=== PATIENT | female | born 1970 | race Two or more races ===

== ENCOUNTER 2020-03-27 09:09 | Day surgery (SDC) | payer OTHER, SELFPAY ==
--- NOTE | 2020-03-24 12:59 | HO.ANESPROP2 ---
Documented by User: Bibiana Angeles 03/26/20 14:35 HPI - Anesthesia Eval Consult details Narrative: 49yo F for uterine ablation PMFSH Past Medical History Medical History Anemia Arthritis, hip Asthma Hiatal hernia Migraine Family History Family History Father Diabetes mellitus Mother Cervical cancer Diabetes mellitus Maternal Aunt Cervical cancer Lung cancer Son No problems noted. Son No problems noted. Son No problems noted. Daughter No problems noted. Surgical History Surgical History History of appendectomy History of bilateral tubal ligation History of removal of ovarian cyst Social History Social History Are you a primary pharmacy care coordinator to a significant other at home: No Do you presently have visiting nurse or other home services: No Smoking Status: Current every day smoker Packs Per Day: 0.5 Cigarettes Per Day: 10.0 Years Smoked: 30 Smoked in Last 30 Days: Yes Patient Interested in Nicotine Replacement: No Patient Given Instructions on How to Stop Smoking: No Use of substances other than those prescribed or required for medical reasons: No Have you been hit, kicked, punched, or otherwise hurt by someone within the past year? If so, by whom?: No Advance Directives: No Advance Directives Information Provided: Yes (n/a) Advance Directives on File: No Recently lost weight without trying: No Meds Allergies Allergy/AdvReac Type Severity Reaction Status Date / Time penicillin V Allergy Unknown Unverified 12/18/19 00:00 Penicillins [PENICILLINS] Allergy Unknown RASH Unverified 03/12/20 19:11 Home Medications Medication Instructions Recorded Confirmed Type cholecalciferol (vitamin D3) 50 50 mcg PO DAILY 03/24/20 History mcg (2,000 unit) tablet esomeprazole magnesium 1 cap PO DAILY 03/24/20 03/24/20 History ferrous sulfate 325 mg (65 mg 325 mg PO DAILY 03/24/20 History iron) tablet fluticasone propionate INTRANASAL 03/24/20 History levonorgestrel 20 mcg/24 hours (5 VAGINAL 03/24/20 History yrs) 52 mg intrauterine device sucralfate 1 gram tablet PO 03/24/20 History sucralfate [Carafate] 10 ml PO BID 03/24/20 03/24/20 History Exam Exam Date and Time: March 24, 2020 1259 Pertinent Lab Results Pertinent Lab Results: 11/2019 WBC 8.8 HGB 11.1 (L) HCT 34.9 (L) PLT 305 Na 140 K 3.7 Cl 104 CO2 26 BUN 8 Creat 0.69 ECHO 02/2019: LV sys func nml, EF 55-60%, LA mod dilated, no valve pathology Assessment and Plan Assessment Anesthesia Assessment: Chart Reviewed (03/24/20 HT) Documented by User: Katy Mckinney 03/27/20 10:35 PMFSH Past Medical History Medical History Anemia Arthritis, hip Asthma Hiatal hernia Migraine Family History Family History Father Diabetes mellitus Mother Cervical cancer Diabetes mellitus Maternal Aunt Cervical cancer Lung cancer Son No problems noted. Son No problems noted. Son No problems noted. Daughter No problems noted. Surgical History Surgical History History of appendectomy History of bilateral tubal ligation History of removal of ovarian cyst Social History Social History Are you a primary pharmacy care coordinator to a significant other at home: No Do you presently have visiting nurse or other home services: No Smoking Status: Current every day smoker Packs Per Day: 0.5 Cigarettes Per Day: 10.0 Years Smoked: 30 Smoked in Last 30 Days: Yes Patient Interested in Nicotine Replacement: No Patient Given Instructions on How to Stop Smoking: No Use of substances other than those prescribed or required for medical reasons: No Have you been hit, kicked, punched, or otherwise hurt by someone within the past year? If so, by whom?: No Advance Directives: No Advance Directives Information Provided: Yes (n/a) Advance Directives on File: No Recently lost weight without trying: No Meds Allergies Allergy/AdvReac Type Severity Reaction Status Date / Time penicillin V Allergy Unknown Unverified 12/18/19 00:00 Penicillins [PENICILLINS] Allergy Unknown RASH Unverified 03/12/20 19:11 Home Medications Medication Instructions Recorded Confirmed Type cholecalciferol (vitamin D3) 50 50 mcg PO DAILY 03/24/20 History mcg (2,000 unit) tablet esomeprazole magnesium 1 cap PO DAILY 03/24/20 03/24/20 History ferrous sulfate 325 mg (65 mg 325 mg PO DAILY 03/24/20 History iron) tablet fluticasone propionate INTRANASAL 03/24/20 History levonorgestrel 20 mcg/24 hours (5 VAGINAL 03/24/20 History yrs) 52 mg intrauterine device sucralfate 1 gram tablet PO 03/24/20 History sucralfate [Carafate] 10 ml PO BID 03/24/20 03/24/20 History Exam Airway Mallampati Class: II TM Dist: >3cm Neck ROM: Full Loose/Missing/Broken Teeth: No Heart: RRR Lungs: CTA Assessment and Plan Assessment Anesthesia Assessment: Anesthesia Plan Discussed, Consent Obtained and Chart Reviewed Final Anesthetic Review NPO: Yes ASA Class: II Final Preanesthetic Review: Meds & Allergies Reviewed, Consent Obtained/Reviewed, Med/Surg/Anes Hx Reviewed and Anes Risks/Benef Reviewed Patient Risk: Intermediate Procedure Risk: Low Anesthetic Plan Anesthetic Plan: GA Disposition: Standard PACU
[2020-03-27] VITALS (7 sets, daily range): BP systolic 112–143; BP diastolic 68–84; PULSE 64–83; RESP 16–18; TEMP 36.3–36.6; O2SAT 97–100; BMI 30.7
[2020-03-27 10:07] LABS: UPreg QC Valid YES; Urine Pregnancy NEGATIVE (NEGATIVE)
[2020-03-27] MEDS: Lactated Ringers 1,000 ML 100 ML IVCONT (10:08)
[2020-03-27] MEDS: Albuterol Sulfate (0.083%) 2.5 MG/3 ML VIAL.NEB INHALE (10:09)
--- NOTE | 2020-03-27 11:39 | PM.OP ---
Brief Operative Note Date of procedure: 03/27/20 Pre-op diagnosis: Menometrorrhagia Post-op diagnosis: same Procedure: NovaSure endometrial ablation Anesthesia: MAC Surgeon: Mauricio Menjivar Estimated blood loss (mL): 0 Pathology: none sent Condition: stable Disposition: PACU
--- NOTE | 2020-03-27 12:04 | P.BOP_ITS ---
Brief Operative Note Date of procedure: 03/27/20 Pre-op diagnosis: Menometrorrhagia Post-op diagnosis: same Procedure: NovaSure endometrial ablation Under MAC, in a dorsal lithotomy position, the patient was prepped and draped in the usual sterile manner. Bimanual exam prior to prepping revealed a mobile, anteverted uterus. A speculum was placed in the vagina and the anterior lip of the cervix was grasped with a single toothed tenaculum and brought forward. Taki ng care not to enter deep into the uterus, a sound was passed inside to measure the length of the uterus and cervix. This length was found to be 8 cm. Next, Hegar dilator was inserted into the cervical os to measure the cervical length which was 3 cm. This yielded an endometrial cavity length of 5 cm. A series of Hegar dilators were then inserted sequentially into the cervical os up to a size of 5 mm. The Novasure device was then opened and tested; the fan deployed easily. The instrument was set to the correct cavity length and introduced into the uterine cavity. The fan was slowly deployed with gentle movements to ensure a snug fit within the cavity. The cavity width read 4.5 cm. The measurements were imported and a cavity check was done. The trumpet was then slid down to the cervix and the device was activated. The total burn time was 90 seconds. The fan was retracted and device removed. The fan was examined and revealed charred tissue. The tenaculum was removed and the cervix examined for hemostasis which was achieved using pressure. Finally the speculum was removed. The patient tolerated the procedure well and was brought to the recovery room in a stable condition. At the end of the procedure all sponges and instruments were counted and correct. The blood loss was minimal and there were no complications. Anesthesia: MAC Surgeon: Mauricio Menjivar Estimated blood loss (mL): 0 Pathology: none sent Condition: stable Disposition: PACU
[2020-03-27] MEDS: Acetaminophen 325 MG TABLET 650 MG PO (12:35)
--- NOTE | 2020-03-27 13:25 | HO.POSTANES ---
Post Anesthesia Evaluation Post Anesthesia Evaluation Vital Signs: Vital Signs Temp Pulse Resp BP Pulse Ox 03/27/20 12:40 97.3 F 73 16 133/72 100 03/27/20 12:23 67 16 125/73 99 03/27/20 12:02 64 18 116/69 100 03/27/20 11:57 67 18 125/68 100 03/27/20 11:52 74 16 120/73 100 03/27/20 11:47 97.3 F 75 16 112/72 100 03/27/20 09:23 98 F 83 18 143/84 H 97 Anesthesia: General LMA Mental Status: Awake Pain Control: Satisfactory Nausea/Vomiting: None Hydration: Adequate Anesthesia-Related Issues: No Anes. Related Issues
== END 2020-03-27 13:35 | disposition home or self-care (01) ==
PROVIDERS: PCP Nurse Practitioner Family; Visit Provider Obstetrics & Gynecology
PROC: (CPT 58353; principal; 2020-03-27 11:20)
DX: N92.1 Excessive and frequent menstruation with irregular cycle (principal); Z98.51 Tubal ligation status; Z80.49 Family history of malignant neoplasm of other genital organs; D64.9 Anemia, unspecified; J45.909 Unspecified asthma, uncomplicated; Z79.51 Long term (current) use of inhaled steroids; Z79.899 Other long term (current) drug therapy; Z88.0 Allergy status to penicillin
CPT/HCPCS: 58353; 81025; J1100; J1885; J2250; J2405; J3010

== ENCOUNTER 2020-05-28 13:17 | Outpatient (REF) | payer OTHER, SELFPAY | END 2020-05-28 13:18 | disposition home or self-care (01) | LOC: HO.LAB 13:17 | PROVIDERS: Visit Provider Internal Medicine | DX: Z20.828 Contact with and (suspected) exposure to other viral communicable diseases (principal) | CPT/HCPCS: C9803; U0003 ==

== ENCOUNTER → 2020-06-10 14:46 | Outpatient (BNVA) | payer OTHER, SELFPAY | PROVIDERS: PCP Nurse Practitioner Family; Visit Provider Obstetrics & Gynecology | DX: Z76.89 Persons encountering health services in other specified circumstances (principal) ==

== ENCOUNTER 2020-07-23 14:20 | Outpatient (REF) | payer OTHER, SELFPAY | END 2020-07-23 14:21 | disposition home or self-care (01) | LOC: HO.LAB 14:20 | PROVIDERS: Visit Provider Internal Medicine | DX: Z20.822 Contact with and (suspected) exposure to COVID-19 (principal) | CPT/HCPCS: 36415; C9803; U0003 ==

== ENCOUNTER 2020-08-26 10:27 | Emergency (ER) | payer OTHER, SELFPAY ==
[2020-08-26 10:28] VITALS: BP 159/82; PULSE 77; RESP 16; TEMP 36.8; O2SAT 100; BMI 31.1
--- NOTE | 2020-08-26 12:11 | ED_ITS ---
HPI - Back Pain/Injury General Chief Complaint: Back Pain/Injury Stated Complaint: leg pain, low back pain Time Seen by Provider: 08/26/20 11:15 Source: patient Mode of arrival: ambulatory History of Present Illness HPI Narrative: 49-year-old female with a past medical history of anemia, arthritis, asthma, chronic constipation, GERD, appendectomy, migraines, presenting to the ED complaining of acute on chronic low back/buttock pain radia ting down right lower extremity x years. Denies known injury/trauma or falls, numbness/tingling, weakness, urinary incontinence/retention, fever, chills Related Data Home Medications Medication Instructions Recorded Confirmed esomeprazole magnesium 1 cap PO DAILY 03/24/20 06/10/20 fluticasone propionate INTRANASAL 03/24/20 06/10/20 esomeprazole magnesium 20 mg 20 mg PO DAILY 04/29/20 06/10/20 capsule,delayed release Previous Rx's Medication Instructions Recorded acetaminophen [Tylenol] 650 mg PO Q6H PRN #30 cap 03/27/20 ibuprofen 600 mg PO Q8H PRN #20 tab 03/27/20 esomeprazole magnesium 20 mg 20 mg PO BID 30 Days #60 cap 04/20/20 capsule,delayed release sennosides 8.6 mg-docusate sodium 1 tab-cap PO BEDTIME 30 Days #30 04/20/20 50 mg tablet tab acetaminophen [Tylenol Extra 500 mg PO Q6H PRN #20 tab 08/26/20 Strength] cyclobenzaprine 5 mg PO Q8H PRN 5 Days #14 tab 08/26/20 lidocaine [Lidoderm] 1 patch TOPICAL DAILY PRN #30 ea 08/26/20 MDD remove after 12 hours Allergies Allergy/AdvReac Type Severity Reaction Status Date / Time penicillin V Allergy Unknown rash, hives Verified 06/10/20 15:01 Penicillins [PENICILLINS] Allergy Unknown RASH Verified 06/10/20 15:01 Review of Systems Review of Systems: Constitutional: No Fever, No Chills Genitourinary: No Urinary Frequency, No Hematuria, No Urinary Incontinence/retention Musculoskeletal: +back pain/buttock, No Myalgias, No Joint Swelling Skin: No Skin Lesions, No rash Neuro: No Weakness, No Numbness, No Paresthesias Yes all other systems are reviewed and are negative [facility] Past Medical History Attestation statement: The following information was validated with the patient. Medical History (Updated 08/26/20 @ 12:12 by SANGITA Carr) Anemia Arthritis, hip Asthma Chronic constipation LUCI I (cervical intraepithelial neoplasia I) GERD (gastroesophageal reflux disease) Hiatal hernia Mesenteric panniculitis Migraine Uterine fibroid Surgical History History of appendectomy History of bilateral tubal ligation History of colonoscopy History of removal of ovarian cyst Hx of endoscopy Family History Family History Father Diabetes mellitus History of colon cancer Mother Cervical cancer Diabetes mellitus Maternal Aunt Cervical cancer Lung cancer Son No problems noted. Son No problems noted. Son No problems noted. Daughter No problems noted. Social History Social History Alcohol intake: current Alcohol intake frequency: holidays/special occasions only Smoking Status: Current every day smoker Packs Per Day: 0.5 Cigarettes Per Day: 10.0 Years Smoked: 30 Advance Directives: No Advance Directives Information Provided: Yes Sexual orientation: Straight/Heterosexual Gender identity: female Physical Exam Vital Signs: Vital Signs: Last Vital Signs Temp 98.2 F 08/26/20 10:28 Pulse 77 08/26/20 10:28 Resp 16 08/26/20 10:28 BP 159/82 H 08/26/20 10:28 Pulse Ox 100 08/26/20 10:28 Body Mass Index 31.1 Const: General: cooperative, healthy appearing and no acute distress Orientation/consciousness: patient oriented x3 Limitations: no limitations HENMT: Head: Yes normal to inspection Ears: hearing grossly normal bilaterally General nose exam: Normal external nose present Face and sinus: Yes normal facial exam Eyes: General: appearance normal, both eyes and all related structures EOM: EOMs intact bilaterally Neck: Other: No midline cervical spinous tenderness Neck: Yes normal visual inspection Resp: Effort & Inspection: normal respiratory effort Cardio: Rate: regular rate Peripheral pulses: dorsalis pedis present GI: Inspection: Yes normal to inspection Palpation (GI): Soft to palpation and nontender Back/Spine/Pelvis: Other: No midline thoracic/lumbar spinous tenderness. + right-sided lumbar MSK/buttock tenderness to palpation, reproducing patient's subjective complaint Skin: Rashes: no rashes Wounds: no wounds Neuro: Other: No saddle anesthesia General: patient oriented x3, gait normal, tone normal and moves all extremities Gait exam (Neuro): Normal gait present Motor exam (neuro): 5/5 motor strength present throughout, Normal motor muscle tone present throughout and Motor abnormalities not present Extrem: General: Yes normal to inspection MDM - Back Pain/Injury MDM Narrative Medical decision making narrative: On exam VSS, NAD, well appearing, no midline spinous tenderness throughout, no red flag symptoms, no saddle anesthesia, physical exam as above. Likely acute on chronic MSK pain/sciatica. Low concern for cauda equina/cord compression or fracture Discharge Plan Discharge Clinical Impression: Lumbar radiculopathy Patient Disposition: Home, Self-Care Instructions: Sciatica (ED) Additional Instructions: Your pain is likely musculoskeletal Flexeril is a muscle relaxer, take at night as it makes you drowsy, do not drive, drink alcohol, or operate machinery while taking it Continue taking ibuprofen with food which helps with anti inflammation and pain Lidoderm patches are numbing patches, apply to painful area In addition take Tylenol at home Make sure you follow-up with her primary care doctor. You may need physical therapy as well as pain management If symptoms persist or worsen, pain becomes unbearable, you developed urinary retention or incontinence, or weakness return to the ED Prescriptions: New acetaminophen [Tylenol Extra Strength] 500 mg tablet 500 mg PO Q6H PRN (Reason: pain or fever) Qty: 20 RF: 0 lidocaine [Lidoderm] 5 % adhesive patch,medicated 1 patch topical DAILY MDD remove after 12 hours PRN (Reason: pain) Qty: 30 RF: 0 cyclobenzaprine 5 mg tablet 5 mg PO Q8H PRN (Reason: pain (scale score 7-10)) 5 Days Qty: 14 RF: 0 No Action fluticasone propionate 50 mcg/actuation spray,suspension intranasal RF: 0 esomeprazole magnesium 20 mg capsule,delayed release(DR/EC) 1 cap PO DAILY RF: 0 acetaminophen [Tylenol] 325 mg capsule 650 mg PO Q6H PRN (Reason: pain) Qty: 30 RF: 0 ibuprofen 600 mg tablet 600 mg PO Q8H PRN (Reason: pain) Qty: 20 RF: 0 esomeprazole magnesium [Nexium] 20 mg capsule,delayed release(DR/EC) 20 mg PO BID 30 Days Qty: 60 RF: 4 sennosides-docusate sodium [Lax Stool Softener With Senna] 8.6-50 mg tablet 1 tab-cap PO BEDTIME 30 Days Qty: 30 RF: 3 esomeprazole magnesium [Nexium] 20 mg capsule,delayed release(DR/EC) 20 mg PO DAILY RF: 0 Referrals: Nathan Hudson, [employer] [Primary Care Provider] - 2 days Stand Alone Forms: Work/School Release
== END 2020-08-26 12:23 | disposition home or self-care (01) ==
PROVIDERS: Emergency Provider Emergency Medicine; PCP Nurse Practitioner Family
DX: M54.16 Radiculopathy, lumbar region (principal); M54.5 Low back pain; M79.605 Pain in left leg; M79.604 Pain in right leg; F17.200 Nicotine dependence, unspecified, uncomplicated; Z71.6 Tobacco abuse counseling; Z79.899 Other long term (current) drug therapy
CPT/HCPCS: 99283

== ENCOUNTER 2020-09-24 10:59 | Outpatient (REF) | payer OTHER, SELFPAY ==
--- NOTE | ~2020-09-24 | XR_ITS ---
EXAMINATION: XR LUMBOSACRAL SPINE CLINICAL INFORMATION: Radiculopathy, lumbar region COMPARISON: 06/21/2016 TECHNIQUE: Three views of the lumbosacral spine. FINDINGS: No fracture or subluxation. Vertebral body height and alignment is maintained. Disc spaces are maintained. The sacroiliac joints are symmetric. The sacrum appears intact. The bowel gas pattern is unremarkable. XR/XR lumbar spine 2-3V IMPRESSION: No significant abnormality of the lumbar spine.
== END 2020-09-24 11:00 | disposition home or self-care (01) ==
LOC: HO.HMGCX 10:59
PROVIDERS: PCP Nurse Practitioner Family; Visit Provider Nurse Practitioner Family
DX: M54.16 Radiculopathy, lumbar region (principal)
CPT/HCPCS: 72100

== ENCOUNTER 2020-10-28 16:09 | Outpatient (REF) | payer OTHER, SELFPAY ==
--- NOTE | ~2020-10-28 | MR_ITS ---
MR LUMBAR SPINE WITHOUT CONTRAST CLINICAL INFORMATION: Lumbar region radiculopathy. COMPARISON: Lumbar spine radiographs 09/24/2020. TECHNIQUE: MRI of the lumbar spine was obtained using routine sequences without contrast. FINDINGS: There are 5 nonrib-bearing lumbar-type vertebral bodies. Lumbar alignment is maintained. Vertebral body heights are preserved. Disc volumes are maintained and the disc foraminal hydrated. There is no bone marrow edema. There are no acute fractures. Multi fibroid uterus is partially imaged. Partially imaged septated cyst within the left pelvis for which a pelvic ultrasound is recommended for further assessment. L1-L2: Disc contour is normal. Mild bilateral facet arthropathy. No central canal stenosis and no foraminal stenosis. L2-L3: Disc contour is normal. Mild to moderate bilateral facet arthropathy. No central canal stenosis and no foraminal stenosis. L3-L4: Small annular disc bulge and mild to moderate bilateral facet arthropathy. No central canal stenosis. Mild foraminal encroachment bilaterally. L4-L5: Small annular disc bulge and moderate bilateral facet arthropathy. No central canal stenosis. Mild foraminal encroachment bilaterally. L5-S1: Shallow left paracentral disc protrusion results in mass effect on the traversing left S1 nerve root within the left subarticular zone. Background annular disc bulge and mild to moderate bilateral facet arthropathy. Mild bilateral foraminal encroachment. MR/MR lumbar spine wo con IMPRESSION: - At L5-S1, a shallow left paracentral disc protrusion results in mass effect on the traversing left S1 nerve root within the left subarticular zone. Additional mild spondylitic changes throughout the lumbar spine as described. - Partially imaged septated cyst within the left pelvis for which a pelvic ultrasound is recommended for further assessment.
== END 2020-10-28 16:10 | disposition home or self-care (01) ==
LOC: HO.MRI 16:09
PROVIDERS: Visit Provider Nurse Practitioner Family
DX: M54.16 Radiculopathy, lumbar region (principal)
CPT/HCPCS: 72148

== ENCOUNTER 2020-11-03 13:54 | Outpatient (REF) | payer OTHER, SELFPAY ==
--- NOTE | ~2020-11-03 | US_ITS ---
EXAMINATION: US PELVIC AND TRANSVAGINAL CLINICAL INFORMATION: Follow up left pelvic cyst seen on MRI. COMPARISON: Previous lumbar spine MRI 10/28/2020 and pelvic ultrasound 03/23/2020. TECHNIQUE: Transabdominal and transvaginal pelvic ultrasound was performed. Transvaginal exam was performed for better visualization of the uterus and ovaries. FINDINGS: The uterus is slightly enlarged and measures 10.3 x 6.5 x 6.7 cm in dimension. There are multiple uterine lesions suggestive of fibroids measuring 3 x 2.4 x 2.7 cm in the left posterior uterine body, 2.7 x 1.9 x 2.5 cm in the right posterior uterine body, 3.8 x 3.5 x 4.8 cm in the central upper uterine body near the endometrium and 0.6 x 0.7 x 1 cm exophytic to the right uterine fundus. The endometrium is difficult to visualize due to the fibroids. Endometrial thickness is estimated at 0.9 cm. The endometrium appears slightly heterogeneous with several small cystic areas. The cervix is normal appearing. The right ovary is normal and measures 1.8 x 1.2 x 1.3 cm. The left ovary measures 2.8 x 1.7 x 3 cm. There is a 1.9 x 1.2 x 2.4 cm simple left ovarian cyst. This is new from previous pelvic ultrasound February 2020. There are prominent pelvic vessels suggestive of pelvic congestion. There is no ascites. US/US pelvic and transvaginal IMPRESSION: Enlarged fibroid uterus. Endometrial thickness measures 0.9 cm and is heterogeneous with small cystic areas. This is abnormally thickened in a postmenopausal patient. 1.9 x 1.2 x 2.4 cm simple left ovarian cyst new from previous exam February 2020. Prominent pelvic vessels suggestive of pelvic congestion.
== END 2020-11-03 13:55 | disposition home or self-care (01) ==
LOC: HO.HMGCX 13:54
PROVIDERS: PCP Nurse Practitioner Family; Visit Provider Nurse Practitioner Family
DX: M79.9 Soft tissue disorder, unspecified (principal)
CPT/HCPCS: 76830; 76856

== ENCOUNTER 2020-11-16 11:38 | Outpatient (REF) | payer OTHER, SELFPAY ==
--- NOTE | ~2020-11-16 | US_ITS ---
EXAMINATION: PELVIC ULTRASOUND CLINICAL INFORMATION: Ovarian cyst COMPARISON: Previous exam most recent 11/03/2020 TECHNIQUE: Transabdominal and transvaginal pelvic ultrasound was performed. Transvaginal exam was performed for better visualization of the uterus and ovaries. FINDINGS: The uterus is anteverted and measures 8.7 x 6.2 x 6.5 cm in dimension. There are 4 uterine fibroids that appear unchanged recent exam, largest measuring 4 x 3 x 3.6 cm in the fundus. Endometrial thickness is normal measuring 0.6 cm. The right ovary is seen transabdominally only and is normal-appearing. The right ovary measures 2.3 x 1.2 x 1.3 cm. The left ovary measures 2.4 x 1.6 x 1.2 cm. There is a 1.3 x 0.7 x 1 cm simple left ovarian cyst. There is no fluid in pelvis. US/US transvaginal IMPRESSION: Fibroid uterus. 1.3 x 0.7 x 1 cm simple left ovarian cyst. This is decreased from recent exam when this measured 1.9 x 1.2 x 2.4 cm.
--- NOTE | ~2020-11-16 | US_ITS ---
EXAMINATION: PELVIC ULTRASOUND CLINICAL INFORMATION: Ovarian cyst COMPARISON: Previous exam most recent 11/03/2020 TECHNIQUE: Transabdominal and transvaginal pelvic ultrasound was performed. Transvaginal exam was performed for better visualization of the uterus and ovaries. FINDINGS: The uterus is anteverted and measures 8.7 x 6.2 x 6.5 cm in dimension. There are 4 uterine fibroids that appear unchanged recent exam, largest measuring 4 x 3 x 3.6 cm in the fundus. Endometrial thickness is normal measuring 0.6 cm. The right ovary is seen transabdominally only and is normal-appearing. The right ovary measures 2.3 x 1.2 x 1.3 cm. The left ovary measures 2.4 x 1.6 x 1.2 cm. There is a 1.3 x 0.7 x 1 cm simple left ovarian cyst. There is no fluid in pelvis. US/US pelvic complete IMPRESSION: Fibroid uterus. 1.3 x 0.7 x 1 cm simple left ovarian cyst. This is decreased from recent exam when this measured 1.9 x 1.2 x 2.4 cm.
== END 2020-11-16 11:39 | disposition home or self-care (01) ==
LOC: HO.US 11:38
PROVIDERS: Visit Provider Obstetrics & Gynecology
DX: N83.202 Unspecified ovarian cyst, left side (principal)
CPT/HCPCS: 76830; 76856

== ENCOUNTER → 2020-11-24 13:19 | Outpatient (BNVA) | payer OTHER, SELFPAY | PROVIDERS: PCP Nurse Practitioner Family; Visit Provider Obstetrics & Gynecology ==

== ENCOUNTER 2020-11-30 12:56 | Emergency (ER) | payer OTHER, SELFPAY ==
--- NOTE | ~2020-11-30 | XR_ITS ---
EXAMINATION: XR CHEST CLINICAL INFORMATION: Cough. Shortness of breath. COMPARISON: Previous chest x-ray March 2019 TECHNIQUE: Frontal view of the chest was obtained. FINDINGS: The cardiac and mediastinal contours are normal. The lungs are clear. There is no pleural effusion or pneumothorax. There are are degenerative changes of the spine and curvature to the right. XR/XR chest 1V IMPRESSION: No evidence for acute disease in the chest.
[2020-11-30 13:04] VITALS: BP 154/98; PULSE 97; RESP 19; TEMP 37.1; O2SAT 99; BMI 30.2
--- NOTE | 2020-11-30 13:10 | ECG_ITS ---
Test Reason : SHORTNESS OF BREATH Blood Pressure : / mmHG Vent. Rate : 086 BPM Atrial Rate : 086 BPM P-R Int : 148 ms QRS Dur : 092 ms QT Int : 372 ms P-R-T Axes : 045 005 087 degrees QTc Int : 445 ms Normal sinus rhythm Voltage criteria for left ventricular hypertrophy Nonspecific T wave abnormality Abnormal ECG When compared with ECG of 27-MAR-2019 16:13, Nonspecific T wave abnormality now evident in Anterolateral leads Referred By: Idalia Palomino Electronically Signed By:LAVERN MEDRANO MD
--- NOTE | 2020-11-30 13:11 | ED.URI ---
HPI - URI/Sore Throat General Chief Complaint: Upper Respiratory Symptoms <Candace Charles NP - Last Filed: 11/30/20 19:44> Stated Complaint: DIFF BREATHING <Candace Charles NP - Last Filed: 11/30/20 19:44> Time Seen by Provider: 11/30/20 13:07 <Candace Charles NP - Last Filed: 11/30/20 19:44> Source: patient <Candace Charles NP - Last Filed: 11/30/20 19:44> Mode of arrival: ambulatory <Candace Charles NP - Last Filed: 11/30/20 19:44> Limitations: no limitations <Candace Charles NP - Last Filed: 11/30/20 19:44> History of Present Illness HPI Narrative: 50-year-old female with a past medical history of asthma here with complaints of dry cough with wheezing and shortness of breath since yesterday. Also complaining of some left-sided chest pain which is worsened with breathing and movement. No fevers or chills. No leg swelling or pain. COVID positive in September. Last prednisone use 1 month ago. No h/o admissions for asthma or intubation <Candace Charles NP - Last Filed: 11/30/20 19:44> Related Data Home Medications: Home Medications Medication Instructions Recorded Confirmed fluticasone propionate INTRANASAL 03/24/20 10/08/20 Previous Rx's Medication Instructions Recorded acetaminophen [Tylenol] 650 mg PO Q6H PRN #30 cap 03/27/20 esomeprazole magnesium 20 mg 20 mg PO BID 30 Days #60 cap 04/20/20 capsule,delayed release acetaminophen [Tylenol Extra 500 mg PO Q6H PRN #20 tab 08/26/20 Strength] lidocaine [Lidoderm] 1 patch TOPICAL DAILY PRN #30 ea 08/26/20 MDD remove after 12 hours diclofenac sodium 75 mg 75 mg PO BID PRN 30 Days #60 tab 09/24/20 tablet,delayed release tizanidine 2 mg tablet 2 mg PO BID PRN 15 Days #30 tab 09/24/20 albuterol sulfate 2 inh INHALATION Q4-6H PRN #1 ea 11/30/20 prednisone 40 mg PO DAILY #8 tab 11/30/20 <Candace Charles NP - Last Filed: 11/30/20 19:44> Allergies/Adverse Reactions: Allergies Allergy/AdvReac Type Severity Reaction Status Date / Time penicillin V Allergy Unknown rash, hives Verified 11/24/20 13:20 Penicillins [PENICILLINS] Allergy Unknown RASH Verified 11/24/20 13:20 <Candace Charles NP - Last Filed: 11/30/20 19:44> Review of Systems Review of Systems: Yes all other systems are reviewed and are negative <Candace Charles NP - Last Filed: 11/30/20 19:44> Constitutional: Constitutional: Reports no additional constitutional complaints, Denies body ache(s), Denies chills, Denies fever(s), Denies headache(s) and Denies weakness <Candace Charles NP - Last Filed: 11/30/20 19:44> Eyes: Eyes: Reports no additional eye complaints and Denies change in vision <Candace Charles NP - Last Filed: 11/30/20 19:44> ENT: Reports system reviewed and no additional complaints, except as documented, Denies dizziness, Denies headache(s), Denies nasal congestion, Denies nasal discharge and Denies neck pain <Candace Charles NP - Last Filed: 11/30/20 19:44> Cardiovascular: Cardiovascular: Reports no additional cardiovascular complaints, Reports chest pain, Denies leg edema and Reports dyspnea <Candace Charles NP - Last Filed: 11/30/20 19:44> Respiratory: Respiratory: Reports no additional respiratory complaints, Reports cough and Reports dyspnea <Candace Charles NP - Last Filed: 11/30/20 19:44> Gastrointestinal: Gastrointestinal: Reports no additional gastrointestinal complaints, Denies abdominal pain, Denies diarrhea, Denies nausea and Denies vomiting <Candace Charles NP - Last Filed: 11/30/20 19:44> Genitourinary: Genitourinary: Reports no additional female genitourinary complaints and Denies urinary incontinence <Candace Charles NP - Last Filed: 11/30/20 19:44> Musculoskeletal: Musculoskeletal: Reports no additional musculoskeletal complaints, Denies back pain, Denies arthralgias, Denies joint swelling, Denies neck pain, Denies numbness and Denies tingling <Candace Charles NP - Last Filed: 11/30/20 19:44> Integumentary/Breasts: Skin/Breast: Reports system reviewed and no additional complaints, except as docu and Denies rash <Candace Charles NP - Last Filed: 11/30/20 19:44> Neurologic: Reports system reviewed and no additional complaints, except as documented, Denies Abnormal speech present, Denies dizziness, Denies headache(s), Denies numbness, Denies tingling and Denies weakness <Candace Charles NP - Last Filed: 11/30/20 19:44> [facility] Past Medical History Attestation statement: The following information was validated with the patient. <Candace Charles NP - Last Filed: 11/30/20 19:44> Source: old records reviewed and nursing notes reviewed <Candace Charles NP - Last Filed: 11/30/20 19:44> Medical History: Medical History Anemia Arthritis, hip Asthma Chronic constipation LUCI I (cervical intraepithelial neoplasia I) GERD (gastroesophageal reflux disease) Hiatal hernia Mesenteric panniculitis Migraine Uterine fibroid <Candace Charles NP - Last Filed: 11/30/20 19:44> Surgical History: Surgical History History of appendectomy History of bilateral tubal ligation History of colonoscopy History of removal of ovarian cyst Hx of endoscopy <Candace Charles NP - Last Filed: 11/30/20 19:44> Family History Family History: Family History Father Diabetes mellitus History of colon cancer Mother Cervical cancer Diabetes mellitus Maternal Aunt Cervical cancer Lung cancer Son No problems noted. Son No problems noted. Son No problems noted. Daughter No problems noted. <Candace Charles NP - Last Filed: 11/30/20 19:44> Social History Social History: Social History Are you a primary point of care specialist to a significant other at home: No Do you presently have visiting nurse or other home services: No Alcohol intake: never Patient Tobacco Use Status: Never used Tobacco Cigarette Packs Per Day: 0.5 Cigarettes Per Day: 10.0 Years Smoked: 30 Use of substances other than those prescribed or required for medical reasons: No Advance Directives: No Advance Directives Information Provided: No Patient : No Sexual orientation: Straight/Heterosexual Gender identity: female <Candace Charles NP - Last Filed: 11/30/20 19:44> Physical Exam Vital Signs: Vital Signs: Last Vital Signs Temp 98.0 F 11/30/20 14:47 Pulse 87 11/30/20 14:47 Resp 16 11/30/20 14:47 BP 141/88 H 11/30/20 14:47 Pulse Ox 97 11/30/20 14:47 Body Mass Index 30.2 <Candace Charles NP - Last Filed: 11/30/20 19:44> Vital Signs: Last Vital Signs Temp 98.0 F 11/30/20 14:47 Pulse 87 11/30/20 14:47 Resp 16 11/30/20 14:47 BP 141/88 H 11/30/20 14:47 Pulse Ox 97 11/30/20 14:47 Body Mass Index 30.2 <Morris Bentley MD - Last Filed: 12/02/20 13:44> Const: General: cooperative, healthy appearing, comfortable and no acute distress <Candace Charles NP - Last Filed: 11/30/20 19:44> Orientation/consciousness: patient oriented x3 <Candace Charles NP - Last Filed: 11/30/20 19:44> Limitations: no limitations <Candace Charles NP - Last Filed: 11/30/20 19:44> HENMT: Head: Yes normal to inspection <Candace Charles NP - Last Filed: 11/30/20 19:44> Ears: hearing grossly normal bilaterally <Candace Charles NP - Last Filed: 11/30/20 19:44> General nose exam: Normal external nose present <Candace Charles NP - Last Filed: 11/30/20 19:44> Face and sinus: Yes normal facial exam <Candace Charles NP - Last Filed: 11/30/20 19:44> Mouth: Normal oral and palatal mucosa present <Candace Charles NP - Last Filed: 11/30/20 19:44> Throat: Yes posterior oropharynx normal <Candace Charles NP - Last Filed: 11/30/20 19:44> Eyes: General: appearance normal, both eyes and all related structures <Candace Charles NP - Last Filed: 11/30/20 19:44> Pupils: Equal, round and reactive pupils present <Candace Charles NP - Last Filed: 11/30/20 19:44> Neck: Neck: Yes normal visual inspection <Candace Charles NP - Last Filed: 11/30/20 19:44> Chest: Other: Central chest tender to palpate <Candace Charles NP - Last Filed: 11/30/20 19:44> Chest palpation & inspection: normal inspection of the chest <Candace Charles NP - Last Filed: 11/30/20 19:44> Resp: Other: Prolonged expirations, expiratory wheezing throughout <Candace Charles NP - Last Filed: 11/30/20 19:44> Effort & Inspection: normal respiratory effort <Candace Charles NP - Last Filed: 11/30/20 19:44> Auscultation: clear to auscultation bilaterally <Candace Charles NP - Last Filed: 11/30/20 19:44> Cardio: Rate: regular rate <Candace Charles NP - Last Filed: 11/30/20 19:44> Rhythm: regular rhythm <Candace Charles NP - Last Filed: 11/30/20 19:44> Peripheral pulses: Peripheral pulses 2+ throughout <Candace Charles NP - Last Filed: 11/30/20 19:44> GI: Inspection: Yes normal to inspection <Candace Charles NP - Last Filed: 11/30/20 19:44> Palpation (GI): Soft to palpation and nontender <Candace Charles NP - Last Filed: 11/30/20 19:44> Auscultation: normal bowel sounds <Candace Charles NP - Last Filed: 11/30/20 19:44> Back/Spine/Pelvis: Thoracic/Lumbar Spine: thoracic and lumbar spine normal to inspection <Candace Charles NP - Last Filed: 11/30/20 19:44> Skin: General skin exam: no rashes or lesions noted <Candace Charles NP - Last Filed: 11/30/20 19:44> Neuro: General: patient oriented x3, no focal motor deficits and normal sensation to monofilament <Candace Charles NP - Last Filed: 11/30/20 19:44> Cranial nerves: Yes Equal, round and reactive pupils present <Candace Charles NP - Last Filed: 11/30/20 19:44> Cognition (Neuro): normal cognition <Candace Charles NP - Last Filed: 11/30/20 19:44> Speech: No Abnormal speech present <Candace Charles NP - Last Filed: 11/30/20 19:44> Gait exam (Neuro): Normal gait present <Candace Charles NP - Last Filed: 11/30/20 19:44> Motor exam (neuro): 5/5 motor strength present throughout <Candace Charles NP - Last Filed: 11/30/20 19:44> Extrem: General: Yes normal to inspection, Yes no pedal edema and Yes no calf tenderness <Candace Charles NP - Last Filed: 11/30/20 19:44> Course Course Course Narrative: 50 yo with a past medical history of asthma here with dry cough, wheezing, shortness of breath since yesterday with some reproducible/MS left sided chest pain since yesterday. On arrival patient alert and oriented she does have some reproducible chest discomfort with some mild expiratory wheezing on exam. Will need labs, chest x-ray, EKG. 1540-chest x-ray shows no underlying abnormality. EKG shows no ischemic changes. Labs are unremarkable. Patient is feeling improved after receiving Solu-Medrol, magnesium and a DuoNeb. Likely asthma exacerbation. Will send home with course of prednisone. Reviewed worrisome signs and symptoms of when to return to the emergency department. Comfortable discharge home. <Candace Charles NP - Last Filed: 11/30/20 19:44> I have reviewed the chart <Morris Bentley MD - Last Filed: 12/02/20 13:44> MDM - URI/Sore Throat MDM Narrative Medical decision making narrative: ACS, asthma exacerbation, pe, pna Less likely ACS with EKG showed chin shows no ischemic changes, atypical chest pain and negative troponin Less likely PE with negative D-dimer, no hypoxia or tachypnea or clinical findings for DVT <Candace Charles NP - Last Filed: 11/30/20 19:44> Medical Records Attestation: I reviewed the patient's medical records. <Candace Charles NP - Last Filed: 11/30/20 19:44> Lab Data Attestation: I reviewed the patient's lab results. <Candace Charles NP - Last Filed: 11/30/20 19:44> Result diagrams: : 11/30/20 13:59 11/30/20 14:59 <Candace Charles NP - Last Filed: 11/30/20 19:44> Labs: Lab Results 11/30/20 11/30/20 11/30/20 Range/Units 13:59 13:59 14:59 WBC 9.3 (4.8-10.8) X10*3/uL RBC 4.21 (4.20-5.50) X10*6/uL Hgb 11.6 L (12.0-16.0) g/dl Hct 36.2 L (37-47) % MCV 86.0 (80-98) fL MCH 27.6 (27.0-33.0) pg MCHC 32.0 (31.0-35.0) g/dl RDW 14.9 (11.0-16.0) % Plt Count 254 (160-400) X10*3/uL MPV 10.5 (9.4-12.3) fL Immature Gran % (Auto) 0.5 H (0.0-0.4) % Neut % (Auto) 68.9 (45-73) % Lymph % (Auto) 18.7 L (20-40) % Pershing % (Auto) 9.1 (2-11) % Eos % (Auto) 2.4 (0-4) % Baso % (Auto) 0.4 (0-2) % Lymph # (Auto) 1.7 (1.2-4.9) X10*3/uL Pershing # (Auto) 0.9 (0.1-1.2) X10*3/uL Eos # (Auto) 0.2 (0.0-0.4) X10*3/uL Baso # (Auto) 0.0 (0.0-0.2) X10*3/uL Abs Immat Gran (auto) 0.05 H (0.00-0.03) X10*3/uL Absolute Neuts (auto) 6.4 (2.0-8.3) X10*3/uL Absolute Nucleated RBC 0.000 (0.0-0.012) X10*3/uL Nucleated RBC % (auto) 0.0 (0.0-0.2) /100WBC PT 13.7 H (10.8-13.0) SEC INR 1.2 H (0.9-1.1) D-Dimer < 200 NG/ML Sodium (135-145) mmol/L Potassium (3.3-5.1) mmol/L Chloride (96-108) mmol/L Carbon Dioxide (22-29) mmol/L Anion Gap (12-20) BUN (9-16) mg/dL Creatinine (0.5-1.4) mg/dL Estim Creat Clear Calc Estimated GFR Random Glucose (60-115) mg/dL Calcium (8.4-10.2) mg/dL Magnesium (1.6-2.6) mg/dL Total Bilirubin (0.0-1.0) mg/dL Direct Bilirubin (0.0-0.5) mg/dL AST (5-31) U/L ALT (0-31) U/L Alkaline Phosphatase (39-117) U/L Troponin I High Sens < 3.5 (<3.5-17.0) ng/L Total Protein (6.5-8.0) g/dL Albumin (3.5-5.0) g/dL 11/30/20 Range/Units 14:59 WBC (4.8-10.8) X10*3/uL RBC (4.20-5.50) X10*6/uL Hgb (12.0-16.0) g/dl Hct (37-47) % MCV (80-98) fL MCH (27.0-33.0) pg MCHC (31.0-35.0) g/dl RDW (11.0-16.0) % Plt Count (160-400) X10*3/uL MPV (9.4-12.3) fL Immature Gran % (Auto) (0.0-0.4) % Neut % (Auto) (45-73) % Lymph % (Auto) (20-40) % Pershing % (Auto) (2-11) % Eos % (Auto) (0-4) % Baso % (Auto) (0-2) % Lymph # (Auto) (1.2-4.9) X10*3/uL Pershing # (Auto) (0.1-1.2) X10*3/uL Eos # (Auto) (0.0-0.4) X10*3/uL Baso # (Auto) (0.0-0.2) X10*3/uL Abs Immat Gran (auto) (0.00-0.03) X10*3/uL Absolute Neuts (auto) (2.0-8.3) X10*3/uL Absolute Nucleated RBC (0.0-0.012) X10*3/uL Nucleated RBC % (auto) (0.0-0.2) /100WBC PT (10.8-13.0) SEC INR (0.9-1.1) D-Dimer NG/ML Sodium 140 (135-145) mmol/L Potassium 3.6 (3.3-5.1) mmol/L Chloride 109 H (96-108) mmol/L Carbon Dioxide 26 (22-29) mmol/L Anion Gap 9 L (12-20) BUN 14 (9-16) mg/dL Creatinine 0.67 (0.5-1.4) mg/dL Estim Creat Clear Calc 109.0 Estimated GFR > 60 Random Glucose 124 H (60-115) mg/dL Calcium 9.0 (8.4-10.2) mg/dL Magnesium 2.8 H (1.6-2.6) mg/dL Total Bilirubin 0.5 (0.0-1.0) mg/dL Direct Bilirubin < 0.2 (0.0-0.5) mg/dL AST 12 (5-31) U/L ALT 10 (0-31) U/L Alkaline Phosphatase 59 (39-117) U/L Troponin I High Sens (<3.5-17.0) ng/L Total Protein 6.3 L (6.5-8.0) g/dL Albumin 3.9 (3.5-5.0) g/dL <Candace Charles NP - Last Filed: 11/30/20 19:44> Lab Results 11/30/20 11/30/20 11/30/20 Range/Units 13:59 13:59 14:59 WBC 9.3 (4.8-10.8) X10*3/uL RBC 4.21 (4.20-5.50) X10*6/uL Hgb 11.6 L (12.0-16.0) g/dl Hct 36.2 L (37-47) % MCV 86.0 (80-98) fL MCH 27.6 (27.0-33.0) pg MCHC 32.0 (31.0-35.0) g/dl RDW 14.9 (11.0-16.0) % Plt Count 254 (160-400) X10*3/uL MPV 10.5 (9.4-12.3) fL Immature Gran % (Auto) 0.5 H (0.0-0.4) % Neut % (Auto) 68.9 (45-73) % Lymph % (Auto) 18.7 L (20-40) % Pershing % (Auto) 9.1 (2-11) % Eos % (Auto) 2.4 (0-4) % Baso % (Auto) 0.4 (0-2) % Lymph # (Auto) 1.7 (1.2-4.9) X10*3/uL Pershing # (Auto) 0.9 (0.1-1.2) X10*3/uL Eos # (Auto) 0.2 (0.0-0.4) X10*3/uL Baso # (Auto) 0.0 (0.0-0.2) X10*3/uL Abs Immat Gran (auto) 0.05 H (0.00-0.03) X10*3/uL Absolute Neuts (auto) 6.4 (2.0-8.3) X10*3/uL Absolute Nucleated RBC 0.000 (0.0-0.012) X10*3/uL Nucleated RBC % (auto) 0.0 (0.0-0.2) /100WBC PT 13.7 H (10.8-13.0) SEC INR 1.2 H (0.9-1.1) D-Dimer < 200 NG/ML Sodium (135-145) mmol/L Potassium (3.3-5.1) mmol/L Chloride (96-108) mmol/L Carbon Dioxide (22-29) mmol/L Anion Gap (12-20) BUN (9-16) mg/dL Creatinine (0.5-1.4) mg/dL Estim Creat Clear Calc Estimated GFR Random Glucose (60-115) mg/dL Calcium (8.4-10.2) mg/dL Magnesium (1.6-2.6) mg/dL Total Bilirubin (0.0-1.0) mg/dL Direct Bilirubin (0.0-0.5) mg/dL AST (5-31) U/L ALT (0-31) U/L Alkaline Phosphatase (39-117) U/L Troponin I High Sens < 3.5 (<3.5-17.0) ng/L Total Protein (6.5-8.0) g/dL Albumin (3.5-5.0) g/dL 11/30/20 Range/Units 14:59 WBC (4.8-10.8) X10*3/uL RBC (4.20-5.50) X10*6/uL Hgb (12.0-16.0) g/dl Hct (37-47) % MCV (80-98) fL MCH (27.0-33.0) pg MCHC (31.0-35.0) g/dl RDW (11.0-16.0) % Plt Count (160-400) X10*3/uL MPV (9.4-12.3) fL Immature Gran % (Auto) (0.0-0.4) % Neut % (Auto) (45-73) % Lymph % (Auto) (20-40) % Pershing % (Auto) (2-11) % Eos % (Auto) (0-4) % Baso % (Auto) (0-2) % Lymph # (Auto) (1.2-4.9) X10*3/uL Pershing # (Auto) (0.1-1.2) X10*3/uL Eos # (Auto) (0.0-0.4) X10*3/uL Baso # (Auto) (0.0-0.2) X10*3/uL Abs Immat Gran (auto) (0.00-0.03) X10*3/uL Absolute Neuts (auto) (2.0-8.3) X10*3/uL Absolute Nucleated RBC (0.0-0.012) X10*3/uL Nucleated RBC % (auto) (0.0-0.2) /100WBC PT (10.8-13.0) SEC INR (0.9-1.1) D-Dimer NG/ML Sodium 140 (135-145) mmol/L Potassium 3.6 (3.3-5.1) mmol/L Chloride 109 H (96-108) mmol/L Carbon Dioxide 26 (22-29) mmol/L Anion Gap 9 L (12-20) BUN 14 (9-16) mg/dL Creatinine 0.67 (0.5-1.4) mg/dL Estim Creat Clear Calc 109.0 Estimated GFR > 60 Random Glucose 124 H (60-115) mg/dL Calcium 9.0 (8.4-10.2) mg/dL Magnesium 2.8 H (1.6-2.6) mg/dL Total Bilirubin 0.5 (0.0-1.0) mg/dL Direct Bilirubin < 0.2 (0.0-0.5) mg/dL AST 12 (5-31) U/L ALT 10 (0-31) U/L Alkaline Phosphatase 59 (39-117) U/L Troponin I High Sens (<3.5-17.0) ng/L Total Protein 6.3 L (6.5-8.0) g/dL Albumin 3.9 (3.5-5.0) g/dL <Morris Bentley MD - Last Filed: 12/02/20 13:44> Imaging Data Chest x-ray: Attestation: I personally reviewed and interpreted this imaging study as follows: <Candace Charles NP - Last Filed: 11/30/20 19:44> Radiologist's impression: [address] [id number] ReportSigned Patient: Whitney GonzalezMR#: [id number]: [id number]:[id number]/Sex: 50 / FADM Date: 11/30/20Loc: HO.EDAttending Dr: Ordering Physician: CANDACE CHARLES NP Date of Service: 11/30/20 Procedure(s): XR chest 1V Accession Number(s): [id number] cc: CANDACE CHARLES NP~ EXAMINATION: XR CHEST CLINICAL INFORMATION: Cough. Shortness of breath. COMPARISON: Previous chest x-ray March 2019 TECHNIQUE: Frontal view of the chest was obtained. FINDINGS: The cardiac and mediastinal contours are normal. The lungs are clear. There is no pleural effusion or pneumothorax. There are are degenerative changes of the spine and curvature to the right. XR/XR chest 1V IMPRESSION: No evidence for acute disease in the chest. <Candace Charles NP - Last Filed: 11/30/20 19:44> ECG Data Attestation: I personally reviewed and interpreted this ECG as follows: <Candace Charles NP - Last Filed: 11/30/20 19:44> ECG interpretation date: 11/30/20 <Candace Charles NP - Last Filed: 11/30/20 19:44> ECG interpretation time: 13:43 <Candace Charles NP - Last Filed: 11/30/20 19:44> Interpretation: Normal sinus rhythm with a rate of 86, normal TN, normal QRS, normal QTC <Candace Charles NP - Last Filed: 11/30/20 19:44> Discharge Plan Discharge Clinical Impression: Asthma exacerbation <Candace Charles NP - Last Filed: 11/30/20 19:44> Patient Disposition: Home, Self-Care <Candace Charles NP - Last Filed: 11/30/20 19:44> Instructions: Asthma (ED) <Candace Charles NP - Last Filed: 11/30/20 19:44> Additional Instructions: Start your prednisone tomorrow Increase fluids, rest Your blood work, EKG and chest x-ray were all unremarkable <Candace Charles NP - Last Filed: 11/30/20 19:44> Prescriptions: New prednisone 20 mg tablet 40 mg PO DAILY Qty: 8 RF: 0 albuterol sulfate 90 mcg/actuation aerosol powdr breath activated 2 inh inhalation Q4-6H PRN (Reason: shortness of breath or wheezing) Qty: 1 RF: 0 No Action fluticasone propionate 50 mcg/actuation spray,suspension intranasal RF: 0 acetaminophen [Tylenol] 325 mg capsule 650 mg PO Q6H PRN (Reason: pain) Qty: 30 RF: 0 acetaminophen [Tylenol Extra Strength] 500 mg tablet 500 mg PO Q6H PRN (Reason: pain or fever) Qty: 20 RF: 0 lidocaine [Lidoderm] 5 % adhesive patch,medicated 1 patch topical DAILY MDD remove after 12 hours PRN (Reason: pain) Qty: 30 RF: 0 tizanidine 2 mg tablet 2 mg PO BID PRN (Reason: muscle spasticity) 15 Days Qty: 30 RF: 0 diclofenac sodium 75 mg tablet,delayed release (DR/EC) 75 mg PO BID PRN (Reason: pain) 30 Days Qty: 60 RF: 0 esomeprazole magnesium [Nexium] 20 mg capsule,delayed release(DR/EC) 20 mg PO BID 30 Days Qty: 60 RF: 4 <Candace Charles NP - Last Filed: 11/30/20 19:44> Referrals: Nathan Hudson, [facility] [Primary Care Provider] - 2 days <Candace Charles NP - Last Filed: 11/30/20 19:44> Stand Alone Forms: Work/School Release <Candace Charles NP - Last Filed: 11/30/20 19:44> Interventions: ED Discharge Assessment Last Done: 11/30/20 16:48 <Candace Charles NP - Last Filed: 11/30/20 19:44> Discharge Date/Time: 11/30/20 16:49 <Candace Charles NP - Last Filed: 11/30/20 19:44>
[2020-11-30] MEDS: Albuterol/Iprat 2.5/0.5MG 3 ML AMPUL.NEB INHALE (14:01)
[2020-11-30 14:02] VITALS: PULSE 88; O2SAT 97
[2020-11-30 14:03] LABS: MANUAL DIFF FLAG NO
[2020-11-30 14:04] LABS: Basophils Percent Auto 0.4 % (0-2); Eosinophils Absolute Auto 0.2 X10*3/uL (0.0-0.4); Eosinophils Percent Auto 2.4 % (0-4); Hematocrit 36.2 % (37-47); Hemoglobin 11.6 g/dl (12.0-16.0); Imm Gran Abs Auto 0.05 X10*3/uL (0.00-0.03); Imm Gran Pct Auto 0.5 % (0.0-0.4); Lymphocytes Absolute Auto 1.7 X10*3/uL (1.2-4.9); Lymphocytes Percent Auto 18.7 % (20-40); Mean Corpuscular Hemoglobin 27.6 pg (27.0-33.0); Mean Platelet Volume 10.5 fL (9.4-12.3); Monocytes Absolute Auto 0.9 X10*3/uL (0.1-1.2); Monocytes Percent Auto 9.1 % (2-11); Neutrophils Absolute Auto 6.4 X10*3/uL (2.0-8.3); Neutrophils Percent Auto 68.9 % (45-73); Platelet Count 254 X10*3/uL (160-400); Red Blood Count 4.21 X10*6/uL (4.20-5.50); Red Cell Distribution Width 14.9 % (11.0-16.0); White Blood Count 9.3 X10*3/uL (4.8-10.8)
[2020-11-30] MEDS: Magnesium Sulfate/H2O 2 GM/50 ML PIGGYBACK IV (14:10)
[2020-11-30] MEDS: methylPREDNISolone Sod Succ 125 MG/2 ML VIAL IVPUSH (14:10)
[2020-11-30 14:38] LABS: Troponin-I High Sensitivity < 3.5 ng/L (<3.5-17.0)
[2020-11-30 14:47] VITALS: BP 141/88; PULSE 87; RESP 16; TEMP 36.7; O2SAT 97
[2020-11-30 15:12] LABS: INTERNATIONAL NORM RATIO 1.2 (0.9-1.1); Prothrombin Time 13.7 SEC (10.8-13.0)
[2020-11-30 15:17] LABS: D Dimer < 200 NG/ML
[2020-11-30 15:40] LABS: Alanine Aminotransferase 10 U/L (0-31); Albumin Level 3.9 g/dL (3.5-5.0); Alkaline Phosphatase 59 U/L (39-117); Anion Gap 9 (12-20); Aspartate Amino Transferase 12 U/L (5-31); Bilirubin Direct < 0.2 mg/dL (0.0-0.5); Bilirubin Total 0.5 mg/dL (0.0-1.0); Blood Urea Nitrogen 14 mg/dL (9-16); Carbon Dioxide 26 mmol/L (22-29); Chloride 109 mmol/L (96-108); Estimated Glomerular Filt Rate > 60; Glucose Random 124 mg/dL (60-115); Magnesium 2.8 mg/dL (1.6-2.6); Potassium 3.6 mmol/L (3.3-5.1); Sodium 140 mmol/L (135-145); Total Protein 6.3 g/dL (6.5-8.0)
== END 2020-11-30 16:49 | disposition home or self-care (01) ==
PROVIDERS: Nurse Practitioner Family; Emergency Provider Emergency Medicine; PCP Nurse Practitioner Family
DX: J45.901 Unspecified asthma with (acute) exacerbation (principal); R06.02 Shortness of breath; R05 Cough; F17.210 Nicotine dependence, cigarettes, uncomplicated; Z79.899 Other long term (current) drug therapy; Z86.16 Personal history of COVID-19; Z71.6 Tobacco abuse counseling
CPT/HCPCS: 36415; 71045; 80048; 80076; 83735; 84484; 85025; 85379; 85610; 93005; 94640; 96365; 96375; 99285; J2930; J3475

== ENCOUNTER 2020-12-06 19:09 | Emergency (ER) | payer OTHER, SELFPAY ==
--- NOTE | ~2020-12-06 | CT_ITS ---
EXAMINATION: CT ANGIOGRAM OF THE CHEST WITH AND WITHOUT CONTRAST (CT PULMONARY ANGIOGRAM FOR PE) CLINICAL INFORMATION: Reason for Exam covid positivesince 10/14 COMPARISON: None TECHNIQUE: Prior to contrast administration, noncontrast localization images were obtained. Subsequently, multidetector volumetric imaging was performed from the thoracic inlet to below the diaphragms following the administration of 65 mL Omnipaque 350 intravenous contrast. No contrast reaction reported Sagittal, coronal, and MIP oblique sagittal reformatted images were obtained on the CT workstation, uploaded to PACS, and reviewed. This CT examination was performed using dose optimization techniques as appropriate, variously including the following: *Automated exposure control *Adjustment of mA and/or kV according to patient size (this includes techniques or standardized protocols for targeted exams where dose is matched to indication/reason for exam; i.e. extremities or head) *Use of iterative reconstruction technique Total exam dose-length product 324 mGy-cm FINDINGS: QUALITY OF STUDY/CONTRAST BOLUS: Satisfactory. PULMONARY ARTERIES: No central or segmental pulmonary emboli. THORACIC AORTA: No aneurysm or dissection. LUNG: Mild streaky left lower lobe opacity favors atelectasis. There is minimal dependent atelectasis in the lower lobes. PLEURA: No pleural effusion or pneumothorax. MEDIASTINUM: The visualized thyroid gland is unremarkable. There are subcentimeter mediastinal lymph nodes within the range of normal variation. Cardiac size is within normal limits; no pericardial effusion. No evidence of septal bowing or right heart strain. CHEST WALL/AXILLA: No axillary or internal mammary lymphadenopathy. OSSEOUS STRUCTURES: Scattered endplate osteophytes are noted in the spine. UPPER ABDOMEN: Unremarkable. No reflux of contrast into the hepatic veins to suggest elevated right heart pressures. CT/CT angio chest PE protocol IMPRESSION: No pulmonary embolus identified. VTE: negative
--- NOTE | ~2020-12-06 | XR_ITS ---
EXAMINATION: XR CHEST CLINICAL INFORMATION: Shortness of breath COMPARISON: 11/30/2020 TECHNIQUE: Frontal view of the chest was obtained. FINDINGS: No significant abnormality is noted involving the heart, lungs, mediastinum, bony thorax or soft tissues. XR/XR chest 1V IMPRESSION: Unremarkable examination.
[2020-12-06 19:35] VITALS: BP 130/77; PULSE 96; RESP 24; TEMP 36.6; O2SAT 98; BMI 31.1
--- NOTE | 2020-12-06 20:39 | ED.ASTHMA ---
HPI - Asthma General Chief Complaint: Asthma Stated Complaint: SOB/asthma Time Seen by Provider: 12/06/20 20:35 Source: patient Mode of arrival: ambulatory Limitations: no limitations History of Present Illness HPI Narrative: Patient with history of asthma smoker been short of breath for last 1 week got worse last night after cleaning her closet using inhaler at home without much response came here wheezing saturating 98% at room air no fever or chills no one at home is COVID patient had COVID in 10/14 patient was seen here on 11/30 was given inhaler and prednisone course which she finished complaint: shortness of breath Related Data Previous Rx's Medication Instructions Recorded esomeprazole magnesium 20 mg 20 mg PO BID 30 Days #60 cap 04/20/20 capsule,delayed release albuterol sulfate 2 inh INHALATION Q4-6H PRN #1 ea 11/30/20 albuterol sulfate [Proventil HFA] 2 puff INHALATION Q4-6H PRN #8.5 g 12/07/20 codeine-guaifenesin 10 ml PO Q4-6H PRN #237 ml 12/07/20 prednisone 40 mg PO DAILY #10 tab 12/07/20 Allergies Allergy/AdvReac Type Severity Reaction Status Date / Time penicillin V Allergy Unknown rash, hives Verified 11/24/20 13:20 Penicillins [PENICILLINS] Allergy Unknown RASH Verified 11/24/20 13:20 [facility] Past Medical History Medical History Anemia Arthritis, hip Asthma Chronic constipation LUCI I (cervical intraepithelial neoplasia I) GERD (gastroesophageal reflux disease) Hiatal hernia Mesenteric panniculitis Migraine Uterine fibroid Surgical History History of appendectomy History of bilateral tubal ligation History of colonoscopy History of removal of ovarian cyst Hx of endoscopy Family History Family History Father Diabetes mellitus History of colon cancer Mother Cervical cancer Diabetes mellitus Maternal Aunt Cervical cancer Lung cancer Son No problems noted. Son No problems noted. Son No problems noted. Daughter No problems noted. Social History Social History Are you a primary transitional care nurse to a significant other at home: No Do you presently have visiting nurse or other home services: No Alcohol intake: never Patient Tobacco Use Status: Never used Tobacco Cigarette Packs Per Day: 0.5 Cigarettes Per Day: 10.0 Years Smoked: 30 Advance Directives: No Patient : No Sexual orientation: Straight/Heterosexual Gender identity: female Physical Exam Vital Signs: Vital Signs: Last Vital Signs Temp 98 F 12/06/20 19:35 Pulse 100 12/07/20 00:00 Resp 21 H 12/07/20 00:00 BP 138/65 12/07/20 00:00 Pulse Ox 96 12/07/20 00:00 Body Mass Index 31.1 Appearance: Alert. Oriented X3. Mild respiratory distress coughing Eyes: PERRLA, No Nystagmus ENT: Pharynx normal. Oral Mucosa moist Neck: Normal inspection. Neck supple. CVS: Normal heart rate and rhythm. Pulses normal. Respiratory: Mild respiratory distress. Equal air entry bilateral, bilateral audible wheezing Abdomen: Soft and nontender. Bowel sounds are present, no mass palpable, no CVA tenderness Skin: Skin warm and dry. Normal skin color. Normal skin turgor. Extremities: No lower extremity edema. No calf tenderness Neuro: Oriented X 3. No motor deficit. No sensory deficit. MDM - Asthma MDM Narrative Medical decision making narrative: Patient is still wheezing received 2 hour long nebulizing treatment repeat COVID test came positive chest x-ray negative for any infiltrate will do CTA chest. Cta chest negative for PE will discharge patient home on another course of prednisone and Zithromax patient is saturating 96% on room air Lab Data Attestation: I reviewed the patient's lab results. Labs: Lab Results 12/06/20 12/06/20 12/06/20 Range/Units 20:59 20:59 22:39 Hold Purple Top SEE NOTE Hold Yellow Top See Note COVID-19 (CHRISTY) Positive A (Negative) COVID-19 Clin Com See Note Discharge Plan Discharge Clinical Impression: COVID-19 Asthma with acute exacerbation Qualifiers: Asthma severity: moderate Asthma persistence: persistent Qualified Code(s): J45.41 - Moderate persistent asthma with (acute) exacerbation Patient Disposition: Home, Self-Care Instructions: Asthma (ED), COVID-19 (Coronavirus Disease 2019) (ED) Additional Instructions: Continue inhaler take prednisone course as advised Antibiotic as advised Report to ER if increased shortness of breath Prescriptions: New prednisone 20 mg tablet 40 mg PO DAILY Qty: 10 RF: 0 codeine-guaifenesin 10-100 mg/5 mL liquid 10 ml PO Q4-6H PRN (Reason: cough) Qty: 237 RF: 0 albuterol sulfate [Proventil HFA] 90 mcg/actuation HFA aerosol inhaler 2 puff inhalation Q4-6H PRN (Reason: shortness of breath or wheezing) Qty: 8.5 RF: 0 No Action albuterol sulfate 90 mcg/actuation aerosol powdr breath activated 2 inh inhalation Q4-6H PRN (Reason: shortness of breath or wheezing) Qty: 1 RF: 0 esomeprazole magnesium [Nexium] 20 mg capsule,delayed release(DR/EC) 20 mg PO BID 30 Days Qty: 60 RF: 4
[2020-12-06] MEDS: Albuterol Sulfate (0.083%) 2.5 MG/3 ML VIAL.NEB 5 MG INHALE ×2 (20:41→22:55)
[2020-12-06 20:42] VITALS: PULSE 89; O2SAT 96
[2020-12-06] MEDS: Albuterol/Iprat 2.5/0.5MG 3 ML AMPUL.NEB INHALE (20:42)
[2020-12-06] MEDS: methylPREDNISolone Sod Succ 125 MG/2 ML VIAL IVPUSH (20:50)
[2020-12-06] MEDS: Magnesium Sulfate/H2O 2 GM/50 ML PIGGYBACK IV (20:50)
[2020-12-06 21:18] VITALS: BP 142/77; PULSE 78; RESP 20; O2SAT 95
[2020-12-06 21:37] VITALS: PULSE 77; O2SAT 97
[2020-12-06] MEDS: Albuterol Sulfate (0.083%) 2.5 MG/3 ML VIAL.NEB 7.5 MG INHALE (21:37)
--- NOTE | 2020-12-06 22:24 | PC.NURSE ---
PT FINISHED UDN. LUNGS MOVING MORE AIR. STILL WHEEZY THROUGHOUT. NOT TIGHT.
[2020-12-06 22:53] LABS: COVID-19 Test Positive (Negative)
[2020-12-06 22:55] VITALS: PULSE 93; O2SAT 99
[2020-12-07] VITALS: BP 138/65; PULSE 100; RESP 21; O2SAT 96
[2020-12-07] MEDS: iohexoL 350 MG/ML 100 ML INFUS..BTL 65 ML IV (00:50)
[2020-12-07 01:30] VITALS: PULSE 101; O2SAT 95
[2020-12-07] MEDS: Albuterol Sulfate (0.083%) 2.5 MG/3 ML VIAL.NEB 5 MG INHALE (01:30)
[2020-12-07] MEDS: Azithromycin 500 MG TABLET PO (02:05)
[2020-12-07] MEDS: guaiFEN/Codeine SF 200/20/10ML 10 ML LIQUID PO (02:05)
== END 2020-12-07 02:07 | disposition home or self-care (01) ==
PROVIDERS: Emergency Provider Internal Medicine; PCP Nurse Practitioner Family
DX: U07.1 COVID-19 (principal); J45.41 Moderate persistent asthma with (acute) exacerbation; Z79.899 Other long term (current) drug therapy
CPT/HCPCS: 36415; 71045; 71275; 87635; 94640; 94644; 94645; 96365; 96375; 99284; 99285; J2930; J3475; Q9967

== ENCOUNTER 2021-02-12 10:40 | Outpatient (REF) | payer OTHER, SELFPAY ==
--- NOTE | 2021-02-12 | PFT_ITS ---
INDICATION: Asthma. SPIROMETRY: The FEV1 to FVC of 79% with an FEV1 of 2.28 L which is 78% predicted, and an FVC of 2.89 L, which is 80% predicted. No significant response to bronchodilators noted. Maximum voluntary ventilation 98% predicted. LUNG VOLUMES: Total lung capacity 86% predicted with an expiratory reserve volume of 32% predicted secondary to an elevated BMI. DIFFUSION CAPACITY: DLCO of 74% predicted. COMPARISONS: None available. INTERPRETATION: There is no obstructive nor restrictive ventilatory defects identified. No significant response to bronchodilators noted. There is some minimal degree of small airways disease, which could be appreciated with asthma and sometimes with the increased body habitus. Lung volumes are within normal limits except for decrease in the expiratory reserve volume secondary to an elevated BMI. The patient does have a mild diffusion impairment. Need to correct for hemoglobin, also corrects to normal when correcting for the alveolar volume. If asthma is in the differential, methacholine challenge may be helpful in assessing for hyper-reactive airways, otherwise clinical correlation is warranted. MD MELINA Pro/HIRA / [id number]
== END 2021-02-12 10:41 | disposition home or self-care (01) ==
LOC: HO.RESP 10:40
PROVIDERS: PCP Nurse Practitioner Family; Visit Provider Nurse Practitioner Family
DX: J45.901 Unspecified asthma with (acute) exacerbation (principal)
CPT/HCPCS: 94060; 94727; 94729

== ENCOUNTER → 2021-02-15 09:54 | Outpatient (BNVA) | payer OTHER, SELFPAY | PROVIDERS: PCP Nurse Practitioner Family; Visit Provider Hospitalist | DX: J45.909 Unspecified asthma, uncomplicated (principal); B94.8 Sequelae of other specified infectious and parasitic diseases; J98.11 Atelectasis; F17.200 Nicotine dependence, unspecified, uncomplicated | CPT/HCPCS: 99212 ==

== ENCOUNTER 2021-02-19 10:07 | Outpatient (REF) | payer OTHER, SELFPAY ==
[2021-02-22 14:17] LABS: TS Negative Control Passed; TS Panel A 0; TS Panel B 0; TS Positive Control Passed; TSpotTB Negative (SeeBelow)
== END 2021-02-19 10:08 | disposition home or self-care (01) ==
LOC: HO.HMGCLDS 10:07
PROVIDERS: PCP Nurse Practitioner Family; Visit Provider Nurse Practitioner Family
DX: Z11.1 Encounter for screening for respiratory tuberculosis (principal)
CPT/HCPCS: 36415; 86481

== ENCOUNTER 2021-03-08 10:07 | Outpatient (REF) | payer OTHER, SELFPAY ==
--- NOTE | 2021-03-08 | PFT_ITS ---
FLOWS: FEV1 93% of predicted at 2.71 L. FVC 92% of predicted at 3.33 L. FEV1 to FVC ratio of 0.81. No bronchodilator response. LUNG VOLUMES: Total lung capacity 92% of predicted at 4.87 L. Residual volume 85% of predicted at 1.62 L. Slow vital capacity 95% of predicted at 3.5 L. Expiratory reserve volume 58% of predicted at 0.63 L. Diffusion capacity is mildly decreased. In comparison to pulmonary function test form January 2021, FEV1 has increased by 0.43 L; FVC has increased by 0.44 L; total lung capacity has increased by 0.30 L; residual volume has been without significant changes; slow vital capacity has increased by 0.33 L; expiratory reserve volume has increased by 0.27 L; diffusion capacity has decreased by 1.001 mm/minute per mmHg. IMPRESSION: No obstructive or restrictive ventilatory defect. No bronchodilator response. Decreased expiratory reserve volume suggests extrathoracic restriction likely secondary to abdominal obesity. Decreased diffusion capacity suggests emphysema. MD MARISSA Menon/MODL / [id number]
== END 2021-03-08 10:08 | disposition home or self-care (01) ==
LOC: HO.RESP 10:07
PROVIDERS: PCP Nurse Practitioner Family; Visit Provider Hospitalist
DX: J45.901 Unspecified asthma with (acute) exacerbation (principal)
CPT/HCPCS: 94060; 94727; 94729

== ENCOUNTER → 2021-05-24 15:24 | Outpatient (BNVA) | payer OTHER, SELFPAY | PROVIDERS: PCP Nurse Practitioner Family; Visit Provider Hospitalist ==

== ENCOUNTER → 2021-07-01 14:47 | Outpatient (BNVA) | payer OTHER, SELFPAY | PROVIDERS: PCP Nurse Practitioner Family; Referring Provider Nurse Practitioner Family; Visit Provider Internal Medicine Gastroenterology | DX: D64.9 Anemia, unspecified (principal); K21.9 Gastro-esophageal reflux disease without esophagitis; K59.09 Other constipation; Z80.0 Family history of malignant neoplasm of digestive organs | CPT/HCPCS: 99212 ==

== ENCOUNTER 2021-07-22 14:53 | Outpatient (REF) | payer OTHER, SELFPAY ==
[2021-07-26 19:46] LABS: HPV mRNA E6/E7 rflx Not Detected (Not Detected)
== END 2021-07-22 14:54 | disposition home or self-care (01) ==
LOC: HO.LAB 14:53
PROVIDERS: PCP Nurse Practitioner Family; Visit Provider Obstetrics & Gynecology
DX: Z01.419 Encounter for gynecological examination (general) (routine) without abnormal findings (principal); Z11.51 Encounter for screening for human papillomavirus (HPV)
CPT/HCPCS: 87624; 88142

== ENCOUNTER 2021-08-10 06:16 | Outpatient (REF) | payer OTHER, SELFPAY ==
[2021-08-10 06:35] LABS: MANUAL DIFF FLAG NO
[2021-08-10 07:31] LABS: Basophils Absolute Auto 0.1 X10*3/uL (0.0-0.2); Basophils Percent Auto 0.7 % (0-2); Eosinophils Absolute Auto 0.2 X10*3/uL (0.0-0.4); Eosinophils Percent Auto 2.5 % (0-4); Hematocrit 39.1 % (37.0-47.0); Hemoglobin 12.5 g/dl (12.0-16.0); Imm Gran Abs Auto 0.04 X10*3/uL (0.00-0.03); Imm Gran Pct Auto 0.5 % (0.0-0.4); Lymphocytes Absolute Auto 2.7 X10*3/uL (1.2-4.9); Lymphocytes Percent Auto 35.4 % (20-40); Mean Corpuscular Volume 87.7 fL (80.0-98.0); Mean Platelet Volume 10.6 fL (9.4-12.3); Monocytes Absolute Auto 0.7 X10*3/uL (0.1-1.2); Monocytes Percent Auto 9.2 % (2-11); Neutrophils Absolute Auto 3.9 x10*3/uL (2.0-8.3); Neutrophils Percent Auto 51.7 % (45-73); Platelet Count 258 X10*3/uL (160-400); Red Blood Count 4.46 X10*6/uL (4.20-5.50); Red Cell Distribution Width 13.8 % (11.0-16.0); White Blood Count 7.6 X10*3/uL (4.8-10.8)
[2021-08-10 07:54] LABS: Alanine Aminotransferase 16 U/L (0-31); Albumin Level 4.2 g/dL (3.5-5.0); Alkaline Phosphatase 57 U/L (39-117); Anion Gap 11 (12-20); Aspartate Amino Transferase 16 U/L (5-31); Bilirubin Total 0.5 mg/dL (0.0-1.0); Blood Urea Nitrogen 13 mg/dL (9-16); Calcium 9.2 mg/dL (8.4-10.2); Carbon Dioxide 27 mmol/L (22-29); Chloride 106 mmol/L (96-108); Cholesterol 154 mg/dL; Estimated Glomerular Filt Rate > 60; Glucose Fasting 94 mg/dL (60-99); HDL Cholesterol 43 mg/dL; LDL Cholesterol Calculated 87 mg/dl; Potassium 4.3 mmol/L (3.3-5.1); Sodium 140 mmol/L (135-145); Triglycerides 121 mg/dL
[2021-08-10 08:13] LABS: Appearance Urine CLEAR; Color Urine YELLOW; Glucose Urine UA NEG (NEG); Leukocyte Esterase Urine NEG (NEG); Nitrite Urine NEG (NEG); Specific Gravity - Urine >= 1.030 (1.005-1.025); Urine Blood NEG (NEG); Urine Ketones NEG (NEG); Urine Protein NEG (NEG-TRACE)
[2021-08-10 08:17] LABS: TSH reflex Free T4 0.66 uIU/mL (0.32-4.0)
[2021-08-10 08:20] LABS: Ferritin 14 ng/mL (10-250)
[2021-08-10 08:29] LABS: Folate 7.3 ng/mL (> or = 4.0); Vitamin B12 331 pg/mL (200-900)
== END 2021-08-10 06:17 | disposition home or self-care (01) ==
LOC: HO.LAB 06:16
PROVIDERS: Internal Medicine Gastroenterology; PCP Nurse Practitioner Family; Visit Provider Nurse Practitioner Family
DX: Z00.00 Encounter for general adult medical examination without abnormal findings (principal); K21.9 Gastro-esophageal reflux disease without esophagitis; D64.9 Anemia, unspecified
CPT/HCPCS: 36415; 80053; 80061; 81003; 82306; 82607; 82728; 82746; 84443; 85025

== ENCOUNTER → 2021-12-02 11:37 | Outpatient (BNVA) | payer OTHER, SELFPAY | PROVIDERS: PCP Nurse Practitioner Family; Referring Provider Nurse Practitioner Family; Visit Provider Internal Medicine Gastroenterology | DX: K21.9 Gastro-esophageal reflux disease without esophagitis (principal); D64.9 Anemia, unspecified; K59.09 Other constipation; Z80.0 Family history of malignant neoplasm of digestive organs | CPT/HCPCS: 99212 ==

== ENCOUNTER 2022-05-06 15:10 | Outpatient (REF) | payer OTHER, SELFPAY ==
--- NOTE | ~2022-05-06 | CT_ITS ---
EXAMINATION: CT CHEST SCREENING CLINICAL INFORMATION: Current smoker. 35 pack year history. COMPARISON: Previous chest CTA November 2020 TECHNIQUE: Multidetector volumetric CT imaging of the chest is performed without contrast using low dose technique. Additional 2D coronal and sagittal reformatted images and axial 3D maximum intensity projection (MIP) images are generated on the CT workstation. This CT examination was performed using dose optimization techniques as appropriate, variously including the following: *Automated exposure control *Adjustment of mA and/or kV according to patient size (this includes techniques or standardized protocols for targeted exams where dose is matched to indication/reason for exam; i.e. extremities or head) *Use of iterative reconstruction technique DLP: 60 mGy-cm FINDINGS: LUNGS: The lungs are clear with no evidence of inflammation or nodules. MEDIASTINUM: The mediastinum is normal. CORONARY ARTERY CALCIFICATION: None visualized on this study. PLEURA: There is no pleural effusion. No pleural mass or thickening. AXILLA: No lymphadenopathy. UPPER ABDOMEN: Unremarkable OSSEOUS STRUCTURES: Unremarkable. CT/CT lung screening IMPRESSION: Unremarkable examination. ASSESSMENT: Lung-RADS category 1: Negative RECOMMENDATION: Annual low-dose chest CT follow-up recommended.
== END 2022-05-06 15:11 | disposition home or self-care (01) ==
LOC: HO.CT 15:10
PROVIDERS: Visit Provider Physician Assistant Medical
DX: Z12.2 Encounter for screening for malignant neoplasm of respiratory organs (principal); F17.210 Nicotine dependence, cigarettes, uncomplicated
CPT/HCPCS: 71271

== ENCOUNTER → 2022-06-10 14:20 | Outpatient (BNVA) | payer OTHER, SELFPAY | PROVIDERS: PCP Nurse Practitioner Family; Visit Provider Physician Assistant Medical | DX: F17.210 Nicotine dependence, cigarettes, uncomplicated (principal) | CPT/HCPCS: G0296 ==

== ENCOUNTER → 2022-07-27 14:49 | Outpatient (BNVA) | payer OTHER, SELFPAY | PROVIDERS: PCP Nurse Practitioner Family; Visit Provider Obstetrics & Gynecology | DX: Z13.89 Encounter for screening for other disorder (principal) ==

== ENCOUNTER 2022-08-23 13:50 | Outpatient (REF) | payer OTHER, SELFPAY ==
--- NOTE | ~2022-08-23 | MM_ITS ---
EXAMINATION: MM SCREENING DIGITAL BREAST TOMOSYNTHESIS, BILATERAL CLINICAL INFORMATION: Screening. Asymptomatic. The lifetime risk of breast cancer based on the Tyrer-Cuzick Model is 5.9%. COMPARISON: Mammography: 02/22/2019 and 08/16/2016. TECHNIQUE: Digital breast tomosynthesis is performed in both the craniocaudal and mediolateral oblique views along with computer-aided detection (CAD). Synthesized 2-D images are generated from the tomosynthesis. FINDINGS: The breasts are heterogeneously dense, which may obscure small masses (ACR BI-RADS breast composition Category c). About the inferior aspect of the right breast, there is a circumscribed 8 x 6 mm density for which spot compression view and ultrasound is recommended. There is also a grouping of calcifications about the upper aspect of the right breast for which spot magnification views in craniocaudal and mediolateral oblique projections are recommended. No significant left breast abnormality is appreciated. MM/MM tomosynthesis screening BI IMPRESSION: Right breast density superior aspect for further evaluation as described. Right breast calcifications for further evaluation. ASSESSMENT: BI-RADS 0: Incomplete - Need Additional Imaging Evaluation RECOMMENDATION: 1. Additional views of the right breast. 2. Targeted ultrasound if warranted after review of the additional views. 3. Radiology department staff will contact the patient for additional imaging. This patient's information was entered into a reminder system with a target due date for their next mammogram.
== END 2022-08-23 13:51 | disposition home or self-care (01) ==
LOC: HO.MAMMO 13:50
PROVIDERS: PCP Nurse Practitioner Family; Visit Provider Obstetrics & Gynecology
DX: Z12.31 Encounter for screening mammogram for malignant neoplasm of breast (principal)
CPT/HCPCS: 77063; 77067

== ENCOUNTER 2022-09-01 13:31 | Outpatient (REF) | payer OTHER, SELFPAY ==
--- NOTE | ~2022-09-01 | MM_ITS ---
EXAMINATION: MM DIAGNOSTIC DIGITAL BREAST TOMOSYNTHESIS, RIGHT US DIAGNOSTIC ULTRASOUND BREAST, RIGHT CLINICAL INFORMATION: Recall from screening for 2 findings, punctate calcifications mid 12:00 right breast and oval nodule 6:00 right breast anterior to mid depth. COMPARISON: Mammography: 08/23/2022, 02/22/2019 TECHNIQUE: Digital breast tomosynthesis is performed. 2D images are generated from the tomosynthesis. The following views are obtained: Magnification right CC, magnification right ML, spot right CC x2, spot right MLO. Ultrasound right breast is targeted to the lower breast using grayscale imaging and color Doppler without and with harmonics. FINDINGS: The breasts are heterogeneously dense, which may obscure small masses (ACR BI-RADS breast composition Category c). Breast tissue composition borders on average fibroglandular. Additional magnification views demonstrate a few very tightly grouped calcifications mid 12:00 position with a satellite focus of round calcifications slightly anteromedial. Calcifications have probable benign appearance and will be reassessed again in 6 months to include magnification views. The additional spot views confirm an oval nodule anterior mid 6:00 position. Margins are circumscribed. In retrospect, finding is stable from prior tomography 2019 consistent with a benign entity. Ultrasound lower right breast demonstrates a circumscribed smooth oval nodule 6:00 position 4 cm from nipple measuring under 1 cm. There is geographic internal intermediate echoes. There is mild increased through-transmission of sound. There is no internal or peripheral color flow. The nodule may represent either a fibroadenoma or a mildly complicated cyst with apocrine metaplasia. Given the stability over several years, the nodule is considered to be benign. Results are discussed with the patient at time of visit. MM/MM tomosynthesis added views R IMPRESSION: -Probable benign calcifications mid 12:00 right breast. -Circumscribed nodule 6:00 position anterior mid right breast, possibly fibroadenoma or apocrine metaplasia. There retrospect, finding is without significant change in size from mammography 2019 consistent with a benign nodule. ASSESSMENT: BI-RADS 3: Probably Benign RECOMMENDATION: Diagnostic right mammography with magnification views in 6 months. This patient's information was entered into a reminder system with a target due date for their next mammogram.
== END 2022-09-01 13:32 | disposition home or self-care (01) ==
LOC: HO.MAMMO 13:31
PROVIDERS: PCP Internal Medicine; Visit Provider Obstetrics & Gynecology
DX: R92.1 Mammographic calcification found on diagnostic imaging of breast (principal); R92.2 Inconclusive mammogram
CPT/HCPCS: 76642; 77061; 77065

== ENCOUNTER → 2022-10-03 14:26 | Outpatient (BNVA) | payer OTHER, SELFPAY | PROVIDERS: PCP Nurse Practitioner Family; Visit Provider Hospitalist | DX: J45.40 Moderate persistent asthma, uncomplicated (principal); J98.11 Atelectasis; F17.210 Nicotine dependence, cigarettes, uncomplicated | CPT/HCPCS: 99212 ==

== ENCOUNTER 2022-11-14 07:06 | Outpatient (REF) | payer OTHER, SELFPAY ==
--- NOTE | ~2022-11-14 | XR_ITS ---
EXAMINATION: XR HIP, RIGHT CLINICAL INFORMATION: Right hip pain COMPARISON: Right hip x-rays of 08/27/2019. Selected images of the abdomen and pelvic CT scan of 06/20/2019. TECHNIQUE: Two views of the right hip. 1 view of the pelvis. FINDINGS: Femoral heads are well-seated in their respective acetabula. Probable mild narrowing of the bilateral hip joint spaces. There is no evidence of subarticular sclerosis or cystic changes. No significant marginal osteophytic changes are noted. The sclerosis is noted along the pubic symphysis suggesting osteitis pubis. Normal osseous mineralization. There is no evidence of acute fracture or dislocation. No suspicious osseous lesion is noted. Note is made of minimal leftward curvature of the visualized lumbar spine with suspected mild changes of facet arthropathy at L5-S1. Small 0.7 cm calcification is noted at the superior margin of the left greater trochanter. XR/XR hip RT w PEL1V IMPRESSION: Likely mild narrowing of the bilateral hip joint spaces with associated mild degenerative changes. A small calcification at the superior margin of the greater trochanter on the left is nonspecific however may suggest changes of calcific bursitis or tendinitis. No acute osseous abnormality in the pelvis and right hip. Mild facet arthropathy at L5-S1 is suspected.
== END 2022-11-14 07:07 | disposition home or self-care (01) ==
LOC: HO.HOSX 07:06
PROVIDERS: Visit Provider Physician Assistant
DX: M25.551 Pain in right hip (principal); G57.01 Lesion of sciatic nerve, right lower limb; Z87.81 Personal history of (healed) traumatic fracture
CPT/HCPCS: 73502; 99202

== ENCOUNTER → 2022-12-07 09:01 | Outpatient (BNVA) | payer OTHER, SELFPAY | PROVIDERS: PCP Nurse Practitioner Family; Visit Provider Registered Nurse Emergency | DX: M53.3 Sacrococcygeal disorders, not elsewhere classified (principal); M47.816 Spondylosis without myelopathy or radiculopathy, lumbar region | CPT/HCPCS: 99202 ==

== ENCOUNTER → 2022-12-22 11:34 | Outpatient (BNVA) | payer OTHER, SELFPAY | PROVIDERS: PCP Nurse Practitioner Family; Visit Provider Internal Medicine Gastroenterology | DX: K21.9 Gastro-esophageal reflux disease without esophagitis (principal); K59.09 Other constipation; R10.10 Upper abdominal pain, unspecified; D12.6 Benign neoplasm of colon, unspecified; D64.9 Anemia, unspecified | CPT/HCPCS: 99212 ==

== ENCOUNTER 2023-01-10 06:06 | Outpatient (REF) | payer OTHER, SELFPAY ==
--- NOTE | ~2023-01-10 | FL_ITS ---
EXAMINATION: XR FLUOROSCOPY WITH IMAGES CLINICAL INFORMATION: Sacrococcygeal disorders, not elsewhere classified. COMPARISON: None available. TECHNIQUE: Fluoroscopy Supervised By: Dr. Clifton Hall. Fluoroscopy Time: 0.1 minute. Cumulative Dose: 1.13 mGy. DAP: 0.0196 Gycm2. Images: 2. FINDINGS: Images demonstrate needle placement and contrast injection of the right sacroiliac joint FL/FL guidance in treatment room IMPRESSION: Fluoroscopic guidance for right sacroiliac joint injection.
== END 2023-01-10 06:07 | disposition home or self-care (01) ==
LOC: CF 06:06
PROVIDERS: Visit Provider Anesthesiology
DX: M53.3 Sacrococcygeal disorders, not elsewhere classified (principal); M47.816 Spondylosis without myelopathy or radiculopathy, lumbar region
CPT/HCPCS: 27096; J2795; J3301

== ENCOUNTER 2023-01-10 09:33 | Outpatient (AMB) | payer OTHER, SELFPAY ==
[2023-01-10 09:49] VITALS: BP 118/76; PULSE 73; RESP 16; O2SAT 99; BMI 29.3
--- NOTE | 2023-01-10 09:49 | MHC.OFFVIS ---
Intake Vital Signs 01/10/23 09:49 01/10/23 11:37 Height 5 ft 5 in 5 ft 5 in Weight 176 lb 176 lb BMI 29.3 29.3 BP 118/76 134/82 Blood Pressure Location Lt brachial Rt brachial Position Sitting Sitting Respiration 16 14 Pulse 73 62 Pulse Source Pulse Oximeter Pulse Oximeter Pulse Oximetry (%) 99 98 Oxygen Delivery Method Room Air Room Air Comment Pre-op Post-op Intake Visit Reasons: RIGHT THERAPEUTIC SIJ INJECTION Allergies Penicillins [PENICILLINS] Allergy (Severe, Verified 01/10/23 09:49) RASH [facility] Medical History (Reviewed 12/07/22 @ 10:17 by Kelly León, HANDBAG PARTS CUTTER, BEHAVIOR SUPPORT SPECIALIST) Anemia Arthritis, hip Asthma Atelectasis Chronic constipation LUCI I (cervical intraepithelial neoplasia I) (~2017) Family history of colon cancer GERD (gastroesophageal reflux disease) Hiatal hernia Mesenteric panniculitis Migraine 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 Son No problems noted. Son No problems noted. Daughter No problems noted. Social History Household Members: Significant Other and Children Housing: House Are you a primary healthcare project manager to a significant other at home: No Do you presently have visiting nurse or other home services: No Alcohol intake: former Patient Tobacco Use Status: Current everyday Tobacco user Tobacco use type: Cigarette Cigarette Packs Per Day: 0.5 Cigarettes Per Day: 4 Years Smoked: 30 e-Cigarette/Vaping Use: Never Used Second Hand Smoke Exposure: No Current occupational status: employed Current occupation: [email or web address] Sexual orientation: Straight/Heterosexual Gender identity: Female Cognitive needs: No Hearing needs: No Vision needs: Yes Female Reproductive History Menstrual Age of Menarche: 12 Physical Exam Vital Signs: Last Vital Signs Pulse 62 01/10/23 11:37 Resp 14 01/10/23 11:37 BP 134/82 01/10/23 11:37 Pulse Ox 98 01/10/23 11:37 Oxygen Delivery Method Room Air 01/10/23 11:37 BMI result Body Mass Index 29.3 Assessment & Plan Assessment & Plan (1) Sacroiliac joint pain: Code(s): M53.3 - Sacrococcygeal disorders, not elsewhere classified Plan: Right therapeutic sacroiliac joint injection Informed consent was explained thoroughly to the patient. All questions about benefits and risks for the procedure were answered. Patient came to the operating room and was positioned prone on the operating table with the pillow under the pelvis. [place] [employer] monitors were applied and patient was deeply sedated. Time out was performed delineating name and of the patient, allergies and the nature of the procedure. The lower back and buttocks of the patient were prepped with ChloraPrep prepped and draped with sterile utility towels. C-arm was brought over the operating field and sq picture of patient's pelvis was demonstrated on the screen. For the right joint tilting C-arm contralateral to the site of the joint the most posterior portion of the joints was superimposed with anterior silhouette of the joint. Skin was injected in the projection of the joint slightly medial to the location of the joint with 25 gauge 1/2 inch needle using local lidocaine 2% .After that 22 gauge 3 and 1/2 inch needle was driven to the right joint in tunnel vision fashion. When needle entered the joint capsule injection of the contrast was performed demonstrating intra-articular and minimally periarticular spread of the contrast. After that 4 cc. of ropivacaine 0.5% mixed with kenalog 40 mg was injected into the joint. Upon completion of the injections the needle was removed Sterile dressing was applied. Upon completion of the injection patient was taken outside of the operating room to the recovery room where recovered uneventfully. (2) Lumbar facet arthropathy: Code(s): M47.816 - Spondylosis without myelopathy or radiculopathy, lumbar region Plan Whitney is a pleasant 52-year-old female who presented to the office today for evaluation and management of her chronic right lower back pain.? Patient has been suffering with this pain for greater than 15 years and has exhausted conservative treatment.? Patient's history and physical exam today most consistent with right sided sacroiliac joint dysfunction.? Patient with significant tenderness to palpation over distal right PSIS that she reports is consistent with her typical pain, provocative testing also positive for sacroiliac joint dysfunction. Will schedule patient for fluoroscopy guided right therapeutic sacroiliac joint injection with local anesthetic.? Advised patient if she receives adequate pain relief and this is something that could be repeated. Also discussed with patient the option for repeat injections, nerve stimulation, RFA or fusion in the future if warranted. Patient will continue HEP and physical therapy as planned. Continue with tylenol and NSAIDs as needed for the pain. All questions and concerns have been answered and patient agrees with the plan. Follow up after injections; sooner if needed. Orders: Orders FL guidance in treatment room 01/10/23 M53.3 - Sacrococcygeal disorders, not elsewhere classified Quality Reporting (2019) Adult ([facility] 138/08/17/68) Smoking risk assessment performed?: Yes Patient Tobacco Use Status: Current everyday Tobacco user Coding Level of Care Code Procedure Only Diagnoses Sacroiliac joint pain M53.3 Lumbar facet arthropathy M47.816
[2023-01-10 11:37] VITALS: BP 134/82; PULSE 62; RESP 14; O2SAT 98; BMI 29.3
== END 2023-01-10 11:12 | disposition home or self-care (01) ==
PROVIDERS: PCP Nurse Practitioner Family; Visit Provider Anesthesiology
DX: M53.3 Sacrococcygeal disorders, not elsewhere classified (principal); M47.816 Spondylosis without myelopathy or radiculopathy, lumbar region
CPT/HCPCS: 27096

== ENCOUNTER 2023-01-11 10:31 | Outpatient (REF) | payer OTHER, SELFPAY ==
[2023-01-11 13:03] LABS: MANUAL DIFF FLAG NO
[2023-01-11 13:33] LABS: Basophils Percent Auto 0.4 % (0-2); Eosinophils Percent Auto 0.4 % (0-4); Hematocrit 41.1 % (37.0-47.0); Hemoglobin 13.6 g/dl (12.0-16.0); Imm Gran Abs Auto 0.02 X10*3/uL (0.00-0.03); Imm Gran Pct Auto 0.2 % (0.0-0.4); Lymphocytes Absolute Auto 2.7 X10*3/uL (1.2-4.9); Lymphocytes Percent Auto 29.8 % (20-40); Mean Corpuscular HGB Conc 33.1 g/dl (31.0-35.0); Mean Corpuscular Hemoglobin 29.2 pg (27.0-33.0); Mean Corpuscular Volume 88.4 fL (80.0-98.0); Mean Platelet Volume 10.6 fL (9.4-12.3); Monocytes Absolute Auto 0.7 X10*3/uL (0.1-1.2); Monocytes Percent Auto 7.3 % (2-11); Neutrophils Absolute Auto 5.6 x10*3/uL (2.0-8.3); Neutrophils Percent Auto 61.9 % (45-73); Platelet Count 301 X10*3/uL (160-400); Red Blood Count 4.65 X10*6/uL (4.20-5.50); Red Cell Distribution Width 12.7 % (11.0-16.0)
[2023-01-11 14:09] LABS: Alanine Aminotransferase 16 U/L (0-31); Albumin Level 4.5 g/dL (3.5-5.0); Alkaline Phosphatase 67 U/L (39-117); Aspartate Amino Transferase 14 U/L (5-31); Bilirubin Total 0.6 mg/dL (0.0-1.0); Blood Urea Nitrogen 12 mg/dL (9-16); Calcium 10.4 mg/dL (8.4-10.2); Chloride 104 mmol/L (96-108); Cholesterol 201 mg/dL; Estimated Glomerular Filt Rate > 60; Glucose Fasting 100 mg/dL (60-99); HDL Cholesterol 57 mg/dL; Iron 105 mcg/dL (30-160); LDL Cholesterol Calculated 124 mg/dl; Lipase 15 U/L (8-78); Percent Iron Saturation 31 % (15-50); Potassium 3.9 mmol/L (3.3-5.1); Sodium 141 mmol/L (135-145); Total Iron Binding Capacity 343 mcg/dL (228-428); Total Protein 7.8 g/dL (6.5-8.0); Triglycerides 103 mg/dL; Unsaturated Iron Binding 238 ug/dL
[2023-01-11 14:11] LABS: TSH reflex Free T4 1.07 uIU/mL (0.32-4.0)
[2023-01-11 18:04] LABS: Carbon Dioxide 24 mmol/L (22-29)
== END 2023-01-11 10:32 | disposition home or self-care (01) ==
LOC: HO.HMGCLDS 10:31
PROVIDERS: Absent Provider Internal Medicine Gastroenterology; PCP Nurse Practitioner Family; Visit Provider Internal Medicine
DX: Z00.00 Encounter for general adult medical examination without abnormal findings (principal); R10.10 Upper abdominal pain, unspecified; D12.6 Benign neoplasm of colon, unspecified; J45.909 Unspecified asthma, uncomplicated
CPT/HCPCS: 36415; 80053; 80061; 83540; 83690; 84443; 85025

== ENCOUNTER 2023-01-31 08:17 | Day surgery (SDC) | payer OTHER, SELFPAY ==
[2023-01-26 14:52] VITALS: BMI 29.3
--- NOTE | 2023-01-30 10:17 | P.CONAN_ITS ---
Documented by User: Bibiana Angeles NP 01/30/23 10:18 HPI - Anesthesia Eval Consult details Narrative: 52yo F for Upper Endoscopy PMFSH Active Problems Active Problems: All Active Problems (Updated 12/22/22 @ 12:12 by Neena Vega MD) Anemia (Acute) Myoma (Acute) Lumbar radiculopathy, acute (Acute) Pelvic cyst (Acute) Nerve root compression (Acute) Soft tissue lesion of pelvic region (Acute) Nicotine dependence, cigarettes, uncomplicated (Acute) Sprain of right knee/leg (Acute) Annual physical exam (Acute) Hip pain, right (Acute) Piriformis syndrome of right side (Acute) Sacroiliac joint pain (Acute) Lumbar facet arthropathy (Acute) Asthma exacerbation (Acute) Allergic rhinitis (Acute) Upper abdominal pain (Acute) Asthma (Acute) Tubular adenoma of colon (Acute) Atelectasis (Acute) 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 Son No problems noted. Son No problems noted. Daughter No problems noted. Surgical History Surgical History History of appendectomy History of bilateral tubal ligation History of colonoscopy History of endometrial ablation History of esophagogastroduodenoscopy (EGD) History of removal of ovarian cyst Social History Social History Household Members: Significant Other and Children Housing: House Are you a primary day care provider to a significant other at home: No Do you presently have visiting nurse or other home services: No Alcohol intake: former Patient Tobacco Use Status: Current everyday Tobacco user Tobacco use type: Cigarette Cigarette Packs Per Day: 0.5 Cigarettes Per Day: 4 Years Smoked: 30 e-Cigarette/Vaping Use: Never Used Second Hand Smoke Exposure: No Advance Directives: No Advance Directives Information Provided: Yes Current occupational status: employed Current occupation: [employer] Sexual orientation: Straight/Heterosexual Gender identity: Female Cognitive needs: No Hearing needs: No Vision needs: Yes Meds Allergies Allergy/AdvReac Type Severity Reaction Status Date / Time Penicillins [PENICILLINS] Allergy Severe RASH Verified 01/10/23 09:49 Exam Exam Date and Time: January 30, 2023 1017 Height,Weight and Vital Signs: Height 5 ft 5 in Weight 79.832 kg Pertinent Lab Results Pertinent Lab Results: Laboratory Tests 01/11/23 01/11/23 10:36 10:36 WBC 9.0 Hgb 13.6 Hct 41.1 Plt Count 301 Sodium 141 Potassium 3.9 Chloride 104 Carbon Dioxide 24 BUN 12 Creatinine 0.67 Assessment and Plan Assessment Anesthesia Assessment: Chart Reviewed Documented by User: Katy Mckinney MD 01/31/23 09:52 [facility] [place] Past Medical History Medical History Anemia Arthritis, hip Asthma Atelectasis Chronic constipation LUCI I (cervical intraepithelial neoplasia I) (~2017) Family history of colon cancer GERD (gastroesophageal reflux disease) Hiatal hernia Mesenteric panniculitis Migraine [id number] syndrome Tubular adenoma of colon Uterine fibroid Family History Family History Father Diabetes mellitus History of colon cancer Mother Cervical cancer Diabetes mellitus Maternal Aunt Cervical cancer Lung cancer Son No problems noted. Son No problems noted. Son No problems noted. Daughter No problems noted. Surgical History Surgical History History of appendectomy History of bilateral tubal ligation History of colonoscopy History of endometrial ablation History of esophagogastroduodenoscopy (EGD) History of removal of ovarian cyst History of Problems with Anesthesia: No Social History Social History Household Members: Significant Other and Children Housing: House Are you a primary day care provider to a significant other at home: No Do you presently have visiting nurse or other home services: No Alcohol intake: former Patient Tobacco Use Status: Current everyday Tobacco user Tobacco use type: Cigarette Cigarette Packs Per Day: 0.5 Cigarettes Per Day: 4 Years Smoked: 30 e-Cigarette/Vaping Use: Never Used Second Hand Smoke Exposure: No Advance Directives: No Advance Directives Information Provided: Yes Current occupational status: employed Current occupation: [employer] Sexual orientation: Straight/Heterosexual Gender identity: Female Cognitive needs: No Hearing needs: No Vision needs: Yes Meds Allergies Allergy/AdvReac Type Severity Reaction Status Date / Time Penicillins [PENICILLINS] Allergy Severe RASH Verified 01/10/23 09:49 Exam Airway Mallampati Class: II TM Dist: >3cm Neck ROM: Full Loose/Missing/Broken Teeth: No Heart: RRR Lungs: CTA Assessment and Plan Assessment Anesthesia Assessment: Anesthesia Plan Discussed Final Anesthetic Review History of Problems with Anesthesia: No NPO: Yes ASA Class: II Final Preanesthetic Review: Meds/Allgs Chart Reviewed, Consent Obtained/Reviewed and Anes Risks/Benef Reviewed Patient Risk: Low Procedure Risk: Intermediate Anesthetic Plan Anesthetic Plan: MAC: Disposition: Standard PACU
[2023-01-31 09:02] VITALS: BP 134/83; PULSE 76; RESP 16; TEMP 36.2; O2SAT 97
--- NOTE | 2023-01-31 09:28 | MHC.SHP ---
Pre-Procedural Eval Section A Date of Service: 01/31/23 Section B Chief Complaint: GERD,Anemia,Upper abdominal pain, bloating, nausea Relevant Family History (Specify if Yes): No Relevant Social History: Tobacco Use Present Medications: see Short Stay Collaborative assessment Medical History: Significant History (Asthma Atelectasis Chronic constipation LUCI I (cervical intraepithelial neoplasia I) (~2017) Family history of colon cancer GERD (gastroesophageal reflux disease) Hiatal hernia Mesenteric panniculitis Migraine [id number] syndrome Tubular adenoma of colon Uterine fibroid) History of Previous Operations: Relevant previous surgery/procedure and date(s) (History of appendectomy History of bilateral tubal ligation History of colonoscopy History of esophagogastroduodenoscopy (EGD) History of removal of ovarian cyst) Allergies: Allergies Allergy/AdvReac Type Severity Reaction Status Date / Time Penicillins [PENICILLINS] Allergy Severe RASH Verified 01/10/23 09:49 Review of Systems Sugical H&P ROS: Negative: Constitution, Cardiovascular, Respiratory and Gastrointestinal Exam Surgical H&P Exam: Normal: Heart, Normal: Lungs, Normal: Extremities and Normal: Abdomen Plan Diagnosis/Plan: Unchanged I have reviewed the history and physical and performed a pertinent physical examination on my patient. No changes have occurred unless specified. Time Spent With Patient Time: Total time managing care of this patient today ____ minutes.
[2023-01-31] MEDS: Lactated Ringers 1,000 ML 100 ML IVCONT (10:12)
--- NOTE | 2023-01-31 10:36 | W.PM.OPN ---
Operative Note Operative Note Date of Service: 01/31/23 Narrative: FLEXIBLE TRANSORAL UPPER GASTROINTESTINAL ENDOSCOPY WITH BIOPSIES Pre-op diagnosis: Abdominal pain, bloating, nausea Post-op diagnosis: Gastritis, gastric antral nodule Endoscopist:? Neena Vega MD Anesthesia:?MAC Consent: Indications for the procedure and potential complications of bleeding, perforation, reaction to medications and missed diagnosis were discussed with the patient and informed consent was obtained. Instrument: Olympus GIF H 190 mid size upper endoscope Monitoring: Vital signs and clinical assessment, continuous EKG monitoring, Pulse oximetry, Carbon Dioxide monitoring and blood pressure monitoring were done throughout the procedure. Procedure: The patient was placed in the left lateral decubitis position and pre-procedure medications were administered and a bite block was placed. The endoscope was inserted into the mouth and advanced under direct vision to the third part of duodenum. A careful inspection was made as the upper endoscope was withdrawn including a retroflexed examination of the proximal stomach; Findings and interventions are described below. Findings: Larynx: Normal Esophagus: GE junction at 38 cms. No esophagitis or Chavez's. Stomach: A 2 cms benign appearing nodule in the antrum/pre-pyloric area with a small erosion - biopsied. Mild gastric erythema. Antral biopsies were obtained to check for Helicobacter pylori. Grade 2 flap valve on retroflexed examination of the cardia. Duodenum: Normal bulb and descending duodenum. Biopsies were obtained from 3rd part of the duodenum to check for celiac sprue Intervention: Biopsies as noted above Impression and Post Procedure Diagnosis: Endoscopy Findings: STOMACH: A 2 cms benign appearing nodule in the antrum/pre-pyloric area with a small erosion - biopsied. Mild gastric erythema. Antral biopsies were obtained to check for Helicobacter pylori. DUODENUM: Normal - biopsied to check for celiac sprue Plan: Await pathology results Patient has an appointment on 03/30/23 in the GI Clinic with Neena Vega M.D. Above findings were reviewed with the patient and Gastritis handout was given in the discharge area BIOPSIES SHOWED: A.? Small bowel, biopsy:? Small intestinal mucosa with mildly increased intraepithelial lymphocytes and preserved villous architecture.? See comment. B.? Stomach, antrum, biopsy:? Antral-type mucosa with mild chronic inactive inflammation; no Helicobacter organisms seen. C.? Stomach, antral nodule: - Antral-type mucosa with moderate chronic, focally active, inflammation. - Rare forms suspicious for H pylori identified. D.? Stomach, body, biopsy: - Antral-type and oxyntic mucosa with moderate chronic active inflammation. - Positive for H pylori. COMMENT:? The lymphocytes in the duodenum are likely secondary to the H pylori infection. 02/10/23 Pt called and biopsy results reviewed. Gastric biopsies positive for H Pylori Pt advised to take tetracycline, metronidazole and bismuth subsalicylate for 10 days. Will check for H Pylori eradication on her FU appt
[2023-01-31 11:00] VITALS: BP 123/83; PULSE 88; RESP 16; TEMP 36.7; O2SAT 99
[2023-01-31 11:15] VITALS: BP 120/82; PULSE 80; RESP 16; O2SAT 99
[2023-01-31 11:30] VITALS: BP 131/86; PULSE 84; RESP 18; TEMP 36.7; O2SAT 100
== END 2023-01-31 12:08 | disposition home or self-care (01) ==
PROVIDERS: PCP Nurse Practitioner Family; Visit Provider Internal Medicine Gastroenterology
PROC: 0DJ08ZZ Inspection of Upper Intestinal Tract, Via Natural or Artificial Opening Endoscopic (ICD-10-PCS; CPT 43235; principal; 2023-01-31 10:20)
DX: K29.70 Gastritis, unspecified, without bleeding (principal); K25.9 Gastric ulcer, unspecified as acute or chronic, without hemorrhage or perforation; B96.81 Helicobacter pylori [H. pylori] as the cause of diseases classified elsewhere; K21.9 Gastro-esophageal reflux disease without esophagitis; D64.9 Anemia, unspecified; K59.09 Other constipation; R10.10 Upper abdominal pain, unspecified; F17.210 Nicotine dependence, cigarettes, uncomplicated; Z86.010 Personal history of colon polyps; Z80.0 Family history of malignant neoplasm of digestive organs; Z79.899 Other long term (current) drug therapy
CPT/HCPCS: 43239; 88305; 88342

== ENCOUNTER → 2023-01-31 08:17 | Outpatient (BNV) | payer OTHER, SELFPAY | PROVIDERS: PCP Nurse Practitioner Family; Visit Provider Internal Medicine Gastroenterology | DX: R10.9 Unspecified abdominal pain (principal); B96.81 Helicobacter pylori [H. pylori] as the cause of diseases classified elsewhere; K29.70 Gastritis, unspecified, without bleeding; K31.7 Polyp of stomach and duodenum | CPT/HCPCS: 43239 ==

== ENCOUNTER 2023-03-13 15:07 | Outpatient (AMB) | payer OTHER, SELFPAY ==
[2023-03-13 15:37] VITALS: BP 130/80; PULSE 86; TEMP 36.6; O2SAT 98; BMI 28.0
--- NOTE | 2023-03-13 15:37 | AM.OFFWIN_ITS ---
Intake Vital Signs 03/13/23 15:37 Height 5 ft 5 in Weight 168 lb 9 oz BMI 28.0 BP 130/80 Blood Pressure Location Rt brachial Position Sitting Pulse 86 Pulse Source Pulse Oximeter Temp 97.8 F Temp Source Temporal Artery Scan Pulse Oximetry (%) 98 Oxygen Delivery Method Room Air Intake Visit Reasons: EP Cold Symptoms/Asthma (masked) Intake Note: pt is here for c/o cold symptoms and asthma Patient Tobacco Use Status: Current everyday Tobacco user Allergies Penicillins [PENICILLINS] Allergy (Severe, Verified 03/13/23 16:11) RASH Medication List - Last Reconciled 03/13/23 by Usman Perdomo MD albuterol sulfate 90 mcg/actuation (ProAir RespiClick) 2 inhalations inhalation Q6H PRN albuterol sulfate 1.25 mg (3 mL) inhalation Q4-6H PRN 30 days azithromycin take 500 mg today (day 1), then 250 mg for 4 days (days 2-5) PO bismuth subsalicylate 2 tabs PO QID 10 days cholecalciferol (vitamin D3) 250 mcg PO 2XW 28 days esomeprazole magnesium (Nexium) 20 mg PO DAILY 90 days famotidine 20 mg PO BID 30 days fluticasone propion-salmeterol 115-21 mcg/actuation (Advair HFA) 2 puffs inhalation Q12H 30 days fluticasone propionate 50 mcg/actuation 1 spray intranasal BID 30 days ibuprofen 800 mg PO Q8H PRN 30 days montelukast (Singulair) 10 mg PO BEDTIME 1 month nebulizers As directed prednisone 60 mg (3 x 20 mg) PO DAILY tiotropium bromide 2.5 mcg/actuation (Spiriva Respimat) 2 puffs inhalation DAILY 30 days Do you need a note to return to daycare/school/sports/work: Yes HPI EP Cold Symptoms/Asthma (masked) HPI Details Patient presents for a sick visit. Reporting symptoms of sinus congestion, sore throat and difficulty swallowing. Low-grade fever. No family member is sick. No recent travel. Patient reports symptoms of malaise and fatigue. [facility] Medical History Anemia Arthritis, hip Asthma Atelectasis Chronic constipation LUCI I (cervical intraepithelial neoplasia I) (~2017) Family history of colon cancer GERD (gastroesophageal reflux disease) Hiatal hernia Mesenteric panniculitis Migraine [id number] syndrome Tubular adenoma of colon Uterine fibroid Surgical History History of appendectomy History of bilateral tubal ligation History of colonoscopy History of endometrial ablation History of esophagogastroduodenoscopy (EGD) History of removal of ovarian cyst Family History Father Diabetes mellitus History of colon cancer Mother Cervical cancer Diabetes mellitus Maternal Aunt Cervical cancer Lung cancer Son No problems noted. Son No problems noted. Son No problems noted. Daughter No problems noted. Social History Household Members: Significant Other and Children Housing: House Are you a primary primary care coordinator to a significant other at home: No Do you presently have visiting nurse or other home services: No Alcohol intake: former Patient Tobacco Use Status: Current everyday Tobacco user Tobacco use type: Cigarette Cigarette Packs Per Day: 0.5 Cigarettes Per Day: 4 Years Smoked: 30 e-Cigarette/Vaping Use: Never Used Second Hand Smoke Exposure: No Current occupational status: employed Current occupation: [employer] Sexual orientation: Straight/Heterosexual Gender identity: Female Cognitive needs: No Hearing needs: No Vision needs: Yes Female Reproductive History Menstrual Age of Menarche: 12 Physical Exam Vital Signs: Last Vital Signs Temp 97.8 F 03/13/23 15:37 Pulse 86 03/13/23 15:37 BP 130/80 03/13/23 15:37 Pulse Ox 98 03/13/23 15:37 Oxygen Delivery Method Room Air 03/13/23 15:37 BMI result Body Mass Index 28.0 Const General: cooperative and healthy appearing Nutritional Appearance: well nourished Orientation/consciousness: patient oriented x3 Limitations: no limitations HEENT Head: Yes normal to inspection Eyes General: appearance normal, both eyes and all related structures Neck Neck: Yes normal visual inspection Chest Chest palpation & inspection: normal palpation of entire chest wall Resp Effort & Inspection: normal respiratory effort Neuro General: patient oriented x3 Assessment & Plan Assessment & Plan (1) Upper respiratory tract infection: Code(s): J06.9 - Acute upper respiratory infection, unspecified Qualifiers: URI type: unspecified URI Qualified Code(s): J06.9 - Acute upper respiratory infection, unspecified Plan: Antibiotics ordered. Increase fluid intake. Tylenol for aches and pains. If symptoms worsen, follow-up here for a recheck. Medications: New prednisone 60 mg (3 x 20 mg) PO DAILY 9 tabs 0RF azithromycin take 500 mg today (day 1), then 250 mg for 4 days (days 2-5) PO 6 tabs 0RF Refilled albuterol sulfate 90 mcg/actuation (ProAir RespiClick) 2 inhalations inhalation Q6H PRN 1 ea 11RF shortness of breath or wheezing albuterol sulfate 1.25 mg (3 mL) inhalation Q4-6H 30 days PRN 15 mL 0RF shortness of breath or wheezing Coding Level of Care Code Est Pt Level 3 (85851) Diagnoses Upper respiratory tract infection, unspecified type J06.9 URI type: unspecified URI
== END 2023-03-13 16:21 | disposition home or self-care (01) ==
PROVIDERS: PCP Nurse Practitioner Family; Visit Provider Internal Medicine
DX: J06.9 Acute upper respiratory infection, unspecified (principal)
CPT/HCPCS: 99213

== ENCOUNTER 2023-05-04 11:18 | Outpatient (REF) | payer OTHER, SELFPAY ==
--- NOTE | ~2023-05-04 | MM_ITS ---
EXAMINATION: MM DIAGNOSTIC DIGITAL BREAST TOMOSYNTHESIS, RIGHT CLINICAL INFORMATION: 6 month Follow-up calcifications right breast approximately 12:00 axis. COMPARISON: Mammography: 09/01/2022, 08/23/2022, 02/22/2019. TECHNIQUE: Digital right breast tomosynthesis is performed in both the craniocaudal and mediolateral oblique views along with computer-aided detection (CAD). Synthesized 2D images are generated from the tomosynthesis. In addition, 2-D spot magnification views of the right breast were performed in the CC x2, and ML x2 projections. FINDINGS: The breasts are heterogeneously dense, which may obscure small masses (ACR BI-RADS breast composition Category c). The calcifications in question in the posterior 12:00 region right breast, have coalesced into a linear grouped with coarsened appearance, consistent with benign etiology. These are benign and no further follow-up recommended. Benign nodule also noted in the 6:00 axis, unchanged. MM/MM tomosynthesis diagnostic RT IMPRESSION: There are no findings suspicious for malignancy in the right breast. Calcifications at 12:00 are benign. No further follow-up recommended. Nodule in the 6:00 axis is also benign and unchanged from 2019. Recommend the patient resume annual routine screening. ASSESSMENT: BI-RADS BI-RADS 2 - Benign Findings RECOMMENDATION: 1 year F/U Results were provided to the patient at time of visit by the technologist. This patient's information was entered into a reminder system with a target due date for their next mammogram.
== END 2023-05-04 11:19 | disposition home or self-care (01) ==
LOC: HO.MAMMO 11:18
PROVIDERS: PCP Internal Medicine; Visit Provider Internal Medicine
DX: R92.1 Mammographic calcification found on diagnostic imaging of breast (principal)
CPT/HCPCS: 77061; 77065

== ENCOUNTER → 2023-05-04 11:30 | Outpatient (BNV) | payer OTHER, SELFPAY | PROVIDERS: PCP Internal Medicine; Visit Provider Radiology Diagnostic Radiology | DX: R92.1 Mammographic calcification found on diagnostic imaging of breast (principal) | CPT/HCPCS: 77061; 77065 ==

== ENCOUNTER 2023-07-06 08:46 | Outpatient (AMB) | payer OTHER, SELFPAY ==
--- NOTE | 2023-07-06 09:30 | A.OFFPC_ITS ---
Vital Signs 07/06/23 09:31 Height 5 ft 5 in Weight 167 lb BMI 27.8 BP 144/96 H Blood Pressure Location Lt brachial Position Sitting Pulse 96 Pulse Source Pulse Oximeter Pulse Oximetry (%) 97 Oxygen Delivery Method Room Air Intake Visit Reasons: Urgent Care follow up/ low blood sugar Intake Note: Pt is here today for a follow up visit. Allergies Penicillins [PENICILLINS] Allergy (Severe, Verified 07/06/23 09:34) RASH Medication List - Last Reconciled 07/06/23 by Ena Nj MD albuterol sulfate 90 mcg/actuation (ProAir RespiClick) 2 inhalations inhalation Q6H PRN albuterol sulfate 1.25 mg (3 mL) inhalation Q4-6H PRN 30 days bismuth subsalicylate 2 tabs PO QID 10 days cholecalciferol (vitamin D3) 250 mcg PO 2XW 28 days esomeprazole magnesium (Nexium) 20 mg PO DAILY 90 days famotidine 20 mg PO BID 30 days fluticasone propion-salmeterol 115-21 mcg/actuation (Advair HFA) 2 puffs inhalation Q12H 30 days fluticasone propionate 50 mcg/actuation 1 spray intranasal BID 30 days ibuprofen 800 mg PO Q8H PRN montelukast (Singulair) 10 mg PO BEDTIME 1 month nebulizers As directed tiotropium bromide 2.5 mcg/actuation (Spiriva Respimat) 2 puffs inhalation DAILY 30 days Tobacco use date assessed: 07/06/23 Dental Screening Dental Screen Date: 07/06/23 Did you have a dental visit in the last 12 months?: Yes Did you have a dental problem in the last 6 months where you did not have access to dental care?: No Was dental information given to patient?: Patient has dentist HPI Urgent Care follow up/ low blood sugar HPI Details Patient presents for the follow-up of urgent care visit for anxiety attack. Chronic asthma/COPD has been controlled on Advair and Spiriva. Patient has been seeing a counselor for chronic anxiety. 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 LUCI I (cervical intraepithelial neoplasia I) (~2017) Mesenteric panniculitis Chronic constipation Family history of colon cancer Uterine fibroid GERD (gastroesophageal reflux disease) Hiatal hernia Anemia Migraine Arthritis, hip Surgical History History of endometrial ablation History of esophagogastroduodenoscopy (EGD) History of colonoscopy History of bilateral tubal ligation History of removal of ovarian cyst History of appendectomy Family History Father Diabetes mellitus History of colon cancer Mother Cervical cancer Diabetes mellitus Maternal Aunt Cervical cancer Lung cancer Son No problems noted. Son No problems noted. Son No problems noted. Daughter No problems noted. Social History Household Members: Significant Other and Children Housing: House Are you a primary healthcare business analyst to a significant other at home: No Do you presently have visiting nurse or other home services: No Alcohol intake: former Patient Tobacco Use Status: Current everyday Tobacco user Tobacco use type: Cigarette Cigarette Packs Per Day: 0.5 Cigarettes Per Day: 4 Years Smoked: 30 e-Cigarette/Vaping Use: Never Used Second Hand Smoke Exposure: No Current occupational status: employed Current occupation: [employer] Sexual orientation: Straight/Heterosexual Gender identity: Female Cognitive needs: No Hearing needs: No Vision needs: Yes Female Reproductive History Menstrual Age of Menarche: 12 Questionnaire PHQ-9 Over the last 2 weeks, how often have you been bothered by any of the following problems? 1. Little interest or pleasure in doing things: several days 2. Feeling down, depressed, or hopeless: several days 3. Trouble falling or staying asleep, or sleeping too much: nearly every day 4. Feeling tired or having little energy: nearly every day 5. Poor appetite or overeating: several days 6. Feeling bad about yourself - or that you are a failure or have let yourself or your family down: nearly every day 7. Trouble concentrating on things, such as reading the newspaper or watching television: nearly every day 8. Moving or speaking so slowly that other people could have noticed. Or the opposite - being so fidgety or restless that you have been moving around a lot more than usual: more than half the days 9. Thoughts that you would be better off or of hurting yourself in some way: not at all Total score: 17 Depression Screening Interpretation: Positive Depression Screening Done: Yes 55345 - PHQ-9 Billing: Yes Source: Developed by Drs. Festus Birch, Cj Green and colleagues, with an educational minh from [employer]. Thrive Questionnaire Date Thrive assessed: 07/06/23 I am a: Patient What is your living situation today?: I have a steady place to live Within the past 12 months, did the food you bought not last and you didn't have the money to get more?: Often true Within the past 12 months, did you worry whether your food would run out before you got money to buy more?: Often true Do you have trouble paying for medicines?: No Do you have trouble getting transportation to medical appointments?: No Do you have trouble paying your heating and electricity bill?: Yes Do you have trouble taking care of your child, family member or friend?: No Do you have trouble with day-to-day activities such as bathing, preparing meals, shopping, managing finances, etc.?: No Are you currently unemployed and looking for a job?: No Are you interested in more education?: No AUDIT C Alcohol Use Questionnaire (AUDIT-C) 1. How often do you have a drink containing alcohol?: Never 3. How often do you have six or more drinks on one occasion?: Never Total Score: 0 SHAMA-7 AMB Questionnaire SHAMA-7 Date SHAMA - 7 assessed: 07/06/23 Feeling nervous, anxious, or on edge: 1 = Several days Not being able to stop or control worryin = Nearly every day Worrying too much about different things: 3 = Nearly every day Trouble relaxin = Not at all Being so restless that it is hard to sit still: 3 = Nearly every day Becoming easily annoyed or irritable: 3 = Nearly every day Feeling afraid as if something awful might happen: 3 = Nearly every day Total SHAMA-7 score (0-4 normal; 5-9 mild; 10-14 moderate; 15-21 severe): 16 Source: Developed by Vania Sher Kurt Kroenke and colleagues, with an educational minh from [employer]. ACT Questionnaire In the past 4 weeks, how much of the time did your asthma keep you from getting as much done at work, school or at home?: Some of the time During the past 4 weeks, how often have you had shortness of breath?: 1-2 times a week During the past 4 weeks, how often did your asthma symptoms wake you up at night or earlier than usual in the morning?: 2-3 nights a week During the past 4 weeks, how often have you had to use your rescue inhaler or nebulizer medication?: 2-3 times a week How would you rate your asthma control during the past 4 weeks?: Well controlled Score: 16 Review of Systems Const All systems reviewed & are unremarkable except as noted in HPI and below Reports no additional complaints Eyes Reports no additional complaints ENT Reports no additional complaints Card Reports no additional complaints Resp Reports no additional complaints GI Reports no additional complaints Physical exam (Primary Care) Vital Signs: Last Vital Signs Pulse 96 07/06/23 09:31 BP 144/96 H 07/06/23 09:31 Pulse Ox 97 07/06/23 09:31 Oxygen Delivery Method Room Air 07/06/23 09:31 BMI result Body Mass Index 27.8 Tobacco/Smoking Status: Tobacco use Status Tobacco use date assessed 07/06/23 07/06/23 09:38 Patient Tobacco Use Status Current everyday Tobacco 07/06/23 09:32 Tobacco use type Cigarette 07/06/23 09:32 e-Cigarette/Vaping Use Never Used 07/06/23 09:32 PHQ-9: PHQ-9 Score PHQ-9: Total score 17 07/06/23 10:01 Depression Screening Interpretation: Positive Thrive Assessment: Date of Thrive Assessment Date Thrive assessed 07/06/23 07/06/23 10:00 Const General: no acute distress HENMT Head: Yes normal to inspection Ears: hearing grossly normal bilaterally Face and sinus: Yes normal facial exam Eyes General: appearance normal, both eyes and all related structures Neck Neck: Yes no lymphadenopathy and Yes supple Resp Effort & Inspection: normal respiratory effort Auscultation: clear to auscultation bilaterally Cardio Rhythm: regular rhythm Heart sounds: S1 normal heart sound present and S2 normal heart sound present GI Inspection: Yes normal to inspection Assessment and Plan Assessment & Plan (1) Anemia: Code(s): D64.9 - Anemia, unspecified Plan: Patient will return for fasting blood work including CBC (2) Asthma: Code(s): J45.909 - Unspecified asthma, uncomplicated Qualifiers: Asthma complication type: uncomplicated Asthma persistence: persistent Asthma severity: moderate Qualified Code(s): J45.40 - Moderate persistent asthma, uncomplicated Plan: Continue current inhalers, tobacco quitting discussed with the patient (3) Hyperglycemia: Code(s): R73.9 - Hyperglycemia, unspecified Plan: ADA diet increase physical activity weight loss discussed with the patient . she will return in 3 months for fasting blood work (4) Anxiety: Code(s): F41.9 - Anxiety disorder, unspecified Plan: Stress management discussed with the patient she will follow-up with counselor. Patient is not interested in taking antidepressant Orders: Orders Complete Blood Count Auto Diff 3 Months D64.9 - Anemia, unspecified, J45.909 - Unspecified asthma, uncomplicated, R73.9 - Hyperglycemia, unspecified Microalbumin, Random (w Creat) 3 Months D64.9 - Anemia, unspecified, J45.909 - Unspecified asthma, uncomplicated, R73.9 - Hyperglycemia, unspecified Comprehensive [place]. Panel Fast 3 Months D64.9 - Anemia, unspecified, J45.909 - Unspecified asthma, uncomplicated, R73.9 - Hyperglycemia, unspecified Lipid Panel 3 Months D64.9 - Anemia, unspecified, J45.909 - Unspecified asthma, uncomplicated, R73.9 - Hyperglycemia, unspecified Hemoglobin A1c 3 Months D64.9 - Anemia, unspecified, J45.909 - Unspecified asthma, uncomplicated, R73.9 - Hyperglycemia, unspecified TSH reflex Free T4 3 Months D64.9 - Anemia, unspecified, J45.909 - Unspecified asthma, uncomplicated, R73.9 - Hyperglycemia, unspecified SARS-CoV2/FLU/RSV Today J06.9 - Acute upper respiratory infection, unspecified Coding Level of Care Code Est Pt Level 4 (91098) Diagnoses Anemia D64.9 Moderate persistent asthma without complication J45.40 Asthma complication type: uncomplicated Asthma persistence: persistent Asthma severity: moderate Hyperglycemia R73.9 Anxiety F41.9
[2023-07-06 09:31] VITALS: BP 144/96; PULSE 96; O2SAT 97; BMI 27.8
== END 2023-07-06 10:46 | disposition home or self-care (01) ==
PROVIDERS: PCP Internal Medicine; Visit Provider Internal Medicine
DX: D64.9 Anemia, unspecified (principal); J45.40 Moderate persistent asthma, uncomplicated; R73.9 Hyperglycemia, unspecified; F41.9 Anxiety disorder, unspecified; Z90.49 Acquired absence of other specified parts of digestive tract
CPT/HCPCS: 99214

== ENCOUNTER 2023-07-06 09:52 | Outpatient (REF) | payer OTHER, SELFPAY ==
[2023-07-06 14:41] LABS: Influenza A PCR NEGATIVE (Negative); Influenza B PCR NEGATIVE (Negative); Resp Syncy Virus RNA Qual PCR NEGATIVE (Negative); SARS COV2 PCR INHOUSE POSITIVE (Negative)
== END 2023-07-06 09:53 | disposition home or self-care (01) ==
LOC: HO.LAB 09:52
PROVIDERS: Visit Provider Internal Medicine
DX: J06.9 Acute upper respiratory infection, unspecified (principal)
CPT/HCPCS: 0241U

== ENCOUNTER 2023-09-13 13:55 | Outpatient (AMB) | payer OTHER, SELFPAY ==
--- NOTE | 2023-09-13 13:58 | MHC.OFFVIS ---
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 No complaints. Last Pap/HPV was negative in 07/17 Last Mammogram was BI-RADS 2 in 05/18 Last Colonoscopy was negative in 02/11, the recommendation was to repeat in 5 years [facility] Medical History Tubular adenoma of colon Atelectasis Asthma [id number] syndrome LUCI I (cervical intraepithelial neoplasia I) (~2016) Mesenteric panniculitis Chronic constipation Family history of colon cancer Uterine fibroid GERD (gastroesophageal reflux disease) Hiatal hernia Anemia Migraine Arthritis, hip Surgical History History of endometrial ablation History of esophagogastroduodenoscopy (EGD) History of colonoscopy History of bilateral tubal ligation History of removal of ovarian cyst History of appendectomy Family History (Updated 09/13/23 @ 14:06 by Bina Maza CMA) Father Diabetes mellitus History of colon cancer Mother Cervical cancer Diabetes mellitus Lung cancer Maternal Aunt Cervical cancer Lung cancer Son No problems noted. Son No problems noted. Son No problems noted. Daughter No problems noted. Social History Household Members: Significant Other and Children Housing: House Are you a primary long term acute care registered nurse to a significant other at home: No Do you presently have visiting nurse or other home services: No Alcohol intake: former Patient Tobacco Use Status: Current everyday Tobacco user Tobacco use type: Cigarette Cigarette Packs Per Day: 0.5 Cigarettes Per Day: 1 Years Smoked: 30 e-Cigarette/Vaping Use: Never Used Second Hand Smoke Exposure: No Current occupational status: employed Current occupation: [employer] Sexual orientation: Straight/Heterosexual Gender identity: Female Cognitive needs: No Hearing needs: No Vision needs: Yes Female Reproductive History Menstrual Age of Menarche: 12 control method: permanent sterilization Menopause type: natural Total pregnancies: 4 Full term: 4 Number of Living Children: 4 Date of last pap smear: 07/23/21 Date of Mammogram: 05/04/23 Review of Systems Const All systems reviewed & are unremarkable except as noted in HPI and below Card Reports as per HPI Resp Reports as per HPI GI Reports as per HPI and Reports no additional complaints Reports as per HPI Physical Exam Const General: cooperative, healthy appearing and comfortable Chest Chest palpation & inspection: normal inspection of the chest and normal palpation of entire chest wall Breast/axilla inspection: normal inspection of the breasts and normal inspection of the axillae Breast/axilla palpation: normal palpation of the breasts, normal palpation of the axillae and no axillary lymphadenopathy Resp Effort & Inspection: normal respiratory effort Auscultation: clear to auscultation bilaterally Percussion: percussion normal Cardio Palpation: normal PMI Rate: regular rate Rhythm: regular rhythm Heart sounds: no murmurs and no rubs Peripheral pulses: Peripheral pulses 2+ throughout GI Inspection: Yes normal to inspection Palpation (GI): Soft to palpation, nontender, no guarding, not rigid and No hepatosplenomegaly present Percussion: Yes normal to percussion Auscultation: normal bowel sounds Rectal Exam - Female: deferred General: Yes bladder normal to palpation External Female Exam: No lesion Speculum Exam - Vagina: normal appearance of the vagina, normal palpation, normal vaginal discharge and not erythematous Speculum Exam - Cervix: normal appearance of the cervix and normal palpation Bimanual exam- vagina & uterus: normal bimanual exam, normal palpation, uterine size normal, bladder normal to palpation, consistency normal and normal palpation Bimanual Exam- Adnexa, other: normal adnexae, no masses and no tenderness Assessment & Plan Assessment & Plan (1) Well woman exam: Onset Date: ~11/01/20 Comment: LUCI 1 in 2017 followed by normal co testing 2018 Code(s): Z01.419 - Encounter for gynecological examination (general) (routine) without abnormal findings Plan: Co testing not indicated this year. Counseled the patient about the recommended dietary allowance of 1200 mg of Calcium & 600 IU of vitamin D. Instructions given the patient to schedule next screening Mammogram in 05/19. The patient was referred to GI for screening colonoscopy . The patient was instructed to perform monthly self-breast exams and schedule annual exam in a year. All questions answered and the patient verbalized understanding. Orders: Referrals Gastroenterology Referral Z12.11 - Encounter for screening for malignant neoplasm of colon Quality Reporting (2020) Adult ([facility] 138/08/17/68) Smoking risk assessment performed?: Yes Patient Tobacco Use Status: Current everyday Tobacco user Coding Level of Care Code Est Pt Prev Care 40-64y(35973) Diagnoses Well woman exam Z01.419
[2023-09-13 14:00] VITALS: BP 144/108; BMI 27.6
== END 2023-09-13 14:28 | disposition home or self-care (01) ==
LOC: HO.HWS 13:55
PROVIDERS: PCP Internal Medicine; Visit Provider Obstetrics & Gynecology
DX: Z01.419 Encounter for gynecological examination (general) (routine) without abnormal findings (principal)
CPT/HCPCS: 99396

== ENCOUNTER → 2023-09-13 13:55 | Outpatient (BNVA) | payer OTHER, SELFPAY | PROVIDERS: PCP Internal Medicine; Visit Provider Obstetrics & Gynecology | DX: Z01.419 Encounter for gynecological examination (general) (routine) without abnormal findings (principal) | CPT/HCPCS: 99396 ==

== ENCOUNTER 2023-09-14 14:16 | Emergency (ER) | payer OTHER, SELFPAY ==
--- NOTE | 2023-09-14 14:18 | ECG_ITS ---
Test Reason : CP Blood Pressure : / mmHG Vent. Rate : 086 BPM Atrial Rate : 086 BPM P-R Int : 128 ms QRS Dur : 086 ms QT Int : 396 ms P-R-T Axes : 059 005 024 degrees QTc Int : 473 ms Normal sinus rhythm Moderate voltage criteria for LVH, may be normal variant ( R in aVL , [place] product ) Cannot rule out Anterior infarct , age undetermined Abnormal ECG When compared with ECG of 30-NOV-2020 13:43, No significant changes seen Referred By: Lisa Hugo Electronically Signed By:MUKESH ASTUDILLO
[2023-09-14 14:38] LABS: MANUAL DIFF FLAG NO
[2023-09-14 14:42] LABS: Basophils Percent Auto 0.7 % (0-2); Eosinophils Absolute Auto 0.2 X10*3/uL (0.0-0.4); Eosinophils Percent Auto 2.8 % (0-4); Hematocrit 38.5 % (37.0-47.0); Hemoglobin 13.3 g/dl (12.0-16.0); Imm Gran Abs Auto 0.01 X10*3/uL (0.00-0.03); Imm Gran Pct Auto 0.2 % (0.0-0.4); Lymphocytes Absolute Auto 2.3 X10*3/uL (1.2-4.9); Lymphocytes Percent Auto 42.1 % (20-40); Mean Corpuscular HGB Conc 34.5 g/dl (31.0-35.0); Mean Corpuscular Hemoglobin 30.8 pg (27.0-33.0); Mean Corpuscular Volume 89.1 fL (80.0-98.0); Mean Platelet Volume 10.1 fL (9.4-12.3); Monocytes Absolute Auto 0.4 X10*3/uL (0.1-1.2); Monocytes Percent Auto 7.3 % (2-11); Neutrophils Absolute Auto 2.5 x10*3/uL (2.0-8.3); Neutrophils Percent Auto 46.9 % (45-73); Platelet Count 264 X10*3/uL (160-400); Red Blood Count 4.32 X10*6/uL (4.20-5.50); Red Cell Distribution Width 12.6 % (11.0-16.0); White Blood Count 5.3 X10*3/uL (4.8-10.8)
[2023-09-14 14:55] LABS: Alanine Aminotransferase 13 U/L (0-31); Albumin Level 4.3 g/dL (3.5-5.0); Alkaline Phosphatase 64 U/L (39-117); Anion Gap 13 (12-20); Aspartate Amino Transferase 14 U/L (5-31); Bilirubin Total 0.5 mg/dL (0.0-1.0); Blood Urea Nitrogen 17 mg/dL (9-16); Calcium 9.6 mg/dL (8.4-10.2); Carbon Dioxide 28 mmol/L (22-29); Chloride 107 mmol/L (96-108); Estimated Glomerular Filt Rate > 60; Glucose Random 110 mg/dL (60-115); Sodium 144 mmol/L (135-145); Total Protein 7.3 g/dL (6.5-8.0)
[2023-09-14 14:59] VITALS: BP 155/83; PULSE 81; RESP 17; TEMP 36.6; O2SAT 100; BMI 28.0
[2023-09-14 15:02] LABS: Troponin-I High Sensitivity 9.5 ng/L (<3.5-17.0)
--- NOTE | 2023-09-14 15:38 | ED_ITS ---
HPI - Chest Pain General Chief Complaint: Chest Pain Stated Complaint: chest pain high pb numbness in arms headache Time Seen by Provider: 09/14/23 18:35 Source: patient Mode of arrival: ambulatory Limitations: no limitations History of Present Illness HPI narrative: Patient has increased anxiety and stress unable to sleep for last few days because of her medics situation comes here does she was feeling anxious headache numbness chest pain prior to arrival at the time of Alexandra's patient feeling much better Related Data Previous Rx's Medication Instructions Recorded nebulizers #1 ea 12/09/20 fluticasone propionate 115 2 puff inhalation Q12H 30 days #12 02/01/22 mcg-salmeterol 21 mcg/actuation grams HFA inhaler (Advair HFA) famotidine 20 mg tablet 20 mg PO BID 30 days #60 tabs 05/26/22 tiotropium bromide 2.5 2 puff inhalation DAILY 30 days #1 10/17/22 mcg/actuation mist for inhalation ea (Spiriva Respimat) fluticasone propionate 50 1 spray intranasal BID 30 days #16 12/21/22 mcg/actuation nasal grams spray,suspension montelukast 10 mg tablet 10 mg PO BEDTIME 1 month #30 tabs 12/21/22 (Singulair) cholecalciferol (vitamin D3) 250 250 mcg PO 2XW 28 days #8 caps 01/24/23 mcg (10,000 unit) capsule bismuth subsalicylate 262 mg 2 tab PO QID 10 days #80 tabs 02/10/23 chewable tablet albuterol sulfate 1.25 mg/3 mL 1.25 mg (3 mL) inhalation Q4-6H 03/13/23 solution for nebulization PRN shortness of breath or wheezing 30 days #15 mL albuterol sulfate 90 mcg/actuation 2 inh inhalation Q6H PRN shortness 03/13/23 breath activated powder inhaler of breath or wheezing #1 ea (ProAir RespiClick) ibuprofen 800 mg tablet 800 mg PO Q8H PRN for pain #90 tabs 03/20/23 esomeprazole magnesium 20 mg 20 mg PO DAILY #90 caps 07/19/23 capsule,delayed release lorazepam 1 mg tablet (Ativan) 1 mg PO BEDTIME PRN anxiety/sleep 09/14/23 #14 tabs Allergies Allergy/AdvReac Type Severity Reaction Status Date / Time Penicillins [PENICILLINS] Allergy Severe RASH Verified 09/14/23 14:59 [facility] Past Medical History Medical History Tubular adenoma of colon Atelectasis Asthma 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 LUCI I (cervical intraepithelial neoplasia I) (~2017) Mesenteric panniculitis Chronic constipation Family history of colon cancer Uterine fibroid GERD (gastroesophageal reflux disease) Hiatal hernia Anemia Migraine Arthritis, hip Surgical History History of endometrial ablation History of esophagogastroduodenoscopy (EGD) History of colonoscopy History of bilateral tubal ligation History of removal of ovarian cyst History of appendectomy Family History Family History (Updated 09/13/23 @ 14:06 by Bina Maza CMA) Father Diabetes mellitus History of colon cancer Mother Cervical cancer Diabetes mellitus Lung cancer Maternal Aunt Cervical cancer Lung cancer Son No problems noted. Son No problems noted. Son No problems noted. Daughter No problems noted. Social History Social History (Updated 09/13/23 @ 14:06 by Bina Maza CMA) Household Members: Significant Other and Children Housing: House Are you a primary daycare manager to a significant other at home: No Do you presently have visiting nurse or other home services: No Alcohol intake: former Patient Tobacco Use Status: Current everyday Tobacco user Tobacco use type: Cigarette Cigarette Packs Per Day: 0.5 Cigarettes Per Day: 1 Years Smoked: 30 e-Cigarette/Vaping Use: Never Used Second Hand Smoke Exposure: No Advance Directives: No Advance Directives Information Provided: No Current occupational status: employed Current occupation: [employer] Sexual orientation: Straight/Heterosexual Gender identity: Female Cognitive needs: No Hearing needs: No Vision needs: Yes Physical Exam 2 Vital Signs: Vital Signs: Last Vital Signs Temp 98 F 09/14/23 19:04 Pulse 70 09/14/23 19:04 Resp 16 09/14/23 19:04 BP 146/76 H 09/14/23 19:04 Pulse Ox 99 09/14/23 19:04 O2 Del Method Room Air 09/14/23 19:04 BMI result Body Mass Index 28.0 Appearance: Alert. Oriented X3. No acute distress anxious. Eyes: PERRLA, ENT: Pharynx normal. Oral Mucosa moist Neck: Normal inspection. Neck supple. CVS: Normal heart rate and rhythm. Pulses normal. Respiratory: No respiratory distress. Equal air entry bilateral, no wheezing/rales/rhonchi Abdomen: Soft and nontender. Bowel sounds are present, Skin: Skin warm and dry. Normal skin color. Normal skin turgor. Extremities: No lower extremity edema. No calf tenderness Neuro: Oriented X 3. Course Course Course Narrative: This is an RME: Additional HPI, ROS, PE not included below will be deferred to primary provider. 52-year-old female history of asthma, hypertension ( not on meds) presents with chest pain, shortness of breath and headache that started an hour prior to arrival under lot of stress. Plan- labs, ekg Medications Administered Discontinued Medications Generic Name Dose Route Start Last Admin Trade Name Freq PRN Reason Stop Dose Admin Acetaminophen 975 mg 09/14/23 18:21 09/14/23 18:22 Acetaminophen 325 Mg Tablet PO 09/14/23 18:22 975 mg ONCE ONE Administration Medical Decision Making Medical Decision Making [facility] Narrative: Patient with anxiety with increased stress at home likely the reason for multiple complaints labs are stable discharge patient home [facility] Differential Diagnosis Differential Diagnoses: The differential diagnosis associated with the presentation includes Anxiety/chest pain/shortness of Lab Data [facility] Lab Attestation statement: I reviewed the patient's lab results. 09/14/23 14:32 09/14/23 14:32 Labs: Lab Results 09/14/23 Range/Units 14:32 WBC 5.3 (4.8-10.8) X10*3/uL RBC 4.32 (4.20-5.50) X10*6/uL Hgb 13.3 (12.0-16.0) g/dl Hct 38.5 (37.0-47.0) % MCV 89.1 (80.0-98.0) fL MCH 30.8 (27.0-33.0) pg MCHC 34.5 (31.0-35.0) g/dl RDW 12.6 (11.0-16.0) % Plt Count 264 (160-400) X10*3/uL MPV 10.1 (9.4-12.3) fL Immature Gran % (Auto) 0.2 (0.0-0.4) % Neut % (Auto) 46.9 (45-73) % Lymph % (Auto) 42.1 H (20-40) % [place] % (Auto) 7.3 (2-11) % Eos % (Auto) 2.8 (0-4) % Baso % (Auto) 0.7 (0-2) % Lymph # (Auto) 2.3 (1.2-4.9) X10*3/uL [place] # (Auto) 0.4 (0.1-1.2) X10*3/uL Eos # (Auto) 0.2 (0.0-0.4) X10*3/uL Baso # (Auto) 0.0 (0.0-0.2) X10*3/uL Abs Immat Gran (auto) 0.01 (0.00-0.03) X10*3/uL Absolute Neuts (auto) 2.5 (2.0-8.3) x10*3/uL Absolute Nucleated RBC 0.000 (0.0-0.012) X10*3/uL Nucleated RBC % (auto) 0.0 (0.0-0.2) /100WBC Sodium 144 (135-145) mmol/L Potassium 4.0 (3.3-5.1) mmol/L Chloride 107 (96-108) mmol/L Carbon Dioxide 28 (22-29) mmol/L Anion Gap 13 (12-20) BUN 17 H (9-16) mg/dL Creatinine 0.64 (0.5-1.4) mg/dL Estim Creat Clear Calc TNP Estimated GFR > 60 Random Glucose 110 (60-115) mg/dL Calcium 9.6 D (8.4-10.2) mg/dL Total Bilirubin 0.5 (0.0-1.0) mg/dL AST 14 (5-31) U/L ALT 13 (0-31) U/L Alkaline Phosphatase 64 (39-117) U/L Troponin I High Sens 9.5 (<3.5-17.0) ng/L Total Protein 7.3 (6.5-8.0) g/dL Albumin 4.3 (3.5-5.0) g/dL Independent Interpretation I performed an independent interpretation of an: EKG Interpretation: Normal sinus rhythm heart rate 86 beats per minute LVH no acute ST-T changes no acute ischemia Discharge Plan Discharge Clinical Impression: Anxiety Patient Disposition: Home, Self-Care Instructions: Anxiety (ED) Additional Instructions: Rest at home Continue taking medication as prescribed Medication for anxiety as prescribed Sleep well , decrease caffeine intake Prescriptions: New lorazepam [Ativan] 1 mg tablet 1 mg PO BEDTIME PRN (Reason: anxiety/sleep) Qty: 14 0RF No Action famotidine 20 mg tablet 20 mg PO BID 30 Days Qty: 60 3RF Spiriva Respimat 2.5 mcg/actuation mist 2 puff inhalation DAILY 30 Days Qty: 1 11RF cholecalciferol (vitamin D3) 250 mcg (10,000 unit) capsule 250 mcg PO 2XW 28 Days Qty: 8 6RF bismuth subsalicylate 262 mg tablet,chewable 2 tab PO QID 10 Days Qty: 80 0RF ibuprofen 800 mg tablet 800 mg PO Q8H PRN (Reason: for pain) Qty: 90 3RF esomeprazole magnesium 20 mg capsule,delayed release(DR/EC) 20 mg PO DAILY Qty: 90 1RF (DME) nebulizers Misc See Rx Instructions .ROUTE .MEDSUPPLY Qty: 1 0RF Rx Instructions: As directed albuterol sulfate 1.25 mg/3 mL solution for nebulization 1.25 mg inhalation Q4-6H PRN (Reason: shortness of breath or wheezing) 30 Days Qty: 15 0RF ProAir RespiClick 90 mcg/actuation aerosol powdr breath activated 2 inh inhalation Q6H PRN (Reason: shortness of breath or wheezing) Qty: 1 11RF montelukast [Singulair] 10 mg tablet 10 mg PO BEDTIME 30 Days Qty: 30 0RF fluticasone propionate 50 mcg/actuation spray,suspension 1 spray intranasal BID 30 Days Qty: 16 0RF Rx Instructions: administer into each nostril Advair HFA 115-21 mcg/actuation HFA aerosol inhaler 2 puff inhalation Q12H 30 Days Qty: 12 11RF Interventions: ED Discharge Assessment Last Done: 09/14/23 19:04 Discharge Date/Time: 09/14/23 19:06
[2023-09-14] MEDS: Acetaminophen 325 MG TABLET 975 MG PO (18:22)
[2023-09-14 18:39] VITALS: BP 152/88; PULSE 79; RESP 14; O2SAT 99
[2023-09-14 18:45] VITALS: BP 144/89
[2023-09-14 19:04] VITALS: BP 146/76; PULSE 70; RESP 16; TEMP 36.6; TEMP 36.8; O2SAT 99
== END 2023-09-14 19:06 | disposition home or self-care (01) ==
PROVIDERS: Physician Assistant; Emergency Provider Internal Medicine; PCP Internal Medicine
DX: F41.1 Generalized anxiety disorder (principal); F43.0 Acute stress reaction; R07.89 Other chest pain; R20.0 Anesthesia of skin; R51.9 Headache, unspecified; F17.210 Nicotine dependence, cigarettes, uncomplicated; Z79.899 Other long term (current) drug therapy
CPT/HCPCS: 36415; 80053; 84484; 85025; 93005; 99283; 99285

== ENCOUNTER → 2023-09-14 14:18 | Outpatient (BNV) | payer OTHER, SELFPAY | PROVIDERS: PCP Internal Medicine; Visit Provider Internal Medicine | DX: R94.31 Abnormal electrocardiogram [ECG] [EKG] (principal) | CPT/HCPCS: 93010 ==

== ENCOUNTER 2023-11-28 10:20 | Outpatient (REF) | payer OTHER, SELFPAY ==
[2023-11-28 13:21] LABS: MANUAL DIFF FLAG NO
[2023-11-28 13:36] LABS: Basophils Absolute Auto 0.1 X10*3/uL (0.0-0.2); Basophils Percent Auto 0.9 % (0-2); Eosinophils Absolute Auto 0.2 X10*3/uL (0.0-0.4); Eosinophils Percent Auto 3.7 % (0-4); Hematocrit 39.9 % (37.0-47.0); Hemoglobin 13.4 g/dl (12.0-16.0); Imm Gran Abs Auto 0.03 X10*3/uL (0.00-0.03); Imm Gran Pct Auto 0.5 % (0.0-0.4); Lymphocytes Absolute Auto 3.2 X10*3/uL (1.2-4.9); Lymphocytes Percent Auto 48.9 % (20-40); Mean Corpuscular HGB Conc 33.6 g/dl (31.0-35.0); Mean Corpuscular Hemoglobin 30.6 pg (27.0-33.0); Mean Corpuscular Volume 91.1 fL (80.0-98.0); Mean Platelet Volume 10.6 fL (9.4-12.3); Monocytes Absolute Auto 0.5 X10*3/uL (0.1-1.2); Monocytes Percent Auto 7.6 % (2-11); Neutrophils Absolute Auto 2.5 x10*3/uL (2.0-8.3); Neutrophils Percent Auto 38.4 % (45-73); Platelet Count 264 X10*3/uL (160-400); Red Blood Count 4.38 X10*6/uL (4.20-5.50); Red Cell Distribution Width 12.7 % (11.0-16.0); White Blood Count 6.6 X10*3/uL (4.8-10.8)
[2023-11-28 13:56] LABS: Alanine Aminotransferase 11 U/L (0-31); Albumin Level 4.3 g/dL (3.5-5.0); Alkaline Phosphatase 64 U/L (39-117); Anion Gap 10 (12-20); Aspartate Amino Transferase 14 U/L (5-31); Bilirubin Total 0.5 mg/dL (0.0-1.0); Blood Urea Nitrogen 17 mg/dL (9-16); Calcium 9.7 mg/dL (8.4-10.2); Carbon Dioxide 29 mmol/L (22-29); Chloride 107 mmol/L (96-108); Cholesterol 186 mg/dL (<200); Estimated Glomerular Filt Rate > 60; Glucose Fasting 98 mg/dL (60-99); HDL Cholesterol 58 mg/dL (>40); LDL Cholesterol Calculated 112 mg/dL (<100); Potassium 3.8 mmol/L (3.3-5.1); Sodium 142 mmol/L (135-145); Total Protein 7.2 g/dL (6.5-8.0); Triglycerides 82 mg/dL (<150)
[2023-11-28 14:02] LABS: Estimated Average Glucose 105 mg/dL; Hemoglobin A1c % 5.3 % (<6.0)
[2023-11-28 14:10] LABS: Creatinine Urine 153.13 mg/dL; Microalbum/Creatinine Ratio Ur 9.7 ug/mg cr (<30)
[2023-11-28 14:14] LABS: TSH reflex Free T4 0.75 uIU/mL (0.32-4.0)
== END 2023-11-28 10:21 | disposition home or self-care (01) ==
LOC: HO.HMGCLDS 10:20
PROVIDERS: PCP Internal Medicine; Visit Provider Internal Medicine
DX: D64.9 Anemia, unspecified (principal); J45.909 Unspecified asthma, uncomplicated; R73.9 Hyperglycemia, unspecified
CPT/HCPCS: 36415; 80053; 80061; 82043; 82570; 83036; 84443; 85025

== ENCOUNTER 2023-12-06 10:35 | Outpatient (REF) | payer OTHER, SELFPAY | END 2023-12-06 10:36 | disposition home or self-care (01) | LOC: HO.MAMMO 10:35 | PROVIDERS: PCP Internal Medicine; Visit Provider Internal Medicine | DX: Z12.31 Encounter for screening mammogram for malignant neoplasm of breast (principal) | CPT/HCPCS: 77063; 77067 ==

== ENCOUNTER → 2023-12-06 10:45 | Outpatient (BNV) | payer OTHER, SELFPAY | PROVIDERS: PCP Internal Medicine; Visit Provider Radiology Diagnostic Radiology | DX: Z12.31 Encounter for screening mammogram for malignant neoplasm of breast (principal) | CPT/HCPCS: 77063; 77067 ==

== ENCOUNTER 2024-01-11 13:18 | Outpatient (AMB) | payer OTHER, SELFPAY ==
--- NOTE | 2024-01-11 13:22 | A.OFFVIS_ITS ---
Vital Signs 01/11/24 13:23 Height 5 ft 5 in Weight 169 lb 12.095 oz BMI 28.2 BP 128/74 Blood Pressure Location Lt brachial Position Sitting Pulse 86 Intake Visit Reasons: pre Colonoscopy screening Intake Note: Whitney presents in the office as a colonoscopy screening. CC: She states that she feels like she is having constipation and lots of issues with her colon again. She also said her stomach has been acting up - it feels like it is swollen and painful. She cannot eat dairy products or she will have the pains in her stomach. Allergies Penicillins [PENICILLINS] Allergy (Severe, Verified 01/11/24 13:23) RASH Medication List - Last Reconciled 01/11/24 by Neena Vega MD albuterol sulfate 90 mcg/actuation (ProAir RespiClick) 2 inhalations inhalation Q6H PRN albuterol sulfate 1.25 mg (3 mL) inhalation Q4-6H PRN 30 days bismuth subsalicylate 2 tabs PO QID 10 days cholecalciferol (vitamin D3) 250 mcg PO 2XW 28 days esomeprazole magnesium 20 mg PO DAILY 90 days famotidine 20 mg PO BID 30 days fluticasone propion-salmeterol 115-21 mcg/actuation (Advair HFA) 2 puffs inhalation Q12H 30 days fluticasone propionate 50 mcg/actuation 1 spray intranasal BID 30 days ibuprofen 800 mg PO Q8H PRN lorazepam (Ativan) 1 mg PO BEDTIME PRN montelukast (Singulair) 10 mg PO BEDTIME 1 month nebulizers As directed tiotropium bromide 2.5 mcg/actuation (Spiriva Respimat) 2 puffs inhalation DAILY 30 days HPI HPI pre Colonoscopy screening: Details: GI CLINIC VISIT FOR THIS 51-YEAR-OLD FEMALE FOR FOLLOW-UP OF: ? 1. Gastroesophageal reflux disease, esophagitis presence not specified - K21.9 ? 2. History of adenomatous polyp of colon - Z86.010 ? 3. Mesenteric panniculitis - K65.4 ?LABS IN [facility]:?01/13/2020 CBC showed anemia with H&H of 10.3 and 33.5, normal electrolytes and LFTs. ? Iron studies were consistent with iron deficiency anemia with ferritin of 3 ? Serologies for celiac sprue were negative in February 2019 ? 02/11 stool occult blood x1 was positive. ?IMAGING STUDIES: 06/20/[address] scan showed: ? 1. Liver and spleen unremarkable. No adenopathy. ? 2. Right adnexal cyst 4.7 cm, new from pelvic ultrasound 02/07/2019. ? Uterine fibroids. IUD present. No ascites. ? IMPRESSION: ? Nonspecific mild haziness of the central mesenteric fat with an ? increased number of small mesenteric lymph nodes. Findings suggest an ? underlying inflammatory process which can be seen in the setting of mesenteric panniculitis. ? Enlarged heterogeneous fibroid uterus. ?04/13 ENDOSCOPIC STUDIES: EGD AND COLONOSCOPY SHOWED: ? LARYNX: Changes suggestive of LPRD ? ESOPHAGUS: Normal - biopsied to check for Chavez's ? STOMACH: Gastritis ? Colonoscopy Findings: ? Two polyps removed ? Moderate diverticulosis seen in the sigmoid colon ? Moderate hemorrhoids on retroflexed exam. ? No clear source found for anemia. ? Plan: ? Resume PO diet if nausea and vomiting has subsided. ? Repeat Colonoscopy interval based on path results - in 5 years if polyps are ? adenomatous and 10 years if polyps are hyperplastic. ? Above findings were reviewed with the patient and colon polyps and ? diverticulosis handouts ? were provided if indicated. ? BIOPSIES SHOWED: ? A. Small bowel, biopsy: Small intestinal mucosa with mildly increased ? intraepithelial lymphocytes; otherwise within normal limits. See comment. ? B. Stomach, antrum, biopsy: Moderate chronic inactive gastritis; no ? Helicobacter organisms seen. ? C. Esophagus, distal, biopsy: ? - Cardiofundic-type mucosa with moderate chronic inactive inflammation; no ? intestinal metaplasia seen. ? - Squamous mucosa within normal limits. ? D. Colon, transverse, polypectomies: Tubular adenomas; no high grade ? dysplasia or carcinoma seen. ? COMMENT: The findings in part A are non-specific. The differential diagnosis is ? broad and includes infection (e.g. viral or H. pylori), medication/drugs (e.g. ? NSAIDs), gluten sensitivity/celiac disease, bacterial overgrowth, tropical sprue ? , immunodeficiency syndromes (e.g. IgA deficiency, CVID), autoimmune enteropathy ? , Crohns and collagen vascular disease, among others. Please correlate with ? clinical and other laboratory findings ?TODAY'S VISIT CC: She states that she feels like she is having constipation and lots of issues with her colon again. She also said her stomach has been acting up - it feels like it is swollen and painful. She cannot eat dairy products or she will have the pains in her stomach. Notes abdominal pain and bloating after eating eggs and milk - denies problems with cheese and ice-cream Notes burning if she forgets to take Esomeprazole Also complains of constipation - took dulcolax and prune juice which helped. Stools were dark when she was really constipated. Had one episode of rectal bleeding when she was constipated Notes constipated when she eats white bread. 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 Notes abdominal pain, stomach gets hard and unable to eat (even drinking water can make the pain worse) Drinking [place] water with lemon helps. Notes nausea, abdominal bloating and distension Symptoms get worse with bananas, fried and spicy foods. Had an episode of vomiting a month ago after she ate late. Does not eat after 4 or 5 pm. Intermittent early satiety. Feels like a ball in her abdomen which is painful to touch Denies improvement in pain after a BM or passing gas. Denies constipation or diarrhea. Has a BM daily to every other day. Denies hard stools or straining Denies rectal bleeding Abdomen gets swollen and bloated 1/2 hr after eating. Taking Nexium twice a day (has to buy otc since Insurance does not cover) She was taking sucralfate once a day and found it to be helpful Notes constipated if she eats bread. Taking fruit juice or salad helps with constipation and notes diarrhea. ? ? ? is at [facility] after having an amputation. ? ? ? Having breathing problems after COVID infection. 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 Has grown children and 17 yr old who lives at home. ?Constipation is better and has a BM daily. ?PAST VISIT: Feeling constipated a lot - has a BM every 3 days. ? Had endometrial ablation on 03/27/20 and constipation has been worse since. ? Using OTC bisacodyl for constipation. ? Lab results reviewed with the patient. ? Having heavy menstrual bleeding - having periods twice a month and lasts for 7 to 10 days ? Her period lasted for 21 days last month. ? Taking iron pills once a day and a high iron diet. ? Notes constipation due to oral iron. ? Planning to see her tnt powder worker. ? Continues to have heartburn and constipation related to iron pills. ? Does OK if she takes antireflux medications. ? Lately has constipation due to iron pills - has a BM every 1-2 days. ? Takes an iron pill every other day. ? Takes fruit and yogurt to go - not taking any medications. ? Intermittent black stools and denies rectal bleeding ? Had an IUD placed in March, and bleeding has stopped. ? Periods were heavy in the past and have been normal since she had the IUD placed. ? LAST VISIT: ? Takes Esomperazole 20 mg, two capsules every morning. ? Sometimes she has to take three capsules. ? Unable to eat if she forgets to take it. ? Patient denies change in bowel habits, black stools or rectal bleeding ? Denies change in appetite or weight. ? Patient reports having chicken and ham soup evening of 01/27/19. She woke up at 2 ? am on 01/28/19 with sharp 10/10 epigastric pain with watery non-bloody diarrhea. ? She went back to sleep and as she was getting ready to go to work she started ? vomiting. Vomitus was greenish in color without coffee ground or BRB. Patient ? denies fever or chills. ? Her boyfriend had the same soup and did not have any symptoms. ? She has a history of intermittent constipation and denies recent change in bowel ? habits, appetite or weight. ? Pt admits to taking Ibuprofen 600 mg intermittently and last dose was a week ? ago. ? She gives a history of severe GERD since age 21 yrs and takes Nexium 40 mg 1-2 ? times daily with adequate control of symptoms. She complains of intermittent ? hoarseness. She has dysphagia which she attributes to not being able to chew ? her food well. ? She has a history of heavy periods sometimes twice a month. ? Pt reports being told that she had cervical ca. She was unable to pursue ? treatment due to lack of insurance. She is scheduled to see Customer Experience Retail Clerk on 02/05/23 [facility] Medical History Tubular adenoma of colon Atelectasis Asthma [id number] syndrome LUCI I (cervical intraepithelial neoplasia I) (~2017) Mesenteric panniculitis Chronic constipation Family history of colon cancer Uterine fibroid GERD (gastroesophageal reflux disease) Hiatal hernia Anemia Migraine Arthritis, hip Surgical History History of endometrial ablation History of esophagogastroduodenoscopy (EGD) History of colonoscopy History of bilateral tubal ligation History of removal of ovarian cyst History of appendectomy Family History Father Diabetes mellitus History of colon cancer Mother Cervical cancer Diabetes mellitus Lung cancer Maternal Aunt Cervical cancer Lung cancer Son No problems noted. Son No problems noted. Son No problems noted. Daughter No problems noted. Social History Household Members: Significant Other and Children Housing: House Are you a primary health care marketing manager to a significant other at home: No Do you presently have visiting nurse or other home services: No Alcohol intake: former Patient Tobacco Use Status: Current everyday Tobacco user Tobacco use type: Cigarette Cigarette Packs Per Day: 0.5 Cigarettes Per Day: 1 Years Smoked: 30 e-Cigarette/Vaping Use: Never Used Second Hand Smoke Exposure: No Current occupational status: employed Current occupation: [email or web address] Sexual orientation: Straight/Heterosexual Gender identity: Female Cognitive needs: No Hearing needs: No Vision needs: Yes Female Reproductive History Menstrual Age of Menarche: 12 Review of Systems Const All systems reviewed & are unremarkable except as noted in HPI and below Physical Exam Vital Signs: Last Vital Signs Pulse 86 01/11/24 13:23 BP 128/74 01/11/24 13:23 BMI result Body Mass Index 28.2 Appearance: Alert. Oriented X3. No acute distress anxious. Eyes: PERRLA, ENT: Pharynx normal. Oral Mucosa moist Neck: Normal inspection. Neck supple. CVS: Normal heart rate and rhythm. Pulses normal. Respiratory: No respiratory distress. Equal air entry bilateral, no wheezing/rales/rhonchi Abdomen: Soft and nontender. Bowel sounds are present, Skin: Skin warm and dry. Normal skin color. Normal skin turgor. Extremities: No lower extremity edema. No calf tenderness Neuro: Oriented X 3. Quality Reporting (2019) Adult ([facility] 138/08/17/68) Smoking risk assessment performed?: Yes Patient Tobacco Use Status: Current everyday Tobacco user Assessment & Plan Assessment & Plan (1) Anemia: Code(s): D64.9 - Anemia, unspecified Category: Medical (2) GERD (gastroesophageal reflux disease): Code(s): K21.9 - Gastro-esophageal reflux disease without esophagitis Category: Medical (3) Chronic constipation: Code(s): K59.09 - Other constipation Category: Medical (4) Tubular adenoma of colon: Comment: (TA on 2019 scope with positive fam hx CRC) Code(s): D12.6 - Benign neoplasm of colon, unspecified Category: Medical (5) Upper abdominal pain: Code(s): R10.10 - Upper abdominal pain, unspecified Category: Medical (6) Helicobacter pylori gastritis: Code(s): K29.70 - Gastritis, unspecified, without bleeding; B96.81 - Helicobacter pylori [H. pylori] as the cause of diseases classified elsewhere Category: Medical Plan 53 year-old female with GERD, arthritis, migraine headaches, history of cervical biopsy and anemia was hospitalized with acute onset of epigastric pain with nausea, vomting and diarrhea attributed to acute gastroenteritis/food poisoning. Symptoms of acute gastroenteritis resolved Patient has acute on chronic microcytic hypochromic anemia with heme positive stools. Anemia likely due to menstrual blood loss and is improving after endometrial ablation. Her family history is positive for colon cancer in her dad at age 62 yrs. 01/30/19 EGD showed gastritis and two 4-5 mm adenomatous polyps were removed during same day colonoscopy.? repeat colonoscopy is advised in 5 years (due 02/2024) Gastric biopsies were negative for Helicobacter pylori. Biopsies obtained from small-bowel showed Small intestinal mucosa with mildly increase intraepithelial lymphocytes; otherwise within normal limits. Small bowel changes were felt to be due to medication/drugs (e.g. NSAIDs), gluten sensitivity/celiac disease, bacterial overgrowth, tropical sprue, immunodeficiency syndromes (e.g. IgA deficiency, CVID), autoimmune enteropathy, Crohns and collagen vascular disease, among others 01/[address] scan showed mild haziness of the central mesenteric fat with an increased number of small mesenteric lymph nodes suggestive of mesenteric panniculitis of unclear stiology. She does not have any symptoms or obvious complications related to mesenteric panniculitis so no treatment is indicated at present. CRP and sed rate were normal during past hospitalization.? Serologies for celiac sprue were negative. Pt was advised to take famotidine 20 mg twice daily in addition to Nexium once a day since she is having breakthrough symptoms.? She will continue to work on losing weight (has lost 9 lbs over the past year) 12/22/22 Pt was advised a trail of FODMAP diet and to schedule an EGD for further evaluation - scheduled on 01/31/23 01/11/24 Notes abdominal pain and bloating after eating eggs and milk - denies problems with cheese and ice-cream Notes burning if she forgets to take Esomeprazole Also complains of constipation - took dulcolax and prune juice which helped. Pt advised to take [place] or coconut milk and egg whites (without the yolk) He will be scheduled for a routine colonoscopy for surveillance of colon polyps. FU in 6 months Orders: Orders Other Ref Test - [facility] Today R10.10 - Upper abdominal pain, unspecified Medications: New bisacodyl (Dulcolax (bisacodyl)) Take 4 tablets at 12 pm the day before colonoscopy appointment 20 mg (4 x 5 mg) PO ONCE 1 day 4 tabs 0RF colon prep polyethylene glycol 3350 (Miralax) Mix Miralax with 64 oz(8 cups) of Crystal light. Take 2 tablets of Dulcolax qt 12 pm. Wait to have your 1st bowel movement, then begin drinking Miralax. Drink a glass of Miralax every 10-15 minutes until you are finished. You will drink at least another 4 cups of clear liquid of your choice over the next 2 hours. Please drink as many clear liquids as possible You may have clear liquids up to four hours before your procedure 17 grams PO DAILY 1 day 238 grams 0RF Refilled cholecalciferol (vitamin D3) 250 mcg PO 2XW 28 days 30 caps 1RF E55.9 - Vitamin D deficiency, unspecified Coding Level of Care Code Est Pt Level 4 (79133) Diagnoses Anemia D64.9 GERD (gastroesophageal reflux disease) K21.9 Chronic constipation K59.09 Tubular adenoma of colon D12.6 Upper abdominal pain R10.10 Helicobacter pylori gastritis K29.70; B96.81 Time Spent (min) 25
[2024-01-11 13:23] VITALS: BP 128/74; PULSE 86; BMI 28.2
== END 2024-01-11 15:13 | disposition home or self-care (01) ==
LOC: HO.HGI 13:18
PROVIDERS: PCP Internal Medicine; Visit Provider Internal Medicine Gastroenterology
DX: D64.9 Anemia, unspecified (principal); K21.9 Gastro-esophageal reflux disease without esophagitis; K59.09 Other constipation; D12.6 Benign neoplasm of colon, unspecified; R10.10 Upper abdominal pain, unspecified; K29.70 Gastritis, unspecified, without bleeding; B96.81 Helicobacter pylori [H. pylori] as the cause of diseases classified elsewhere
CPT/HCPCS: 99214

== ENCOUNTER → 2024-01-11 13:18 | Outpatient (BNVA) | payer OTHER, SELFPAY | PROVIDERS: PCP Internal Medicine; Visit Provider Internal Medicine Gastroenterology | DX: K21.9 Gastro-esophageal reflux disease without esophagitis (principal); K59.09 Other constipation; D64.9 Anemia, unspecified; D12.6 Benign neoplasm of colon, unspecified; K29.70 Gastritis, unspecified, without bleeding; B96.81 Helicobacter pylori [H. pylori] as the cause of diseases classified elsewhere; R10.10 Upper abdominal pain, unspecified | CPT/HCPCS: 99212 ==

== ENCOUNTER 2024-02-01 12:32 | Emergency (ER) | payer OTHER, SELFPAY ==
[2024-02-01 12:36] VITALS: BP 139/90; PULSE 102; RESP 18; TEMP 36.7; BMI 27.0
--- NOTE | 2024-02-01 12:36 | ED_ITS ---
HPI - Abdominal Pain General Chief Complaint: Abdominal Pain Stated Complaint: vomiting Time Seen by Provider: 02/01/24 17:16 Source: patient Mode of arrival: ambulatory Limitations: no limitations History of Present Illness ED Provider: Lisbet Dickerson PA-C HPI narrative: 53-year-old female with a history of H pylori, asthma, GERD, constipation, allergic rhinitis, chronic back pain who presents to the ER for evaluation of epigastric discomfort for the last 3 days along with nausea, vomiting, nonbloody diarrhea. Patient reports over the weekend she went to a family democrat where several people developed vomiting and diarrhea afterward. She states her symptoms started 3 days ago when she had multiple episodes of vomiting and nonbloody diarrhea. She was having abdominal cramping at the time. Her vomiting has since resolved. She had 1 episode of diarrhea today. She has been able to tolerate p.o. and is drinking plenty of fluids. She reports epigastric discomfort and upset stomach but no significant abdominal pain. No urinary symptoms, fever, chills, chest pain or shortness of breath. MD elicited complaint: abdominal pain and other (Nausea, vomiting, diarrhea) Pertinent past history: gastritis Onset (ago): day(s) (3) Pain Consistency: intermittent Location: diffuse Severity: moderate Quality: cramping Radiation: none Migration to: no migration Exacerbating factors: nothing Relieving factors: nothing Context: possible food poisoning Associated symptoms: diarrhea Related Data Previous Rx's ?Medication ?Instructions ?Recorded nebulizers #1 ea 12/09/20 fluticasone propionate 115 2 puff inhalation Q12H 30 days #12 02/01/22 mcg-salmeterol 21 mcg/actuation grams HFA inhaler (Advair HFA) famotidine 20 mg tablet 20 mg PO BID 30 days #60 tabs 05/26/22 tiotropium bromide 2.5 2 puff inhalation DAILY 30 days #1 10/17/22 mcg/actuation mist for inhalation ea (Spiriva Respimat) montelukast 10 mg tablet 10 mg PO BEDTIME 1 month #30 tabs 12/21/22 (Singulair) bismuth subsalicylate 262 mg 2 tab PO QID 10 days #80 tabs 02/10/23 chewable tablet albuterol sulfate 1.25 mg/3 mL 1.25 mg (3 mL) inhalation Q4-6H 03/13/23 solution for nebulization PRN shortness of breath or wheezing 30 days #15 mL albuterol sulfate 90 mcg/actuation 2 inh inhalation Q6H PRN shortness 03/13/23 breath activated powder inhaler of breath or wheezing #1 ea (ProAir RespiClick) ibuprofen 800 mg tablet 800 mg PO Q8H PRN for pain #90 tabs 03/20/23 lorazepam 1 mg tablet (Ativan) 1 mg PO BEDTIME PRN anxiety/sleep 09/14/23 #14 tabs esomeprazole magnesium 20 mg 20 mg PO DAILY 90 days #90 caps 12/10/23 capsule,delayed release fluticasone propionate 50 1 spray intranasal BID 30 days #16 01/08/24 mcg/actuation nasal grams spray,suspension bisacodyl 5 mg tablet,delayed 20 mg (4 x 5 mg) PO ONCE colon 01/11/24 release (Dulcolax (bisacodyl)) prep 1 day #4 tabs cholecalciferol (vitamin D3) 250 250 mcg PO 2XW 28 days #30 caps 01/11/24 mcg (10,000 unit) capsule polyethylene glycol 3350 17 17 g PO DAILY 1 day #238 grams 01/11/24 gram/dose oral powder (Miralax) Allergies Allergy/AdvReac Type Severity Reaction Status Date / Time Penicillins [PENICILLINS] Allergy Severe RASH Verified 02/01/24 12:37 Review of Systems Review of Systems Yes all other systems are reviewed and are negative PMFSH Past Medical History Medical History Tubular adenoma of colon Atelectasis Asthma 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 LUCI I (cervical intraepithelial neoplasia I) (~2017) Mesenteric panniculitis Chronic constipation Family history of colon cancer Uterine fibroid GERD (gastroesophageal reflux disease) Hiatal hernia Anemia Migraine Arthritis, hip Surgical History History of endometrial ablation History of esophagogastroduodenoscopy (EGD) History of colonoscopy History of bilateral tubal ligation History of removal of ovarian cyst History of appendectomy Family History Family History Father Diabetes mellitus History of colon cancer Mother Cervical cancer Diabetes mellitus Lung cancer Maternal Aunt Cervical cancer Lung cancer Son No problems noted. Son No problems noted. Son No problems noted. Daughter No problems noted. Social History Social History Household Members: Significant Other and Children Housing: House Are you a primary lead care manager to a significant other at home: No Do you presently have visiting nurse or other home services: No Alcohol intake: former Patient Tobacco Use Status: Current everyday Tobacco user Tobacco use type: Cigarette Cigarette Packs Per Day: 0.5 Cigarettes Per Day: 1 Years Smoked: 30 e-Cigarette/Vaping Use: Never Used Second Hand Smoke Exposure: No Advance Directives: No Advance Directives Information Provided: No Do you have a plan to hurt others: No Plan Current occupational status: employed Current occupation: [employer] Sexual orientation: Straight/Heterosexual Gender identity: Female Cognitive needs: No Hearing needs: No Vision needs: Yes Physical Exam ED Vital Signs: Vital Signs - 24 hr 02/01/24 12:36 Temperature 98.1 F Pulse Rate 102 H Respiratory Rate 18 Blood Pressure 139/90 H Oxygen Delivery Method Room Air BMI result Body Mass Index 27.0 Appearance: Alert. Oriented X3. No acute distress. Head: normocephalic, atraumatic. Eyes: Pupils equal, round and reactive to light. ENT: Pharynx normal. No tonsillar swelling or exudate. Neck: Normal inspection. Neck supple. CVS: Normal heart rate and rhythm. Pulses normal. Respiratory: No respiratory distress. Breath sounds normal. Abdomen: Soft with mild epigastric tenderness, normal active +BS x4 Skin: Skin warm and dry. Normal skin color. Normal skin turgor. No rashes. Extremities: No lower extremity edema. No joint swelling. Neuro/psych: Oriented X 3. No motor deficit. No sensory deficit. CN II-XII intact. Normal speech and cognition. Course Course Course Narrative: This is a Rapid Medical Examination (RME) performed by Karen Carty PA-C in triage. Full HPI, ROS, assessment and treatment plan per primary provider in the Main ED. 53 yo female here for eval of epigastric abdominal pain, N/V/D, fever, chills x3 days. reports democrat on Monday where she had food that had been sitting outside. Thought the potato salad tasted funny. Her mom and her sister are ill with similar symptoms. + ttp of epigastric region. no rebound or guarding. Plan: labs, gi panel ordered Medical Decision Making Medical Decision Making [facility] Narrative: 53-year-old female presents to the ER for evaluation of epigastric discomfort along with nausea, vomiting, diarrhea with subjective fevers and chills for the last few days after going to a family democrat over the weekend. Other people from the democrat had similar GI symptoms. Overall she is feeling better, no more vomiting and only had 1 episode of nonbloody diarrhea today. No episodes of diarrhea while in the emergency department so unable to send a GI panel. On lab workup she has no leukocytosis. She has some mild hypokalemia which was repleted orally. She has been taking good p.o. fluids at home and is urinating frequently she states. While in the ER patient was given a GI cocktail with improvement in her epigastric discomfort. Most likely viral gastroenteritis that is self-resolving. We discussed supportive care and treatment she agrees with plan for discharge home. Differential Diagnosis Differential Diagnoses: The differential diagnosis associated with the presentation includes Bacterial gastroenteritis, viral gastroenteritis, dehydration, CAMILLA, colitis, appendicitis, C diff colitis, pancreatitis Admission/Observation Consideration of admission/observation: Escalation of care including admission/observation considered Lab Data [facility] Lab Attestation statement: I reviewed the patient's lab results. No leukocytosis, no anemia, mild hypokalemia 02/01/24 14:15 02/01/24 14:15 Labs: Lab Results 02/01/24 Range/Units 14:15 WBC 5.1 (4.8-10.8) X10*3/uL RBC 4.28 (4.20-5.50) X10*6/uL Hgb 13.2 (12.0-16.0) g/dl Hct 38.0 (37.0-47.0) % MCV 88.8 (80.0-98.0) fL MCH 30.8 (27.0-33.0) pg MCHC 34.7 (31.0-35.0) g/dl RDW 12.9 (11.0-16.0) % Plt Count 212 (160-400) X10*3/uL MPV 10.0 (9.4-12.3) fL Immature Gran % (Auto) 0.4 (0.0-0.4) % Neut % (Auto) 58.7 (45-73) % Lymph % (Auto) 29.5 (20-40) % Bartholomew % (Auto) 10.6 (2-11) % Eos % (Auto) 0.2 (0-4) % Baso % (Auto) 0.6 (0-2) % Lymph # (Auto) 1.5 (1.2-4.9) X10*3/uL Bartholomew # (Auto) 0.5 (0.1-1.2) X10*3/uL Eos # (Auto) 0.0 (0.0-0.4) X10*3/uL Baso # (Auto) 0.0 (0.0-0.2) X10*3/uL Abs Immat Gran (auto) 0.02 (0.00-0.03) X10*3/uL Absolute Neuts (auto) 3.0 (2.0-8.3) x10*3/uL Absolute Nucleated RBC 0.000 (0.0-0.012) X10*3/uL Nucleated RBC % (auto) 0.0 (0.0-0.2) /100WBC Sodium 139 (135-145) mmol/L Potassium 3.2 L (3.3-5.1) mmol/L Chloride 105 (96-108) mmol/L Carbon Dioxide 26 (22-29) mmol/L Anion Gap 11 L (12-20) BUN 6 L (9-16) mg/dL Creatinine 0.70 (0.5-1.4) mg/dL Estim Creat Clear Calc 92.3 Estimated GFR > 60 Random Glucose 106 (60-115) mg/dL Calcium 9.3 (8.4-10.2) mg/dL Magnesium 1.9 (1.6-2.6) mg/dL Total Bilirubin 0.2 (0.0-1.0) mg/dL AST 17 (5-31) U/L ALT 12 (0-31) U/L Alkaline Phosphatase 56 (39-117) U/L Total Protein 6.9 (6.5-8.0) g/dL Albumin 3.9 (3.5-5.0) g/dL Lipase 18 (8-78) U/L External Record Review External record reviewed: Outpatient record and Prior outpatient labs Tests considered The following testing was considered but not selected: Considered CT scan of her abdomen however her lab work was reassuring as well as her physical exam Prescription Management I considered prescription management with: Pain Medication and Antibiotic Chronic Conditions Patient?s care impacted by: Other (GERD) Medications Administered Discontinued Medications Generic Name Dose Route Start Last Admin Trade Name Freq PRN Reason Stop Dose Admin Al Hydroxide/Mg Hydroxide 30 ml 02/01/24 17:28 02/01/24 18:05 Magnesium Hydrox/Alum Hydrox 30 Ml Oral.Susp PO 02/01/24 17:29 30 ml ONCE ONE Administration Belladonna Alkaloids/Phenobarbital 10 ml 02/01/24 17:28 02/01/24 18:05 Phenobarb/Hyoscy/Atropine/Scop 10 Ml Elixir PO 02/01/24 17:29 10 ml ONCE ONE Administration Lidocaine HCl 15 ml 02/01/24 17:28 02/01/24 18:05 Lidocaine Hcl Viscous 2 % 15 Ml Solution MUCOUS MEM 02/01/24 17:29 15 ml ONCE ONE Administration Potassium Chloride 40 meq 02/01/24 17:28 02/01/24 18:05 Potassium Chloride Er 20 Meq Tab.Er.Prt PO 02/01/24 17:29 40 meq ONCE ONE Administration Discharge Plan Discharge Clinical Impression: Gastroenteritis Patient Disposition: Home, Self-Care Instructions: Gastroenteritis (DC) Additional Instructions: You lab workup today was unremarkable aside from mildly low potassium which was repleted. You most likely have a viral GI bug also known as gastroenteritis. Treatment is supportive care, symptoms usually resolve on their own in 48-72 hours. Recommend rest and plenty of oral hydration. Stick to a bland diet like soup and toast while you are not feeling well. Recommend over the counter Pepto Bismol or Imodium for upset stomach and diarrhea. Follow up with your doctor as needed. If you develop new or worsening symptoms call 911 or come back to the ER for further evaluation. Prescriptions: No Action famotidine 20 mg tablet 20 mg PO BID 30 Days Qty: 60 3RF Spiriva Respimat 2.5 mcg/actuation mist 2 puff inhalation DAILY 30 Days Qty: 1 11RF bismuth subsalicylate 262 mg tablet,chewable 2 tab PO QID 10 Days Qty: 80 0RF ibuprofen 800 mg tablet 800 mg PO Q8H PRN (Reason: for pain) Qty: 90 3RF esomeprazole magnesium 20 mg capsule,delayed release(DR/EC) 20 mg PO DAILY 90 Days Qty: 90 1RF fluticasone propionate 50 mcg/actuation spray,suspension 1 spray intranasal BID 30 Days Qty: 16 0RF Rx Instructions: administer into each nostril lorazepam [Ativan] 1 mg tablet 1 mg PO BEDTIME PRN (Reason: anxiety/sleep) Qty: 14 0RF (DME) nebulizers [facility] [place] See Rx Instructions .ROUTE .MEDSUPPLY Qty: 1 0RF Rx Instructions: As directed albuterol sulfate 1.25 mg/3 mL solution for nebulization 1.25 mg inhalation Q4-6H PRN (Reason: shortness of breath or wheezing) 30 Days Qty: 15 0RF ProAir RespiClick 90 mcg/actuation aerosol powdr breath activated 2 inh inhalation Q6H PRN (Reason: shortness of breath or wheezing) Qty: 1 11RF montelukast [Singulair] 10 mg tablet 10 mg PO BEDTIME 30 Days Qty: 30 0RF Advair HFA 115-21 mcg/actuation HFA aerosol inhaler 2 puff inhalation Q12H 30 Days Qty: 12 11RF cholecalciferol (vitamin D3) 250 mcg (10,000 unit) capsule 250 mcg PO 2XW 28 Days Qty: 30 1RF bisacodyl [Dulcolax (bisacodyl)] 5 mg tablet,delayed release (DR/EC) 20 mg PO ONCE 1 Days Qty: 4 0RF Rx Instructions: Take 4 tablets at 12 pm the day before colonoscopy appointment polyethylene glycol 3350 [Miralax] 17 gram/dose powder 17 g PO DAILY 1 Days Qty: 238 0RF Rx Instructions: Mix Miralax with 64 oz(8 cups) of Crystal light. Take 2 tablets of Dulcolax qt 12 pm. Wait to have your 1st bowel movement, then begin drinking Miralax. Drink a glass of Miralax every 10-15 minutes until you are finished. You will drink at least another 4 cups of clear liquid of your choice over the next 2 hours. Please drink as many clear liquids as possible You may have clear liquids up to four hours before your procedure Interventions: ED Discharge Assessment Last Done: 02/01/24 18:35 Discharge Date/Time: 02/01/24 18:35 Print Language: Croatian
[2024-02-01 14:29] LABS: MANUAL DIFF FLAG NO
[2024-02-01 14:30] LABS: Basophils Percent Auto 0.6 % (0-2); Eosinophils Percent Auto 0.2 % (0-4); Hemoglobin 13.2 g/dl (12.0-16.0); Imm Gran Abs Auto 0.02 X10*3/uL (0.00-0.03); Imm Gran Pct Auto 0.4 % (0.0-0.4); Lymphocytes Absolute Auto 1.5 X10*3/uL (1.2-4.9); Lymphocytes Percent Auto 29.5 % (20-40); Mean Corpuscular HGB Conc 34.7 g/dl (31.0-35.0); Mean Corpuscular Hemoglobin 30.8 pg (27.0-33.0); Mean Corpuscular Volume 88.8 fL (80.0-98.0); Monocytes Absolute Auto 0.5 X10*3/uL (0.1-1.2); Monocytes Percent Auto 10.6 % (2-11); Neutrophils Percent Auto 58.7 % (45-73); Platelet Count 212 X10*3/uL (160-400); Red Blood Count 4.28 X10*6/uL (4.20-5.50); Red Cell Distribution Width 12.9 % (11.0-16.0); White Blood Count 5.1 X10*3/uL (4.8-10.8)
[2024-02-01 14:54] LABS: Alanine Aminotransferase 12 U/L (0-31); Albumin Level 3.9 g/dL (3.5-5.0); Alkaline Phosphatase 56 U/L (39-117); Anion Gap 11 (12-20); Aspartate Amino Transferase 17 U/L (5-31); Bilirubin Total 0.2 mg/dL (0.0-1.0); Blood Urea Nitrogen 6 mg/dL (9-16); Calcium 9.3 mg/dL (8.4-10.2); Carbon Dioxide 26 mmol/L (22-29); Chloride 105 mmol/L (96-108); Creatinine Clr Calc Pharmacy 92.3; Estimated Glomerular Filt Rate > 60; Glucose Random 106 mg/dL (60-115); Lipase 18 U/L (8-78); Magnesium 1.9 mg/dL (1.6-2.6); Potassium 3.2 mmol/L (3.3-5.1); Sodium 139 mmol/L (135-145); Total Protein 6.9 g/dL (6.5-8.0)
[2024-02-01 17:50] VITALS: BP 139/89; PULSE 94; RESP 20; TEMP 37.6; O2SAT 98
[2024-02-01] MEDS: Magnesium Hydrox/Alum Hydrox 30 ML ORAL.SUSP PO (18:05)
[2024-02-01] MEDS: PHENobarb/Hyoscy/Atropine/Scop 10 ML ELIXIR PO (18:05)
[2024-02-01] MEDS: Lidocaine HCl Viscous 2 % 15 ML SOLUTION MUCOUS MEM (18:05)
[2024-02-01] MEDS: Potassium Chloride ER 20 MEQ TAB.ER.PRT 40 MEQ PO (18:05)
[2024-02-01 18:35] VITALS: BP 139/89; PULSE 94; RESP 20; TEMP 37.6; O2SAT 98
== END 2024-02-01 18:35 | disposition home or self-care (01) ==
PROVIDERS: Physician Assistant Medical; Emergency Provider Emergency Medicine; PCP Internal Medicine
DX: K52.9 Noninfective gastroenteritis and colitis, unspecified (principal); R10.13 Epigastric pain
CPT/HCPCS: 36415; 80053; 83690; 83735; 85025; 99283

== ENCOUNTER 2024-07-11 10:40 | Outpatient (AMB) | payer OTHER, SELFPAY ==
--- NOTE | 2024-07-11 10:51 | A.OFFVIS_ITS ---
Vital Signs 07/11/24 10:59 Height 5 ft 5 in Weight 170 lb BMI 28.3 BP 111/72 Blood Pressure Location Lt brachial Position Sitting Pulse 100 Intake Visit Reasons: 6 month follow up Intake Note: Patient 6 month follow up Anemia. Patient cc: constipation with blood, acid reflex with burning sensation. Patient denies any other GI issues for today visit. Pipeman Required: No Accompanied by: Self / Same As Patient Allergies Penicillins [PENICILLINS] Allergy (Severe, Verified 07/11/24 10:47) RASH Medication List - Last Reconciled 07/11/24 by Neena Vega MD albuterol sulfate 1.25 mg (3 mL) inhalation Q4-6H PRN 30 days cholecalciferol (vitamin D3) 250 mcg PO 2XW 28 days esomeprazole magnesium 20 mg PO DAILY 90 days famotidine 20 mg PO BID 30 days fluticasone propion-salmeterol 115-21 mcg/actuation (Advair HFA) 2 puffs inhalation Q12H 30 days fluticasone propionate 50 mcg/actuation 1 spray intranasal BID 30 days montelukast (Singulair) 10 mg PO BEDTIME 1 month nebulizers As directed polyethylene glycol 3350 (Miralax) 17 grams PO DAILY 1 day ProAir RespiClick 90 mcg/actuation (albuterol sulfate) 2 inhalations inhalation Q6H PRN NS tiotropium bromide 2.5 mcg/actuation (Spiriva Respimat) 2 puffs inhalation DAILY 30 days HPI HPI 6 month follow up: Details: GI CLINIC VISIT FOR THIS 53-YEAR-OLD FEMALE FOR FOLLOW-UP OF: ? 1. Gastroesophageal reflux disease, esophagitis presence not specified - K21.9 ? 2. History of adenomatous polyp of colon - Z86.010 ? 3. Mesenteric panniculitis - K65.4 ?TODAY'S VISIT Patient cc: constipation with blood, acid reflex with burning sensation. Pt was called and unable to schedule her colonoscopy last year due to lack of insurance Having constipation and tried Miralax which was not helpful Taking 2 stool softeners (Tona 100 mg) at bedtime and has been helpful and would like a prescription. If I dont take my medications - cant even drink water Taking a PPI, Famotidine and sucralfate with adequate control sucralfate Has been loosing wt (intentional) and feels a lot better. PAST VISIT: She also said her stomach has been acting up - it feels like it is swollen and painful. She cannot eat dairy products or she will have the pains in her stomach. Notes abdominal pain and bloating after eating eggs and milk - denies problems with cheese and ice-cream Notes burning if she forgets to take Esomeprazole Also complains of constipation - took dulcolax and prune juice which helped. Stools were dark when she was really constipated. Had one episode of rectal bleeding when she was constipated Notes constipated when she eats white bread. 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 Notes abdominal pain, stomach gets hard and unable to eat (even drinking water can make the pain worse) Drinking [place] water with lemon helps. Notes nausea, abdominal bloating and distension Symptoms get worse with bananas, fried and spicy foods. Had an episode of vomiting a month ago after she ate late. Does not eat after 4 or 5 pm. Intermittent early satiety. Feels like a ball in her abdomen which is painful to touch Denies improvement in pain after a BM or passing gas. Denies constipation or diarrhea. Has a BM daily to every other day. Denies hard stools or straining Denies rectal bleeding Abdomen gets swollen and bloated 1/2 hr after eating. Taking Nexium twice a day (has to buy otc since Insurance does not cover) She was taking sucralfate once a day and found it to be helpful Notes constipated if she eats bread. Taking fruit juice or salad helps with constipation and notes diarrhea. ? ? ? is at [facility] after having an amputation. ? ? ? Having breathing problems after COVID infection. 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 Has grown children and 17 yr old who lives at home. ?Constipation is better and has a BM daily. ?PAST VISIT: Feeling constipated a lot - has a BM every 3 days. ? Had endometrial ablation on 03/27/20 and constipation has been worse since. ? Using OTC bisacodyl for constipation. ? Lab results reviewed with the patient. ? Having heavy menstrual bleeding - having periods twice a month and lasts for 7 to 10 days ? Her period lasted for 21 days last month. ? Taking iron pills once a day and a high iron diet. ? Notes constipation due to oral iron. ? Planning to see her financial assistance advisor. ? Continues to have heartburn and constipation related to iron pills. ? Does OK if she takes antireflux medications. ? Lately has constipation due to iron pills - has a BM every 1-2 days. ? Takes an iron pill every other day. ? Takes fruit and yogurt to go - not taking any medications. ? Intermittent black stools and denies rectal bleeding ? Had an IUD placed in March, and bleeding has stopped. ? Periods were heavy in the past and have been normal since she had the IUD placed. ? LAST VISIT: ? Takes Esomperazole 20 mg, two capsules every morning. ? Sometimes she has to take three capsules. ? Unable to eat if she forgets to take it. ? Patient denies change in bowel habits, black stools or rectal bleeding ? Denies change in appetite or weight. ? Patient reports having chicken and ham soup evening of 01/27/19. She woke up at 2 ? am on 01/28/19 with sharp 10/10 epigastric pain with watery non-bloody diarrhea. ? She went back to sleep and as she was getting ready to go to work she started ? vomiting. Vomitus was greenish in color without coffee ground or BRB. Patient ? denies fever or chills. ? Her boyfriend had the same soup and did not have any symptoms. ? She has a history of intermittent constipation and denies recent change in bowel ? habits, appetite or weight. ? Pt admits to taking Ibuprofen 600 mg intermittently and last dose was a week ? ago. ? She gives a history of severe GERD since age 21 yrs and takes Nexium 40 mg 1-2 ? times daily with adequate control of symptoms. She complains of intermittent ? hoarseness. She has dysphagia which she attributes to not being able to chew ? her food well. ? She has a history of heavy periods sometimes twice a month. ? Pt reports being told that she had cervical ca. She was unable to pursue ? treatment due to lack of insurance. She is scheduled to see Final Assembly Worker on 02/05/23 ?LABS IN [facility]:?01/13/2020 CBC showed anemia with H&H of 10.3 and 33.5, normal electrolytes and LFTs. ? Iron studies were consistent with iron deficiency anemia with ferritin of 3 ? Serologies for celiac sprue were negative in February 2019 ? 02/11 stool occult blood x1 was positive. ?IMAGING STUDIES: 06/20/[address] scan showed: ? 1. Liver and spleen unremarkable. No adenopathy. ? 2. Right adnexal cyst 4.7 cm, new from pelvic ultrasound 02/07/2019. ? Uterine fibroids. IUD present. No ascites. ? IMPRESSION: ? Nonspecific mild haziness of the central mesenteric fat with an ? increased number of small mesenteric lymph nodes. Findings suggest an ? underlying inflammatory process which can be seen in the setting of mesenteric panniculitis. ? Enlarged heterogeneous fibroid uterus. ?04/13 ENDOSCOPIC STUDIES: EGD AND COLONOSCOPY SHOWED: ? LARYNX: Changes suggestive of LPRD ? ESOPHAGUS: Normal - biopsied to check for Chavez's ? STOMACH: Gastritis ? Colonoscopy Findings: ? Two polyps removed ? Moderate diverticulosis seen in the sigmoid colon ? Moderate hemorrhoids on retroflexed exam. ? No clear source found for anemia. ? Plan: ? Resume PO diet if nausea and vomiting has subsided. ? Repeat Colonoscopy interval based on path results - in 5 years if polyps are ? adenomatous and 10 years if polyps are hyperplastic. ? Above findings were reviewed with the patient and colon polyps and ? diverticulosis handouts ? were provided if indicated. ? BIOPSIES SHOWED: ? A. Small bowel, biopsy: Small intestinal mucosa with mildly increased ? intraepithelial lymphocytes; otherwise within normal limits. See comment. ? B. Stomach, antrum, biopsy: Moderate chronic inactive gastritis; no ? Helicobacter organisms seen. ? C. Esophagus, distal, biopsy: ? - Cardiofundic-type mucosa with moderate chronic inactive inflammation; no ? intestinal metaplasia seen. ? - Squamous mucosa within normal limits. ? D. Colon, transverse, polypectomies: Tubular adenomas; no high grade ? dysplasia or carcinoma seen. ? COMMENT: The findings in part A are non-specific. The differential diagnosis is ? broad and includes infection (e.g. viral or H. pylori), medication/drugs (e.g. ? NSAIDs), gluten sensitivity/celiac disease, bacterial overgrowth, tropical sprue ? , immunodeficiency syndromes (e.g. IgA deficiency, CVID), autoimmune enteropathy ? , Crohns and collagen vascular disease, among others. Please correlate with ? 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 LUCI I (cervical intraepithelial neoplasia I) (~2017) Mesenteric panniculitis Chronic constipation Family history of colon cancer Uterine fibroid GERD (gastroesophageal reflux disease) Hiatal hernia Anemia Migraine Arthritis, hip Surgical History History of endometrial ablation History of esophagogastroduodenoscopy (EGD) History of colonoscopy History of bilateral tubal ligation History of removal of ovarian cyst History of appendectomy Family History Father Diabetes mellitus History of colon cancer Mother Cervical cancer Diabetes mellitus Lung cancer Maternal Aunt Cervical cancer Lung cancer Son No problems noted. Son No problems noted. Son No problems noted. Daughter No problems noted. Social History Household Members: Significant Other and Children Housing: House Are you a primary respiratory care specialist to a significant other at home: No Do you presently have visiting nurse or other home services: No Alcohol intake: former Patient Tobacco Use Status: Current everyday Tobacco user Tobacco use type: Cigarette Cigarette Packs Per Day: 0.5 Cigarettes Per Day: 1 Years Smoked: 30 e-Cigarette/Vaping Use: Never Used Second Hand Smoke Exposure: No Current occupational status: employed Current occupation: [employer] Sexual orientation: Straight/Heterosexual Gender identity: Female Cognitive needs: No Hearing needs: No Vision needs: Yes Female Reproductive History Menstrual Age of Menarche: 12 Review of Systems Const All systems reviewed & are unremarkable except as noted in HPI and below Physical Exam Vital Signs: Last Vital Signs Pulse 100 07/11/24 10:59 BP 111/72 07/11/24 10:59 BMI result Body Mass Index 28.3 Appearance: Alert. Oriented X3. No acute distress anxious. Eyes: PERRLA, ENT: Pharynx normal. Oral Mucosa moist Neck: Normal inspection. Neck supple. CVS: Normal heart rate and rhythm. Pulses normal. Respiratory: No respiratory distress. Equal air entry bilateral, no wheezing/rales/rhonchi Abdomen: Soft and nontender. Bowel sounds are present, Skin: Skin warm and dry. Normal skin color. Normal skin turgor. Extremities: No lower extremity edema. No calf tenderness Neuro: Oriented X 3. Quality Reporting (2019) Adult ([facility] 138/08/17/68) Smoking risk assessment performed?: Yes Patient Tobacco Use Status: Current everyday Tobacco user Assessment & Plan Assessment & Plan (1) GERD (gastroesophageal reflux disease): Code(s): K21.9 - Gastro-esophageal reflux disease without esophagitis Category: Medical (2) Chronic constipation: Code(s): K59.09 - Other constipation Category: Medical (3) Tubular adenoma of colon: Comment: (TA on 2019 scope with positive fam hx CRC) Code(s): D12.6 - Benign neoplasm of colon, unspecified Category: Medical (4) Upper abdominal pain: Code(s): R10.10 - Upper abdominal pain, unspecified Category: Medical (5) Helicobacter pylori gastritis: Code(s): K29.70 - Gastritis, unspecified, without bleeding; B96.81 - Helicobacter pylori [H. pylori] as the cause of diseases classified elsewhere Category: Medical Plan 53 year-old female with GERD, arthritis, migraine headaches, history of cervical biopsy and anemia was hospitalized with acute onset of epigastric pain with nausea, vomting and diarrhea attributed to acute gastroenteritis/food poisoning. Symptoms of acute gastroenteritis resolved Patient has acute on chronic microcytic hypochromic anemia with heme positive stools. Anemia likely due to menstrual blood loss and is improving after endometrial ablation. Her family history is positive for colon cancer in her dad at age 62 yrs. 01/30/19 EGD showed gastritis and two 4-5 mm adenomatous polyps were removed during same day colonoscopy.? repeat colonoscopy is advised in 5 years (due 02/2024) Gastric biopsies were negative for Helicobacter pylori. Biopsies obtained from small-bowel showed Small intestinal mucosa with mildly increase intraepithelial lymphocytes; otherwise within normal limits. Small bowel changes were felt to be due to medication/drugs (e.g. NSAIDs), gluten sensitivity/celiac disease, bacterial overgrowth, tropical sprue, immunodeficiency syndromes (e.g. IgA deficiency, CVID), autoimmune enteropathy, Crohns and collagen vascular disease, among others 01/[address] scan showed mild haziness of the central mesenteric fat with an increased number of small mesenteric lymph nodes suggestive of mesenteric panniculitis of unclear stiology. She does not have any symptoms or obvious complications related to mesenteric panniculitis so no treatment is indicated at present. CRP and sed rate were normal during past hospitalization.? Serologies for celiac sprue were negative. Pt was advised to take famotidine 20 mg twice daily in addition to Nexium once a day since she is having breakthrough symptoms.? She will continue to work on losing weight (has lost 9 lbs over the past year) 12/22/22 Pt was advised a trail of FODMAP diet and to schedule an EGD for further evaluation - scheduled on 01/31/23 01/11/24 Notes abdominal pain and bloating after eating eggs and milk - denies problems with cheese and ice-cream Notes burning if she forgets to take Esomeprazole Also complains of constipation - took dulcolax and prune juice which helped. Pt advised to take [place] or coconut milk and egg whites (without the yolk) He will be scheduled for a routine colonoscopy for surveillance of colon polyps. 07/11/24 Taking 2 stool softeners (Tona 100 mg) at bedtime and has been helpful and would like a prescription. If I dont take my medications - cant even drink water Taking a PPI, Famotidine and sucralfate with adequate control sucralfate Has been loosing wt (intentional) and feels a lot better. Pt is ready to schedule her colonoscopy (FU of colon polyps) Request sent to GI neurosurgical physician assistant FU in 6 month Medications: New bisacodyl (Dulcolax (bisacodyl)) Take 2 tablets at 12 pm daily starting 3 days before colonoscopy appointment 10 mg (2 x 5 mg) PO ONCE 3 days 6 tabs 0RF colon prep docusate sodium 200 mg (2 x 100 mg) PO BEDTIME 90 days 180 caps 1RF K59.09 - Other constipation polyethylene glycol 3350 (Miralax) Mix Miralax with 64 oz(8 cups) of Crystal light. Take 2 tablets of Dulcolax qt 12 pm. Wait to have your 1st bowel movement, then begin drinking Miralax. Drink a glass of Miralax every 10-15 minutes until you are finished. You will drink at least another 4 cups of clear liquid of your choice over the next 2 hours. Please drink as many clear liquids as possible You may have clear liquids up to four hours before your procedure 17 grams PO DAILY 1 day 238 grams 0RF Changed From famotidine 20 mg PO BID 30 days 60 tabs 3RF K21.9 - Gastro-esophageal reflux disease without esophagitis To famotidine 20 mg PO BID 90 days 180 tabs 1RF K21.9 - Gastro-esophageal reflux disease without esophagitis Refilled esomeprazole magnesium 20 mg PO DAILY 90 days 90 caps 1RF K21.9 - Gastro- esophageal reflux disease without esophagitis fluticasone propionate 50 mcg/actuation administer into each nostril 1 spray intranasal BID 30 days 16 grams 0RF Coding Level of Care Code Est Pt Level 4 (89878) Diagnoses GERD (gastroesophageal reflux disease) K21.9 Chronic constipation K59.09 Tubular adenoma of colon D12.6 Upper abdominal pain R10.10 Helicobacter pylori gastritis K29.70; B96.81 Time Spent (min) 24
[2024-07-11 10:59] VITALS: BP 111/72; PULSE 100; BMI 28.3
== END 2024-07-11 12:00 | disposition home or self-care (01) ==
PROVIDERS: PCP Internal Medicine; Visit Provider Internal Medicine Gastroenterology
DX: K21.9 Gastro-esophageal reflux disease without esophagitis (principal); K59.09 Other constipation; D12.6 Benign neoplasm of colon, unspecified; R10.10 Upper abdominal pain, unspecified; K29.70 Gastritis, unspecified, without bleeding; B96.81 Helicobacter pylori [H. pylori] as the cause of diseases classified elsewhere
CPT/HCPCS: 99214

== ENCOUNTER → 2024-07-11 10:40 | Outpatient (BNVA) | payer OTHER, SELFPAY | PROVIDERS: PCP Internal Medicine; Visit Provider Internal Medicine Gastroenterology | DX: K21.9 Gastro-esophageal reflux disease without esophagitis (principal); K59.09 Other constipation; K29.70 Gastritis, unspecified, without bleeding; B96.81 Helicobacter pylori [H. pylori] as the cause of diseases classified elsewhere; D12.6 Benign neoplasm of colon, unspecified; R10.10 Upper abdominal pain, unspecified | CPT/HCPCS: 99212 ==

== ENCOUNTER 2024-12-09 10:27 | Outpatient (REF) | payer OTHER, SELFPAY ==
--- OUTSIDE RECORDS SUMMARY | 2024-12-09 11:39 | XMS_ITS | Clinical Summary ---
Author Organization [employer] Address [address] [place] [address] Care Team Providers Care Software Development Specialist Name Role Phone Unavailable Primary Care Provider Unavailabl e Allergies Active Allergy Reactions Criticality Noted Date Comments Penicillins 09/13/2016 Medications omeprazole (PriLOSEC) [address] capsule Take 1 capsule by mouth at bed time. 7 Active Sodium Fluoride 1.1 % creamIndication s:Severe dental caries [place] teeth for 2 minutes, morning and night. Spit, do not rinse. Do not eat or drink anything for 30 minutes following use. 112 g 3 5 Active Active Problems Problem Noted Date Diagnosed Date DUB (dysfunctional uterine bleeding) 09/13/2016 Chronic low back pain 06/13/2016 Epigastric pain 06/13/2016 Major depression single episode, in partial alex ssion 06/13/2016 Smoker 06/13/2016 Weight decreased 06/13/2016 Encounters Date Type Department Care Team Description 12/03/2024 Telephone [facility] [address] [place] [address] Can Mcnulty DMD appts 10/15/2024 2:00 PM EDT Office Visit [facility] [address] [place] [address] Can Mcnulty DMD Severe dental caries (Primary Dx); Periodontal disease 09/16/2024 1:00 PM EDT Office Visit [facility] [address] [place] [address] Yannick Ortiz Dental calculus (Primary Dx); Dental caries; Partial edentulism, unspecified edentulism class from Last 3 Months Social History Tobacco Use Types Packs/Day Years Used Date Smoking Tobacco: Every Day Cigarettes Passive Smoke Exposure: Never Smokeless Tobacco: Never Tobacco Cessation:Ready to Q uit: Not Asked; Counseling Given: Not Answered Alcohol Use Standard Drinks/Week Comments Never 0 (1 standard drink = 0.6 oz pur e alcohol) Comments Unknown Sex and Gender Information Value Date Recorded Sex Assigned at Female 04/25/2022 10:30 AM EDT Legal Sex Female 10:30 AM EDT Gender Identity Female 04/25/2022 10:30 AM EDT Sexual Orientation Straight 04/25/2022 10 :30 AM EDT Last Filed Vital Signs Vital Sign Reading Time Taken Comments Blood Pressure 136/70 10/15/2024 2:24 PM EDT Pulse 75 09/16/2024 1:08 PM EDT Temperature - - Respiratory Rate - - Oxygen Saturation - - Inhaled Oxygen Concentration - - Weight - - Height - - Body Mass Index - - Plan of Treatment Upcoming Encounters Date Type Department Care Team ([facility] st Contact Info) Description 12/25/2024 8:00 AM EDT Office Visit [facility] [address] [place] [address] Can Mcnulty, DMD [address] [place] [address] Health Maintenance Due Date Last Done Comments CT Colonography 1969 Colonoscopy 1969 Colorectal Cancer Screening 1969 Depression Screening 1969 FIT DNA/Cologuard 1969 FIT 1969 FOBT 1969 HIV Screening 1969 Lipid Panel 1969 SDOH Screening 1969 Sigmoidoscopy 1969 Disability Screening 1969 Alcohol/Substance Use Screening 1981 Hepatitis C Screening 11/03/1987 DTaP/Tdap/Td Vaccines (1 - Tdap) 1988 Hepatitis B Vaccines (1 of 3 - 19+ 3-dose series) 1988 Pap Smear 1990 Mammogram 2009 Zoster Vaccines (1 of 2) 11/03/2019 Cervical Cancer Screening 09/14/2021 HPV/Cotest 09/14/2021 09/14/2016 Pneumococcal Vaccine: 50+ Years (2 of 2 - PCV) 07/15/2022 07/15/2021, 01/28/2019 COVID-19 Vaccine (4 - 2023-2 5 season) 2024 09/03/2021, 02/18/2021, 01/28/2021 Influenza Vaccine (Season Ended) 2025 07/15/2021, 04/04/2019, 06/13/2016 Dental Oral Exam 03/20/2025 09/16/2024, 09/23/2016 Dental Prophylaxis 03/20/2025 09/16/2024, 11/03/2016 Dental X-Ray: Bitewings 09/17/2025 09/17/19, 01/22/2019, 09/23/2016 Tobacco Screening 10/15/2025 10/15/2024 Dental X-Ray: Full Mouth 09/18/2027 025, 09/23/2016 RSV Patients and Patients Aged 60 years or older (1 - 1-dose 75+ series) 2044 HIB Vaccines Aged Out No longer eligi ble based on patient's age to complete this topic HPV Vaccines Aged Out No longer eligi ble based on patient's age to complete this topic Hepatitis A Vaccines Aged Out No long er eligible based on patient's age to complete this topic IPV Vaccines Aged Out No longer eligi ble based on patient's age to complete this topic Meningococcal B Vaccine Aged Out No l onger eligible based on patient's age to complete this topic Meningococcal Vaccine Aged Out No oskar neo eligible based on patient's age to complete this topic RSV under 20 months Aged Out No longe r eligible based on patient's age to complete this topic Rotavirus Vaccines Aged Out No longer eligible based on patient's age to complete this topic Procedures Procedure Name Priority Date/Time Associated Diagnosis Comments CASE PRESENTATION, DETAILED AND EXTENSIVE TREATMENT PLANNING Routine 10/15/2024 2:00 PM EDT Severe dental caries Periodontal disease 2 EXTRACTION, ERUPTED TOOTH OR EXPOSED ROOT (ELEVATION/FORCEPS REMOVAL) Routine 10/15/2024 2:00 PM EDT Severe dental caries Periodontal disease 20 EXTRACTION, ERUPTED TOOTH OR EXPOSED ROOT (ELEVATION/FORCEPS REMOVAL) Routine 10/15/2024 2:00 PM EDT Severe dental caries 14 EXTRACTION, ERUPTED TOOTH OR EXPOSED ROOT (ELEVATION/FORCEPS REMOVAL) Routine 10/15/2024 2:00 PM EDT Severe dental caries 28 EXTRACTION, ERUPTED TOOTH OR EXPOSED ROOT (ELEVATION/FORCEPS REMOVAL) Routine 10/15/2024 2:00 PM EDT Severe dental caries 29 EXTRACTION, ERUPTED TOOTH OR EXPOSED ROOT (ELEVATION/FORCEPS REMOVAL) Routine 10/15/2024 2:00 PM EDT Severe dental caries PERIODIC ORAL EVALUATION - ESTABLISHED PATIENT Routine 09/16/2024 1:00 PM EDT Dental caries Partial edentulism, unspecified edentulism class ORAL HYGIENE INSTRUCTIONS Routine 09/16/2024 1:00 PM EDT Dental caries Partial edentulism, unspecified edentulism class INTRAORAL - COMPLETE SERIES OF RADIOGRAPHIC IMAGES Routine 09/16/2024 1:00 PM EDT Dental caries Partial edentulism, unspecified edentulism class PROPHYLAXIS - ADULT Routine 09/16/2024 1 :00 PM EDT Dental caries Partial edentulism, unspecified edentulism class CASE PRESENTATION, DETAILED AND EXTENSIVE TREATMENT PLANNING Routine 09/16/2024 1:00 PM EDT Dental caries Partial edentulism, unspecified edentulism class 21 O AMALGAM FILLING Routine 09/16/2024 12:00 AM EDT 15 O AMALGAM FILLING Routine 09/16/2024 12:00 AM EDT 13 MO COMPOSITE FILLING Routine 09/16/2024 12:00 AM EDT 11 MIFL COMPOSITE FILLING Routine 09/16/2024 12:00 AM EDT 10 MDL COMPOSITE FILLING Routine 09/16/2024 12:00 AM EDT 9 MIDFL COMPOSITE FILLING Routine 09/16/2024 12:00 AM EDT 3 LO AMALGAM FILLING Routine 09/16/2024 12:00 AM EDT 2 O AMALGAM FILLING Routine 09/16/2024 1 2:00 AM EDT 5 CROWN - PORCELAIN/CERAMIC Routine 09/16/2024 12:00 AM EDT 5 ROOT CANAL Routine 09/16/2024 12:00 AM EDT 6 ROOT CANAL Routine 09/16/2024 12:00 AM EDT 20 ROOT CANAL Routine 09/16/2024 12:00 AM EDT 7 PONTIC - PORCELAIN/CERAMIC Routine 09/16/2024 12:00 AM EDT 6 RETAINER CROWN - PORCELAIN/CERAMIC Routine 09/16/2024 12:00 AM EDT 8 RETAINER CROWN - PORCELAIN/CERAMIC Routine 09/16/2024 12:00 AM EDT [place] HISTORICAL HPV MRNA E6/E7 Routine 09/14/2016 2:15 PM EDT from Last 3 Months or Most Recently Relevant to Health Maintenance Results * (ABNORMAL) HPV mRNA E6/E7 (09/14/2016 2:15 PM EDT) HPV mRNA E6/E7 DETECTED( AA) NOT DETECTED [facility] Comment: This test was performed using the APTIMA(R) HPV Assay ([employer] This assay detects E6/E7 viral messenger RNA (mRNA) from 14 high-risk HPV types (16,18,31,33,35,39,45,51, 52,56,58,59,66,68). For additional information please refer to: http://education.Web and Rank/faq/MVJ066s7 (This link is being provided for informational/ educational purposes only.) Test Performed by [email or web address], [facility], [address] [place] [address] Raheem Whalen M.D., Ph.D., Director of Laboratories , [facility] [id number] Please note: ??Effective 03/07/2016, HPV testing will be performed using [employer]'s APTIMA test which targets mRNA. Detecting mRNA instead of DNA, as in older methods, offers significant improvements in specificity. 09/14/2016 2:15 PM EDT us Vanda Go CNM HISTORICAL/NON ORDERABLE LABS Final Result [facility] [address] from Last 3 Months or Most Recently Relevant [place] [id number] [facility] STAND ADULT
== END 2024-12-09 10:28 | disposition home or self-care (01) ==
LOC: HO.MAMMO 10:27
PROVIDERS: PCP Internal Medicine; Visit Provider Internal Medicine
DX: Z12.31 Encounter for screening mammogram for malignant neoplasm of breast (principal)
CPT/HCPCS: 77063; 77067

== ENCOUNTER → 2024-12-09 10:30 | Outpatient (BNV) | payer OTHER, SELFPAY | PROVIDERS: PCP Internal Medicine; Visit Provider Internal Medicine | DX: Z12.31 Encounter for screening mammogram for malignant neoplasm of breast (principal) | CPT/HCPCS: 77063; 77067 ==

== ENCOUNTER 2024-12-19 13:26 | Outpatient (AMB) | payer OTHER, MEDICAID, SELFPAY ==
[2024-12-19 13:29] VITALS: BP 122/70; PULSE 83; O2SAT 100; BMI 30.1
--- NOTE | 2024-12-19 13:29 | MHC.OFFVIS ---
Vital Signs 12/19/24 13:29 Height 5 ft 5 in Weight 180 lb 12.465 oz BMI 30.1 BP 122/70 Blood Pressure Location Lt brachial Position Sitting Pulse 83 Pulse Source Pulse Oximeter Pulse Oximetry (%) 100 Oxygen Delivery Method Room Air Intake Visit Reasons: Lungs text Insurance Advisor Required: No Accompanied by: self Allergies Penicillins (PENICILLINS) Allergy (Severe, Verified 12/19/24 13:31) RASH HPI Comments Details: The patient is a 54-year-old woman with a known history of asthma and also tobacco dependency who was in her usual state health until back in September when she was diagnosed with COVID-19. Initially her COVID-19 infection was not very significant. Her symptoms did improve. However, she noticed that her breathing her asthma were not stable. Unfortunately she continues smoking throughout this period. She has been using her rescue inhaler more often has been using her Advair. Still in November her symptoms became significantly worse decided to come back to the ED because she was not doing well with worsening cough and shortness of breath and wheezing. She was diagnosed with an asthma exacerbation but she also had a COVID test came back positive again. The patient was able to go home and she was placed on steroids. Still her breathing is not where it needs to be. She still feels short of breath with minimal activity. 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 She is cutting down the smoking down to about 5-10 cigarettes a day. She knows she needs to quit. We did talk about different alternatives to quitting. She is willing to try the Nicotrol inhaler as an option to substituting the way she gets the nicotine and hopefully decreasing it further into she can stop. On examination today she does have some wheezing. Will work on optimizing her respiratory therapy by adding a long-acting muscarinic antagonist and providing her with low-dose amount of steroids to try to help her improve her respiratory status. 05/24/2021 the patient is here for a pulmonary follow-up visit. Overall she is feeling a lot better. she states that she did get a different job. in her previous job she was exposed to powder paint and also fumes that were harsh for her breathing and significant dust in her environment. In addition to that she had been smoking more regularly. She was also recovering COVID. The patient now is smoking less. She did get the Nicotrol inhaler. He does help but if she does use it more often she gets irritation in the throat so therefore she has not been able to maximize the use. 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 Therefore her breathing is better. She does use the Advair regularly. The Incruse she may use it every other day. She does not require her short-acting beta agonist as often. I will send a RespiClick for her to have available as needed. We did review her last CT scan of the chest PE protocol that was back in November 2020. At this point the patient with smoking history will be a good candidate for the lung cancer screening program. Therefore will have her follow-up in the summer of 2021 and will make a referral to our lung cancer screening program at that time. In the meantime she is going to continue with respiratory therapy and she is going to continue with smoking cessation. If the patient has any issues between now and then she is to call the office for an earlier evaluation. 02/01/2022 the patient has a telephone visit. Overall the patient is doing well. She is having symptoms typically in the morning with chest tightness and wheezing. Moderate severity. Usually albuterol helps her symptoms. She has been without the Advair because it was not been able to be filled at the pharmacy. Therefore she has been only using the Spiriva. I did rescind the medications to the pharmacy in asked her to call the office if she has any difficulties getting it. She should use the Advair in the morning the Spiriva later on the daytime to cover her for the 24 hours. In the meantime she continues smoking. The patient is high risk for malignancy. I will refer her to the lung cancer screening program at this time. She is also complaining about some issues of lightheadedness and decreased oxygen when she changes positions. This started happening after COVID. Likely residual COVID-19 symptoms. She is going to monitor closely her symptoms stay hydrated and try to change positions slowly to minimize symptoms. 10/03/2022 the patient is here for pulmonary follow-up visit. The patient is doing better. She is using the Advair with good effect. She has not been using the Spiriva since has not been that helpful. She still having episodes when she wakes up at nighttime with wheezing. The patient usually has use her rescue inhaler every night. She does have triggers including he from her home sometimes is high from her children play with a heater. She also gets exposed by other potential triggers irritants. She is still working on the smoking. She is cutting down and she is hopeful she can quit altogether. On examination she is doing well though diminished breath sounds. Will due to her ongoing respiratory complaints will going to optimize her respiratory therapy by switching her Advair over to breztri inhaler. She can try that if she does not feel that is helpful she can always go back on the Advair. She is participating in the lung cancer screening program. She is scheduled have a CT scan in the fall. Will follow up with her sometime after that. 12/19/2024 the patient is here for a pulmonary follow-up visit. Overall she is doing well. She continues on the Advair and also Spiriva. She also has a rescue inhaler. She does not like the RespiClick. I will request a regular HFA inhaler. No recent imaging studies to review. She was taking part of the lung cancer screening program. Unfortunately she continues to smoke cigarettes. Will make another referral to the lung cancer screening program as she was lost to follow up especially during the pandemic. She should be getting a CAT scan about now. We will follow up in a year's time she will continue with the current respiratory regimen. She is not quite ready to quit smoking just yet although I did encourage her to start cutting down. Whenever she is ready she needs medication help more assistance. 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 I (cervical intraepithelial neoplasia I) (~2017) Mesenteric panniculitis Chronic constipation Family history of colon cancer Uterine fibroid GERD (gastroesophageal reflux disease) Hiatal hernia Anemia Migraine Arthritis, hip Surgical History History of endometrial ablation History of esophagogastroduodenoscopy (EGD) History of colonoscopy History of bilateral tubal ligation History of removal of ovarian cyst History of appendectomy Family History Father Diabetes mellitus History of colon cancer Mother Cervical cancer Diabetes mellitus Lung cancer Maternal Aunt Cervical cancer Lung cancer Son No problems noted. Son No problems noted. Son No problems noted. Daughter No problems noted. Social History Household Members: Significant Other and Children Housing: House Are you a primary medicare compliance auditor to a significant other at home: No Do you presently have visiting nurse or other home services: No Alcohol intake: former Patient Tobacco Use Status: Current everyday Tobacco user Tobacco use type: Cigarette Cigarette Packs Per Day: 0.5 Cigarettes Per Day: 1 Years Smoked: 30 e-Cigarette/Vaping Use: Never Used Second Hand Smoke Exposure: No Current occupational status: employed Current occupation: [employer] Sexual orientation: Straight/Heterosexual Gender identity: Female Cognitive needs: No Hearing needs: No Vision needs: Yes Female Reproductive History Menstrual Age of Menarche: 12 Review of Systems Const Denies night sweats ENT Denies change in voice, Denies lip swelling, Denies mouth pain, Reports nasal congestion, Reports nasal discharge and Denies tongue swelling Card Denies chest pain and Reports dyspnea on exertion Resp Reports cough, Denies pain with cough, Reports dyspnea on exertion and Reports wheezing GI Denies abdominal pain Musc Denies no additional complaints Neuro Denies Neuro-related abnormal movements Psych Denies no additional complaints Renzo/Lymph Denies easy bleeding and Denies lymphadenopathy Aller/Immun Denies lip swelling, Denies tongue swelling and Reports wheezing Physical Exam Vital Signs: Last Vital Signs Pulse 83 12/19/24 13:29 BP 122/70 12/19/24 13:29 Pulse Ox 100 12/19/24 13:29 Oxygen Delivery Method Room Air 12/19/24 13:29 BMI result Body Mass Index 30.1 Const General: alert Eyes Pupils: Equal, round and reactive pupils present Neck Neck: Yes normal visual inspection, Yes full ROM and Yes no lymphadenopathy Chest Chest palpation & inspection: normal inspection of the chest Resp Auscultation: clear to auscultation bilaterally and no wheezes Cardio Rate: regular rate Rhythm: regular rhythm Heart sounds: S1 normal heart sound present and S2 normal heart sound present GI Palpation (GI): Soft to palpation and nontender Auscultation: normal bowel sounds General: Yes no CVA tenderness Back/Spine/Pelvis Back: no CVA tenderness Skin General skin exam: rashes and/or lesions noted Neuro Cranial nerves: Yes Equal, round and reactive pupils present Assessment & Plan Assessment & Plan (1) Asthma: Code(s): J45.909 - Unspecified asthma, uncomplicated Category: Medical Qualifiers: Asthma complication type: uncomplicated Asthma persistence: persistent Asthma severity: moderate Qualified Code(s): J45.40 - Moderate persistent asthma, uncomplicated (2) Tobacco dependence: Code(s): F17.200 - Nicotine dependence, unspecified, uncomplicated Category: Medical (3) Atelectasis: Code(s): J98.11 - Atelectasis Category: Medical Plan Advair HFA spiriva TENZIN as needed LDCT referral F/U 12 months Orders: Referrals Lung Cancer Screening Referral F17.200 - Nicotine dependence, unspecified, uncomplicated Medications: New albuterol sulfate 90 mcg/actuation 2 inhalations inhalation Q6H PRN 18 grams 12RF shortness of breath or wheezing 30 days J44.9 - Chronic obstructive pulmonary disease, unspecified Refilled tiotropium bromide 2.5 mcg/actuation (Spiriva Respimat) 2 puffs inhalation DAILY 1 ea 11RF 30 days montelukast (Singulair) 10 mg PO BEDTIME 1 month 30 tabs 0RF fluticasone propion-salmeterol 115-21 mcg/actuation (Advair HFA) 2 puffs inhalation Q12H 12 grams 11RF 30 days Coding Level of Care Code Est Pt Level 4 (54605) Diagnoses Moderate persistent asthma without complication J45.40 Asthma complication type: uncomplicated Asthma persistence: persistent Asthma severity: moderate Tobacco dependence F17.200 Atelectasis J98.11 Time Spent (min) 17
--- OUTSIDE RECORDS SUMMARY | 2024-12-19 16:13 | XMS_ITS | Clinical Summary ---
Author Organization [employer] Address [address] [place] [address] Care Team Providers Care Regulatory Auditor Name Role Phone Unavailable Primary Care Provider Unavailabl e Allergies Active Allergy Reactions Criticality Noted Date Comments Penicillins 09/13/2016 Medications omeprazole (PriLOSEC) [address] capsule Take 1 capsule by mouth at bed time. 7 Active Sodium Fluoride 1.1 % creamIndication s:Severe dental caries [place] teeth for 2 minutes, morning and night. [...] Type Department Care Team Description 12/03/2024 Telephone [facility] [address] [place] [address] Can Mcnulty DMD appts 10/15/2024 2:00 PM EDT Office Visit [facility] [address] [place] [address] Can Mcnulty DMD Severe dental caries (Primary Dx); Periodontal disease from Last 3 Months Social History Tobacco [...] Upcoming Encounters Date Type Department Care Team (Late st Contact Info) Description 12/25/2024 8:00 AM EDT Office Visit [facility] [address] [place] [address] Can Mcnulty, DMD [address] [place] [address] Health Maintenance Due Date Last Done Comments [...] 03/20/2025 09/16/2024, 11/03/2016 Dental X-Ray: Bitewings 09/17/2025 09/17/19 25, 01/22/2019, 09/23/2016 Tobacco Screening 10/15/2025 10/15/2024 Dental [...] 10/15/2024 2:00 PM EDT Severe dental caries PROPHYLAXIS - ADULT Routine 09/16/2024 1 :00 PM EDT Dental caries Partial edentulism, unspecified edentulism class INTRAORAL - COMPLETE SERIES OF RADIOGRAPHIC IMAGES Routine 09/16/2024 1:00 PM EDT Dental caries Partial edentulism, unspecified edentulism class PERIODIC ORAL EVALUATION - ESTABLISHED PATIENT Routine 09/16/2024 1:00 PM EDT Dental caries Partial edentulism, unspecified edentulism class [facility] HISTORICAL HPV MRNA E6/E7 Routine 09/14/2016 2:15 PM EDT from Last 3 Months or Most Recently Relevant to Health Maintenance Results * (ABNORMAL) HPV mRNA E6/E7 (09/14/2016 2:15 PM EDT) Pathologist [facility] HPV mRNA E6/E7 DETECTED( AA) NOT DETECTED [facility] Comment: This test was performed using the APTIMA(R) HPV Assay ([employer] This assay detects E6/E7 viral messenger RNA (mRNA) from 14 high-risk HPV types (16,18,31,33,35,39,45,51, 52,56,58,59,66,68). For additional information please refer to: http://education.Smart Ecosystems.DeYapa/faq/DAM612i9 (This link is being provided for informational/ educational purposes only.) Test Performed by [employer], [facility], [address] [place] [id number] Raheem Whalen M.D., Ph.D., Director of Laboratories , [facility] [id number] Please note: Effective 03/07/2016, HPV testing will be performed using [employer]'s APTIMA test which targets mRNA. Detecting mRNA instead of DNA, as in older methods, offers significant improvements in specificity. 09/14/2016 2:15 PM EDT us Vanda Go CNM HISTORICAL/NON ORDERABLE LABS Final Result [facility] [address] from Last 3 Months or Most Recently Relevant to Health Maintenance Insurance [facility] MEDICAID STAND ADULT
== END 2024-12-19 14:20 | disposition home or self-care (01) ==
LOC: HO.HPS 13:27
PROVIDERS: PCP Internal Medicine; Visit Provider Hospitalist
DX: J45.40 Moderate persistent asthma, uncomplicated (principal); F17.200 Nicotine dependence, unspecified, uncomplicated; J98.11 Atelectasis
CPT/HCPCS: 99214

== ENCOUNTER → 2024-12-19 13:26 | Outpatient (BNVA) | payer OTHER, SELFPAY | PROVIDERS: PCP Internal Medicine; Visit Provider Hospitalist | DX: J45.40 Moderate persistent asthma, uncomplicated (principal); F17.200 Nicotine dependence, unspecified, uncomplicated; J98.11 Atelectasis | CPT/HCPCS: 99212 ==

== ENCOUNTER 2024-12-30 13:07 | Outpatient (AMB) | payer OTHER, SELFPAY ==
--- OUTSIDE RECORDS SUMMARY | 2024-12-30 13:36 | XMS_ITS | Clinical Summary ---
Author Organization [employer] Address [address] [facility] [address] [place] [address] Care Team Providers Care Well Drill Operator Cable Tool Name Role Phone Unavailable Primary Care Provider Unavailabl e Allergies Active Allergy Reactions Criticality Noted Date Comments Penicillins 09/13/2016 Medications omeprazole (PriLOSEC) [address] capsule Take 1 capsule by mouth at bed time. 7 Active Sodium Fluoride 1.1 % creamIndication s:Severe dental caries [place] teeth for 2 minutes, morning and night. [...] Type Department Care Team Description 12/03/2024 Telephone [facility] [address] [place] [address] Can Mcnulty DMD appts 10/15/2024 2:00 PM EDT Office Visit [facility] [address] [place] [address] Can Mcnulty DMD Severe dental caries (Primary [...] Mass Index - - Plan of Treatment Health Maintenance Due Date Last Done Comments [...] season) 2024 09/03/2021, 02/18/2021, 01/28/2021 Influenza Vaccine (#1) 2025 , 04/04/2019, 06/13/2016 Dental Oral Exam 03/20/2025 09/16/2024, [...] HPV mRNA E6/E7 DETECTED( AA) NOT DETECTED [facility] Comment: This test was performed using the APTIMA(R) HPV Assay ([employer] This assay detects E6/E7 viral messenger RNA (mRNA) from 14 high-risk HPV types (16,18,31,33,35,39,45,51, 52,56,58,59,66,68). For additional information please refer to: http://education.Chewse/faq/LMB623r8 (This link is being provided for informational/ educational purposes only.) Test Performed by [employer], [address] [place] [address] Raheem Whalen M.D., Ph.D., Director of Laboratories , [place] [id number] Please note: Effective 03/07/2016, HPV testing will be performed using [employer]'s APTIMA test which targets mRNA. Detecting mRNA instead of DNA, as in older methods, offers significant improvements in specificity. 09/14/2016 2:15 PM EDT us aVnda Go CNM HISTORICAL/NON ORDERABLE LABS Final Result [facility] [address] from Last 3 Months or Most Recently Relevant to Health Maintenance Insurance [facility] ST[place]
[2024-12-30 13:40] VITALS: BP 122/74; PULSE 86; RESP 18; TEMP 36.7; O2SAT 98; BMI 30.4
--- NOTE | 2024-12-30 13:40 | A.OFFPC_ITS ---
Vital Signs 12/30/24 13:40 Height 5 ft 5 in Weight 183 lb BMI 30.4 BP 122/74 Blood Pressure Location Lt brachial Position Sitting Respiration 18 Pulse 86 Pulse Source Pulse Oximeter Temp 98.1 F Temp Source Oral Pulse Oximetry (%) 98 Oxygen Delivery Method Room Air Intake Visit Reasons: Annual PE- PHQ-9 needed. Intake Note: Pt is here today for PE. Pt states that she needs a referral to eye specilaist. Allergies Penicillins (PENICILLINS) Allergy (Severe, Verified 12/30/24 13:45) RASH Medication List - Last Reconciled 12/30/24 by Ena Nj MD albuterol sulfate 1.25 mg (3 mL) inhalation Q4-6H PRN 30 days albuterol sulfate 90 mcg/actuation 2 inhalations inhalation Q6H PRN 30 days bisacodyl (Dulcolax (bisacodyl)) 10 mg (2 x 5 mg) PO ONCE 3 days cholecalciferol (vitamin D3) 250 mcg PO 2XW 28 days docusate sodium 200 mg (2 x 100 mg) PO BEDTIME 90 days esomeprazole magnesium 20 mg PO DAILY 90 days famotidine 20 mg PO BID 90 days fluticasone propion-salmeterol 115-21 mcg/actuation (Advair HFA) 2 puffs inhalation Q12H 30 days fluticasone propionate 50 mcg/actuation 1 spray intranasal BID 90 days montelukast (Singulair) 10 mg PO BEDTIME 90 days nebulizers As directed polyethylene glycol 3350 (Miralax) 17 grams PO DAILY 1 day ProAir RespiClick 90 mcg/actuation (albuterol sulfate) 2 inhalations inhalation Q6H PRN NS tiotropium bromide 2.5 mcg/actuation (Spiriva Respimat) 2 puffs inhalation DAILY 30 days Tobacco use date assessed: 12/30/24 Dental Screening Dental Screen Date: 12/30/24 Did you have a dental visit in the last 12 months?: Yes Did you have a dental problem in the last 6 months where you did not have access to dental care?: No Was dental information given to patient?: Patient has dentist HPI Annual PE- PHQ-9 needed. HPI Details Patient presents for physical. She complains of allergic rhinitis sneezing itchy eyes all year round. She has been taking nida-bfr-bipqhaf antihistamine ,using Flonase nasal spray with only partial relief. Patient w ants to be referred to funding analyst for testing. Patient complains of recurrent right lower back pain worse when walking or sitting for long time. Patient denies pain radiating to lower extremity. She had a cortisone injection by [facility] a few years ago with good relief. 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 LUCI I (cervical intraepithelial neoplasia I) (~2017) Mesenteric panniculitis Chronic constipation Family history of colon cancer Uterine fibroid GERD (gastroesophageal reflux disease) Hiatal hernia Anemia Migraine Arthritis, hip Surgical History History of endometrial ablation History of esophagogastroduodenoscopy (EGD) History of colonoscopy History of bilateral tubal ligation History of removal of ovarian cyst History of appendectomy Family History Father Diabetes mellitus History of colon cancer Mother Cervical cancer Diabetes mellitus Lung cancer Maternal Aunt Cervical cancer Lung cancer Son No problems noted. Son No problems noted. Son No problems noted. Daughter No problems noted. Social History Household Members: Significant Other and Children Housing: House Are you a primary home health aide caregiver to a significant other at home: No Do you presently have visiting nurse or other home services: No Alcohol intake: former Patient Tobacco Use Status: Current everyday Tobacco user Tobacco use type: Cigarette Cigarette Packs Per Day: 0.5 Cigarettes Per Day: 1 Years Smoked: 30 e-Cigarette/Vaping Use: Never Used Second Hand Smoke Exposure: No service: No Current occupational status: employed Current occupation: [employer] Sexual orientation: Straight/Heterosexual Gender identity: Female Cognitive needs: No Hearing needs: No Vision needs: Yes Female Reproductive History Menstrual Age of Menarche: 12 Questionnaire PHQ-9 Over the last 2 weeks, how often have you been bothered by any of the following problems? 1. Little interest or pleasure in doing things: not at all 2. Feeling down, depressed, or hopeless: several days 3. Trouble falling or staying asleep, or sleeping too much: nearly every day 4. Feeling tired or having little energy: several days 5. Poor appetite or overeating: nearly every day 6. Feeling bad about yourself - or that you are a failure or have let yourself or your family down: not at all 7. Trouble concentrating on things, such as reading the newspaper or watching television: not at all 8. Moving or speaking so slowly that other people could have noticed. Or the opposite - being so fidgety or restless that you have been moving around a lot more than usual: not at all 9. Thoughts that you would be better off or of hurting yourself in some way: not at all Total score: 8 Depression Screening Interpretation: Negative Depression Screening Done: Yes 21523 - PHQ-9 Billing: Yes Source: Developed by Drs. Festus Birch, Vania Shah, Cj Chahal and colleagues, with an educational minh from [employer]. Thrive Questionnaire Date Thrive assessed: 12/30/24 I am a: Patient What is your living situation today?: I have a place to live, but I am worried about losing it in the future Within the past 12 months, did the food you bought not last and you didn't have the money to get more?: Often true Within the past 12 months, did you worry whether your food would run out before you got money to buy more?: Often true Do you have trouble paying for medicines?: No Do you have trouble getting transportation to medical appointments?: No Do you have trouble paying your heating and electricity bill?: Yes Do you have trouble taking care of your child, family member or friend?: No Do you have trouble with day-to-day activities such as bathing, preparing meals, shopping, managing finances, etc.?: No Are you currently unemployed and looking for a job?: Yes Are you interested in more education?: No Currently or been in a relationship where the following occur: I choose not to answer THRIVE Score: 4 AUDIT C Alcohol Use Questionnaire (AUDIT-C) 1. How often do you have a drink containing alcohol?: Monthly or less 2. How many drinks containing alcohol do you have on a typical day when you are drinking?: 3 or 4 3. How often do you have six or more drinks on one occasion?: Never Total Score: 2 SHAMA-7 AMB Questionnaire SHAMA-7 Date SHAMA - 7 assessed: 12/30/24 Feeling nervous, anxious, or on edge: 3 = Nearly every day Not being able to stop or control worryin = Several days Worrying too much about different things: 1 = Several days Trouble relaxin = Not at all Being so restless that it is hard to sit still: 0 = Not at all Becoming easily annoyed or irritable: 0 = Not at all Feeling afraid as if something awful might happen: 0 = Not at all Total SHAMA-7 score (0-4 normal; 5-9 mild; 10-14 moderate; 15-21 severe): 5 Source: Developed by Drs. Festus Birch, Vania Shah, Cj Chahal and colleagues, with an educational minh from [employer]. SHAMA-7 Assessment Billing SHAMA-7 Assessment Tool: SHAMA-7 Assessment 06814 Review of Systems Const All systems reviewed & are unremarkable except as noted in HPI and below Eyes Reports no additional complaints ENT Reports no additional complaints Card Reports no additional complaints Resp Reports no additional complaints GI Reports no additional complaints Reports no additional complaints Physical exam (Primary Care) Vital Signs: Last Vital Signs Temp 98.1 F 12/30/24 13:40 Pulse 86 12/30/24 13:40 Resp 18 12/30/24 13:40 BP 122/74 12/30/24 13:40 Pulse Ox 98 12/30/24 13:40 Oxygen Delivery Method Room Air 12/30/24 13:40 BMI result Body Mass Index 30.4 Tobacco/Smoking Status: Tobacco use Status Tobacco use date assessed 12/30/24 12/30/24 13:48 Patient Tobacco Use Status Current everyday Tobacco 12/30/24 13:48 Tobacco use type Cigarette 12/30/24 13:48 e-Cigarette/Vaping Use Never Used 12/30/24 13:48 Depression Screening Interpretation: Negative Thrive Assessment: Date of Thrive Assessment Date Thrive assessed 09/27/24 12/30/24 13:48 Currently or been in a relationship where the following occur: I choose not to answer Const General: no acute distress HENMT Head: Yes normal to inspection Ears: TM's normal bilaterally Throat: Yes posterior oropharynx normal Eyes General: appearance normal, both eyes and all related structures Neck Neck: Yes no lymphadenopathy and Yes supple Resp Effort & Inspection: normal respiratory effort Auscultation: clear to auscultation bilaterally Cardio Rhythm: regular rhythm Heart sounds: S1 normal heart sound present and S2 normal heart sound present GI Inspection: Yes normal to inspection Palpation (GI): Soft to palpation Percussion: Yes normal to percussion Auscultation: normal bowel sounds Extrem General: Yes no clubbing, cyanosis or edema Coding Level of Care Code Est Pt Prev Care 40-64y(95060) Diagnoses Sacroiliac joint pain M53.3 Tubular adenoma of colon D12.6 Annual physical exam Z00.00 Hyperglycemia R73.9 Allergic rhinitis J30.9 Moderate persistent asthma without complication J45.40 Asthma complication type: uncomplicated Asthma persistence: persistent Asthma severity: moderate Additional Codes SHAMA-7 Assessment Billing - SHAMA-7 Assessment Tool: SHAMA-7 Assessment 69890 ([id number]) PHQ-9 - 25122 - PHQ-9 Billing: Yes ([id number]) Assessment & Plan Assessment & Plan (1) Sacroiliac joint pain: Code(s): M53.3 - Sacrococcygeal disorders, not elsewhere classified Category: Medical Plan: Referred to pain management, patient declined physical therapy (2) Tubular adenoma of colon: Comment: (TA on 2019 scope with positive fam hx CRC) Code(s): D12.6 - Benign neoplasm of colon, unspecified Category: Medical Plan: Patient is established with [facility]. She will be referred to GI for overdue colonoscopy (3) Annual physical exam: Code(s): Z00.00 - Encounter for general adult medical examination without abnormal findings Category: Medical Plan: Well-balanced diet regular physical activity discussed with the patient she is up-to-date with the mammogram pelvic exam by equity research analyst (4) Hyperglycemia: Code(s): R73.9 - Hyperglycemia, unspecified Category: Medical Plan: ADA diet increase physical activity discussed with the patient. Check A1c (5) Allergic rhinitis: Code(s): J30.9 - Allergic rhinitis, unspecified Category: Medical Plan: Continue antihistamine and Flonase nasal spray referred to funding analyst for allergy testing (6) Asthma: Code(s): J45.909 - Unspecified asthma, uncomplicated Category: Medical Qualifiers: Asthma complication type: uncomplicated Asthma persistence: persistent Asthma severity: moderate Qualified Code(s): J45.40 - Moderate persistent asthma, uncomplicated Plan: Continue inhaler follow-up with pulmonology Orders: Orders Comprehensive [place]. Panel Fast Today R73.9 - Hyperglycemia, unspecified, Z00.00 - Encounter for general adult medical examination without abnormal findings Complete Blood Count Auto Diff Today R73.9 - Hyperglycemia, unspecified, Z00.00 - Encounter for general adult medical examination without abnormal findings Lipid Panel Today R73.9 - Hyperglycemia, unspecified, Z00.00 - Encounter for general adult medical examination without abnormal findings UA w Microscopic Today R73.9 - Hyperglycemia, unspecified, Z00.00 - Encounter for general adult medical examination without abnormal findings Hemoglobin A1c Today R73.9 - Hyperglycemia, unspecified, Z00.00 - Encounter for general adult medical examination without abnormal findings Vitamin D 25-OH Total Today R73.9 - Hyperglycemia, unspecified, Z00.00 - Encounter for general adult medical examination without abnormal findings TSH reflex Free T4 Today R73.9 - Hyperglycemia, unspecified, Z00.00 - Encounter for general adult medical examination without abnormal findings Referrals Pain Management Referral M53.3 - Sacrococcygeal disorders, not elsewhere classified Gastroenterology Referral D12.6 - Benign neoplasm of colon, unspecified Medications: New lidocaine 5% leave on most painful area for up to 12 hrs 1 patch topical DAILY 30 ea 3RF Discontinued albuterol sulfate Discontinued Reason: Doctor's Order 1.25 mg (3 mL) inhalation Q4-6H 30 days PRN 15 mL 0RF shortness of breath or wheezing
== END 2024-12-30 14:25 | disposition home or self-care (01) ==
LOC: HO.HMCC 13:08
PROVIDERS: PCP Internal Medicine; Visit Provider Internal Medicine
DX: M53.3 Sacrococcygeal disorders, not elsewhere classified (principal); D12.6 Benign neoplasm of colon, unspecified; Z00.00 Encounter for general adult medical examination without abnormal findings; R73.9 Hyperglycemia, unspecified; J30.9 Allergic rhinitis, unspecified; J45.40 Moderate persistent asthma, uncomplicated

== ENCOUNTER → 2024-12-30 13:07 | Outpatient (BNVA) | payer OTHER, SELFPAY | PROVIDERS: PCP Internal Medicine; Visit Provider Internal Medicine | DX: Z00.00 Encounter for general adult medical examination without abnormal findings (principal); M53.3 Sacrococcygeal disorders, not elsewhere classified; D12.6 Benign neoplasm of colon, unspecified; R73.9 Hyperglycemia, unspecified; J30.9 Allergic rhinitis, unspecified; J45.40 Moderate persistent asthma, uncomplicated | CPT/HCPCS: 96127; 99396 ==

== ENCOUNTER 2025-04-10 07:24 | Outpatient (REF) | payer OTHER, SELFPAY ==
--- NOTE | ~2025-04-10 | CT_ITS ---
EXAMINATION: CT LUNG SCREENING HISTORY: F17.210 - Nicotine dependence, cigarettes, uncomplicated TECHNIQUE: Low dose axial images were obtained from the sternal notch to upper abdomen without IV contrast per standard departmental protocol. Sagittal and coronal reformatted images were also obtained and reviewed. One or more of the following techniques was used for dose reduction: Automated exposure control, adjustment of the mA and/or kV according to patient size, use of iterative reconstruction technique. DLP: 60 mGy-cm COMPARISON: Radius chest CT April 2022 chest CTA November 2020 FINDINGS: Lung nodules: Mild apical pleural-parenchymal scarring. Stable 3 mm peripheral or subpleural right upper lobe nodule along the minor fissure axial image 58 series 5. No new or suspicious pulmonary nodule. Central airways are clear. Emphysema: none Coronary Calcification: none Aortic Arch Calcification: none Potentially Significant Incidentals : none Additional Chest Findings: There is no pleural or pericardial effusion. No mediastinal or axillary lymphadenopathy is identified. Visualized upper abdomen: The visualized portions of the liver, spleen, and adrenals have an unremarkable unenhanced appearance. Degenerative changes of the spine. CT/CT lung screening IMPRESSION: Mild biapical pleural and parenchymal scarring. No new or suspicious pulmonary nodule. LUNG-RADS ASSESSMENT: Lung-RADS 2: Benign MANAGEMENT: Continue annual screening with LDCT in 12 months Category S: N/A Electronically signed by: Katy Szymanski MD 04/10/2025 08:30 AM EDT
--- OUTSIDE RECORDS SUMMARY | 2025-04-10 07:28 | XMS_ITS | Clinical Summary ---
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 7 Active Sodium Fluoride 1.1 % creamIndication s:Severe dental caries [place] teeth for 2 minutes, morning and night. Spit, do not rinse. Do not eat or drink anything for 30 minutes following use. 112 g 3 5 Active Additional Information Patient not taking.Reported on 03/04/2025 ibuprofen 600 MG tablet Take 1 tablet (600 mg) by mouth every 6 (six) hours if needed for mild pain for up to 20 doses. 20 tablet 5 Active Additional Information Patient not taking.Reported on 03/04/2025 azithromycin (Zithromax) 250 MG tablet Take 2 tabs (500mg) on Day 1, and then 1 tab on Days 2-5. 6 tablet 5 Active Additional Information Patient not taking.Reported on 03/04/2025 Active Problems Problem Noted Date Diagnosed Date DUB (dysfunctional uterine bleeding) 09/13/2016 Chronic low back pain 06/13/2016 Epigastric pain 06/13/2016 Major depression single episode, in partial alex ssion 06/13/2016 Smoker 06/13/2016 Weight decreased 06/13/2016 Encounters Date Type Department Care Team Description 03/04/2025 1:00 PM EDT Office Visit [facility] [address] [place] [address] Can Mcnulty DMD Dental caries (Primary Dx); History of root canal treatment 03/03/2025 Travel 02/10/2025 1:00 PM EDT Office Visit [facility] [address] [place] [address] Karsten UlyssesRODRIGUE emersonS 02/07/2025 9:30 AM EDT Office Visit [facility] [address] [place] [address] Mauricio, Gaby, OD Presbyopia (Primary Dx) from Last 3 Months Social History Tobacco [...] Sign Reading Time Taken Comments Blood Pressure 126/80 02/10/2025 1:14 PM EDT Pulse 75 09/16/2024 1:08 PM [...] 07/15/2022 07/15/2021, 01/28/2019 COVID-19 Vaccine (4 - 2024-2 6 season) 2025 09/03/2021, 02/18/2021, 01/28/2021 Influenza Vaccine (#1) 2025 , 04/04/2019, 06/13/2016 Dental Oral Exam 03/20/2025 09/16/2024, 09/23/2016 Dental Prophylaxis 03/20/2025 09/16/2024, 11/03/2016 Dental X-Ray: Bitewings 09/17/2025 09/17/19, 01/22/2019, 09/23/2016 Tobacco Screening 03/04/2026 03/04/2025 Dental X-Ray: Full Mouth 09/18/2027 025, 09/23/2016 [...] PRESENTATION, DETAILED AND EXTENSIVE TREATMENT PLANNING Routine 03/04/2025 1:00 PM EDT Dental caries History of root canal treatment 11 PREFABRICATED POST AND CORE IN ADDITION TO CROWN Routine 03/04/2025 1:00 PM EDT Dental caries History of root canal treatment 11 ENDODONTIC THERAPY, ANTERIOR TOOTH Routine 02/10/2025 1:00 PM EDT CASE PRESENTATION, DETAILED AND EXTENSIVE TREATMENT PLANNING Routine 02/10/2025 1:00 PM EDT PROPHYLAXIS - ADULT Routine 09/16/2024 1 :00 [...] HPV mRNA E6/E7 DETECTED( AA) NOT DETECTED [facility] Comment: This test was performed using the APTIMA(R) HPV Assay ([employer] This assay detects E6/E7 viral messenger RNA (mRNA) from 14 high-risk HPV types (16,18,31,33,35,39,45,51, 52,56,58,59,66,68). For additional information please refer to: http://education.DotSpots/faq/YPW377s6 (This link is being provided for informational/ educational purposes only.) Test [facility] by [facility] [place], [address] [place] [address] Raheem Whalen M.D., Ph.D., Director of Laboratories , [place] [id number] Please note: Effective 03/07/2016, HPV testing will be performed using [employer]'s APTIMA test which targets mRNA. Detecting mRNA instead of DNA, as in older methods, offers significant improvements in specificity. 09/14/2016 2:15 PM EDT Vanda Go CNM HISTORICAL/NON ORDERABLE LABS Final Result [facility] [address] [id number], from Last 3 Months or Most Recently Relevant to Health Maintenance Insurance [facility] STANDARD DENTAL-[facility] MEDICAID STAND ADULT [address] MACIE SOMERS
--- OUTSIDE RECORDS SUMMARY | 2025-04-10 07:28 | XMS_ITS | Encounter Summary ---
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 Name Role Phone Unavailable Primary Care Provider Unavailabl e Reason for Visit * Reason Onset Date Comments appts 12/03/2024 Encounter Details Date Type Department Care Team ([facility] st Contact Info) Description 12/03/2024 Telephone [facility] [address] [place] [address] HamletCan poon, DMD [address] [place] [address] appts Social History Tobacco Use Types Packs/Day Years Used Date Smoking Tobacco: Every Day Cigarettes Passive Smoke Exposure: Never Smokeless Tobacco: Never Alcohol Use Standard Drinks/Week Comments Never 0 (1 standard drink = 0.6 oz pur e alcohol) Comments Unknown Sex and Gender Information Value Date Recorded Sex Assigned at Female 04/25/2022 10:30 AM EDT Legal Sex Female 10:30 AM EDT Gender Identity Female 04/25/2022 10:30 AM EDT Sexual Orientation Straight 04/25/2022 10 :30 AM EDT documented as of this encounter Miscellaneous Notes * Telephone Encounter - Maria Guadalupe Gruber - 12/03/2024 4:06 PM EDT Patient states last appt was 11/14 for extractions and states she will has treatment to be done andis looking to be scheduled. Please reach out to patient for scheduling. documented in this encounter Plan of Treatment Not on file documented as of this encounter Visit Diagnoses Not on filedocumented in this encounter
== END 2025-04-10 07:25 | disposition home or self-care (01) ==
LOC: HO.CT 07:24
PROVIDERS: PCP Internal Medicine; Visit Provider Internal Medicine
DX: Z12.2 Encounter for screening for malignant neoplasm of respiratory organs (principal); F17.210 Nicotine dependence, cigarettes, uncomplicated
CPT/HCPCS: 71271

== ENCOUNTER → 2025-04-10 07:32 | Outpatient (BNV) | payer OTHER, SELFPAY | PROVIDERS: PCP Internal Medicine; Visit Provider Radiology Diagnostic Radiology | DX: F17.210 Nicotine dependence, cigarettes, uncomplicated (principal) | CPT/HCPCS: 71271 ==